=== PATIENT | female | born 1965 | race Native Hawaiian/Other Pacific Islander ===

== ENCOUNTER 2017-06-07 08:54 | Inpatient (IN) | payer OTHER, SELFPAY ==
[2017-06-07] VITALS (27 sets, daily range): BP systolic 133–202; BP diastolic 80–111; PULSE 60–98; RESP 14–20; TEMP 36.1–37.1; O2SAT 96–99; BMI 36.0; BMI 37.3
--- NOTE | 2017-06-07 | IR_ITS ---
CARDIAC CATHETERIZATION DATE OF CATHETERIZATION:06/07/2017 4:00 PM PROCEDURES: 1. Left heart catheterization 2. Left ventriculogram 3. Selective coronary angiogram INDICATION FOR TEST: 1. Suspected acute ST elevation myocardial infarction Informed consent was obtained prior to the procedure. COMPLICATIONS: None ESTIMATED BLOOD LOSS: Less than 10 ml. TECHNIQUE: One percent lidocaine used to anesthetize the right anterior aspect of the wrist. The right radial artery was accessed via the Seldinger technique. A 6 Yi sheath was placed in the right radial artery. 2.5 mg of verapamil, 800 mcg of nitroglycerin and 5000 U Heparin were given through the arterial sheath. The trap catheter was also used to perform left heart catheterization and left ventriculography. At the end of the procedure the patient was transferred to the post-op holding area in stable condition for arterial sheath removal. ANGIOGRAPHIC RESULTS: 1. The left main artery normal 2. The left anterior descending artery mild luminal irregularities 3. The circumflex artery dominant mild luminal irregularities 4. The right coronary artery small nondominant mild luminal irregularities 5. The VOGT ventriculogram reveals hyperdynamic 80% 6. The left ventricular end-diastolic pressure 25 mmHg IMPRESSION: 1. Mild nonflow limiting coronary artery disease 2. Hyperdynamic ventricle consistent with hypertensive heart disease 3. Elevated LVEDP consistent with hypertensive heart disease PLAN: 1. Medical management
--- NOTE | 2017-06-07 09:14 | HMH.EDURI ---
ED Disposition Clinical Impression: Acute coronary syndrome, Hypertensive emergency Disposition: Still a Patient Condition on Discharge: Serious - Critical Care Critical Care Time: No Attestation: On , the high probability of a clinically significant, sudden or life threatening deterioration of the following system(s) required my full and direct attention, intervention and personal management. The time I documented below is in addition to time spent performing reported procedures but includes the following listed in this critical care notation. The patient underwent multiple evaluations by me for chest painand elevated BP , statrted on medications, discussed with Dr Bellamy, who reviewed the EKG and adviseda cath procedure. The Cath staff was sent to bring the patient to the Audio Video Tech. Total Critical Care Time: 30 My critical care processes included: Assessment & monitoring of V/S, Initial and Re-exams, Data Review/Interpretation, Coordinating Care, Medication Orders and management, Documentation Medical Decision Making Vital Signs: 06/07/17 08:55 06/07/17 10:55 06/07/17 11:19 Temperature 98.7 F 97 F L Temperature Source Oral Oral Pulse Rate Pulse Rate [Left Brachial] 88 73 76 Respiratory Rate 14 20 18 Blood Pressure Blood Pressure [Right Arm] 180/98 202/111 181/94 Blood Pressure Mean [Right Arm] 125 141 123 Blood Pressure Source Blood Pressure Source [Right Arm] Automatic Cuff Automatic Cuff Automatic Cuff Blood Pressure Position Blood Pressure Position [Right Arm] Sitting Supine Supine 02 Sat by Pulse Oximetry 98 97 Oxygen Delivery Method Room Air Room Air 06/07/17 11:44 06/07/17 11:46 Temperature 98.1 F Temperature Source Oral Pulse Rate 75 Pulse Rate [Left Brachial] Respiratory Rate 14 Blood Pressure 181/94 Blood Pressure [Right Arm] Blood Pressure Mean [Right Arm] Blood Pressure Source Automatic Cuff Blood Pressure Source [Right Arm] Blood Pressure Position Sitting Blood Pressure Position [Right Arm] 02 Sat by Pulse Oximetry Oxygen Delivery Method Room Air Room Air I had an extensive discussion with Ms. Winters about her hypertension and the need for tighter control to avoid neurovascular complications, the nurse present on the bedside and the patient verbalized understanding. I did explain to Mrs. Leonardo the reason for every test ordered during the Ed visit. - Lab Data Lab Results 06/07/17 09:03: Influenza Type A Ag Negative, Influenza Type B Ag Negative 06/07/17 09:35: WBC 10.1, RBC 4.78, Hgb 14.1, Hct 42.0, MCV 87.8, MCH 29.4, MCHC 33.5, RDW 12.7, Plt Count 339, MPV 6.9 L, Neut % (Auto) 70.3, Lymph % (Auto) 20.6, [place] % (Auto) 6.7, Eos % (Auto) 2.1, Baso % (Auto) 0.3, Neut # (Auto) 7.1, Lymph # (Auto) 2.1, [place] # (Auto) 0.7, Eos # (Auto) 0.2, Baso # (Auto) 0.0 06/07/17 09:35: Sodium 141, Potassium 3.1 L, Chloride 106, Carbon Dioxide 28, Anion Gap 10.1, BUN 11, Creatinine 1.00, Estimated Creat Clear 98, Estimated GFR 58 L, Est GFR ( Amer) 70, Glucose 131 H, Calcium 9.1, Total Bilirubin 0.4, AST 16, ALT 22, Alkaline Phosphatase 145 H, Troponin I 0.42 H, Total Protein 7.9, Albumin 3.4, Globulin 4.5 H, Albumin/Globulin Ratio 0.8 L 06/07/17 09:35: Lactic Acid 1.2 06/07/17 09:35: D-Dimer 255 06/07/17 09:35: Group A Strep Rapid Negative Result diagrams: 06/07/17 09:35 06/07/17 09:35 Orders (Tests/Meds): ED MEDICATIONS Generic Name Dose Route Start Last Admin Trade Name Freq PRN Reason Stop Dose Admin Nitroglycerin/Dextrose 250 mls @ 1.5 mls/hr 06/07/17 11:00 06/07/17 11:04 Nitroglycerin 50mg/250ml D5w IV 07/07/17 10:59 5 mcg/min .Q24H ERICK 1.5 mls/hr Protocol Administration 5 MCG/MIN Discontinued Medications Generic Name Dose Route Start Last Admin Trade Name Freq PRN Reason Stop Dose Admin Aspirin 325 mg 06/07/17 10:46 06/07/17 11:07 Aspirin 325mg Tablet PO 06/07/17 10:47 325 mg ONCE ONE Administration Enox
--- NOTE | 2017-06-07 09:23 | ED_ITS ---
ED Disposition Clinical Impression: Acute coronary syndrome, Hypertensive emergency Disposition: Still a Patient Condition on Discharge: Serious - Critical Care Critical Care Time: No Attestation: On , the high probability of a clinically significant, sudden or life threatening deterioration of the following system(s) required my full and direct attention, intervention and personal management. The time I documented below is in addition to time spent performing reported procedures but includes the following listed in this critical care notation. The patient underwent multiple evaluations by me for chest painand elevated BP , statrted on medications, discussed with Dr Bellamy, who reviewed the EKG and adviseda cath procedure. The Cath staff was sent to bring the patient to the Driller'S Assistant. Total Critical Care Time: 30 My critical care processes included: Assessment & monitoring of V/S, Initial and Re-exams, Data Review/Interpretation, Coordinating Care, Medication Orders and management, Documentation Medical Decision Making Vital Signs: 06/07/17 08:55 06/07/17 10:55 06/07/17 11:19 Temperature 98.7 F 97 F L Temperature Source Oral Oral Pulse Rate Pulse Rate [Left Brachial] 88 73 76 Respiratory Rate 14 20 18 Blood Pressure Blood Pressure [Right Arm] 180/98 202/111 181/94 Blood Pressure Mean [Right Arm] 125 141 123 Blood Pressure Source Blood Pressure Source [Right Arm] Automatic Cuff Automatic Cuff Automatic Cuff Blood Pressure Position Blood Pressure Position [Right Arm] Sitting Supine Supine 02 Sat by Pulse Oximetry 98 97 Oxygen Delivery Method Room Air Room Air 06/07/17 11:44 06/07/17 11:46 Temperature 98.1 F Temperature Source Oral Pulse Rate 75 Pulse Rate [Left Brachial] Respiratory Rate 14 Blood Pressure 181/94 Blood Pressure [Right Arm] Blood Pressure Mean [Right Arm] Blood Pressure Source Automatic Cuff Blood Pressure Source [Right Arm] Blood Pressure Position Sitting Blood Pressure Position [Right Arm] 02 Sat by Pulse Oximetry Oxygen Delivery Method Room Air Room Air I had an extensive discussion with Ms. Winters about her hypertension and the need for tighter control to avoid neurovascular complications, the nurse present on the bedside and the patient verbalized understanding. I did explain to Mrs. Leonardo the reason for every test ordered during the Ed visit. - Lab Data Lab Results 06/07/17 09:03: Influenza Type A Ag Negative, Influenza Type B Ag Negative 06/07/17 09:35: WBC 10.1, RBC 4.78, Hgb 14.1, Hct 42.0, MCV 87.8, MCH 29.4, MCHC 33.5, RDW 12.7, Plt Count 339, MPV 6.9 L, Neut % (Auto) 70.3, Lymph % (Auto ) 20.6, [place] % (Auto) 6.7, Eos % (Auto) 2.1, Baso % (Auto) 0.3, Neut # (Auto) 7.1, Lymph # (Auto) 2.1, [place] # (Auto) 0.7, Eos # (Auto) 0.2, Baso # (Auto) 0.0 06/07/17 09:35: Sodium 141, Potassium 3.1 L, Chloride 106, Carbon Dioxide 28, Anion Gap 10.1, BUN 11, Creatinine 1.00, Estimated Creat Clear 98, Estimated GFR 58 L, Est GFR ( Amer) 70, Glucose 131 H, Calcium 9.1, Total Bilirubin 0.4, AST 16, ALT 22, Alkaline Phosphatase 145 H, Troponin I 0.42 H, Total Protein 7.9, Albumin 3.4, Globulin 4.5 H, Albumin/Globulin Ratio 0.8 L 06/07/17 09:35: Lactic Acid 1.2 06/07/17 09:35: D-Dimer 255 06/07/17 09:35: Group A Strep Rapid Negative Result diagrams: 06/07/17 09:3
--- NOTE | 2017-06-07 09:27 | XR_ITS ---
XR chest 2V HISTORY: ITS.REASON: right sided chest pain r/o pneumonia. ORDERING PHYSICIAN: Shaheed Westbrook MD PATIENT AGE: 52 years COMPARISON: 04/10/2017 FINDINGS: The cardiomediastinal silhouette and pulmonary vascularity are within normal limits. The lungs are clear without infiltrates, suspicious nodules, or pleural effusions. No acute bony abnormalities. IMPRESSION: No change with no acute finding
[2017-06-07 09:51] LABS: Basophils % 0.3 % (0.1-2.0); Eosinophils # 0.2 K/mm3 (0.0-0.4); Eosinophils % 2.1 % (0.1-12.0); Hemoglobin 14.1 g/dL (12.2-16.2); Lymphocytes # 2.1 K/mm3 (0.7-4.5); Lymphocytes % 20.6 K/mm3 (10-50); Mean Corpuscular HGB Conc 33.5 g/dL (31.8-35.4); Mean Corpuscular Hemoglobin 29.4 pg (27.0-31.2); Mean Corpuscular Volume 87.8 fl (81-99); Mean Platelet Volume 6.9 fl (7.4-10.4); Monocytes # 0.7 K/mm3 (0.1-1.0); Monocytes % 6.7 % (1.7-9.3); Neutrophils # 7.1 K/mm3 (1.8-7.8); Neutrophils % 70.3 % (37.0-80.0); Platelet Count 339 K/mm3 (142-424); Red Blood Count 4.78 M/mm3 (4.20-5.40); Red Cell Distribution Width 12.7 % (11.5-17.5); White Blood Count 10.1 K/mm3 (4.8-10.8)
--- NOTE | 2017-06-07 09:56 | PC.NURSE ---
MD AT BEDSIDE. EDUCATING PATIENT ON BLOOD PRESSURE
[2017-06-07 09:59] LABS: Strep Scrn Group A (Rapid) Negative (Negative)
[2017-06-07 10:02] LABS: Alanine Aminotransferase 22 U/L (12-78); Albumin Level 3.4 gm/dL (3.4-5.0); Albumin/Globulin Ratio 0.8 (1.1-1.8); Alkaline Phosphatase 145 U/L (46-116); Anion Gap 10.1 mEq/L (5-15); Aspartate Amino Transferase 16 U/L (15-37); Bilirubin,Total 0.4 mg/dL (0.2-1.0); Blood Urea Nitrogen 11 mg/dL (7-18); Calcium 9.1 mg/dL (8.5-10.1); Carbon Dioxide 28 mmol/L (21.0-32.0); Chloride 106 mmol/L (98-107); Creatinine Clearance Estimated 98 mL/min (0-300); Estimated Glomerular Filt Rate 58 ml/min (>60); GFR (African American) 70 ML/MIN (>60); Globulin 4.5 gm/dl (1.3-3.2); Glucose 131 mg/dL (74-106); Potassium 3.1 mmoL/L (3.5-5.1); Sodium 141 mmol/L (136-145); Total Protein,Serum 7.9 gm/dL (6.4-8.2); Troponin I 0.42 ng/ml (0.00-0.06)
[2017-06-07 10:08] LABS: Lactic Acid 1.2 mmol/L (0.4-2.0)
--- NOTE | 2017-06-07 11:07 | PC.NURSE ---
pt moved to room 4 to be placed on monitor after being placed on nitro drip
[2017-06-07 11:08] LABS: D-Dimer 255 (0-400)
--- NOTE | 2017-06-07 11:33 | PC.NURSE ---
WOOD PREPARATION SUPERVISOR AT BEDSIDE TO TAKE PT TO WOOD PREPARATION SUPERVISOR
--- NOTE | 2017-06-07 14:06 | HMH.CARDCON2 ---
History of Present Illness Consult date: 06/07/17 Requesting physician: Kashif Pelaez Consult reason: chest pain Chief complaint: chest pain History of present illness: 52-year-old black female admitted through the emergency department for chest pain. Patient was noted to have elevated ST segments on EKG and an elevated troponin with urgent cardiology consult. Patient was subsequently taken to cardiac catheterization laboratory technician where no culprit artery was identified. Patient was noted to have severe cardiomyopathy with an EF of about 25%. It was felt that her elevated troponins were related to hypertensive heart disease since her blood pressure in the emergency room was around 200/100 mmHg. Patient did require IV nitroglycerin for improvement in her blood pressure. She will be started on beta-jace, JEREMIAH inhibitor, Aldactone and Lasix. Review of Systems - Review of Systems Review of systems:: unable to obtain My exam of the patient occurred after her cardiac cath and she is sedated. Does awaken to answer questions but drifts off easily. [facility] History Medical History: Denies:: Cancer, Diabetes Mellitus Type 1, Diabetes Mellitus Type 2, MRSA Amputation: No - *Social History Smoking Status: Current every day smoker Tobacco Type: cigarettes Alcohol Intake: never - Psychiatric History Expresses thoughts of harming self/others: None Suicide Plan Description: No Plan Meds Home Medications Medication Instructions Recorded Confirmed Type No Known Home Medications [No 06/07/17 06/07/17 History Known Home Medications] Allergies Allergy/AdvReac Type Severity Reaction Status Date / Time No Known Allergies Allergy Verified 06/07/17 09:04 Exam Vital signs and Labs for Last 24 Hours: Temp Pulse Resp BP Pulse Ox 98.1 F 68 16 133/81 98 06/07/17 12:14 06/07/17 13:00 06/07/17 13:00 06/07/17 13:00 06/07/17 13:00 - Constitutional no acute distress, obese - *Routine Respiratory Exam Present: CTA bilaterally - *Routine Cardiovascular Exam Present: RRR - *Routine Abdominal Exam Present: soft, tenderness - *Routine Extremities Exam Comments: No pitting edema noted. Results 06/07/17 09:35 06/07/17 09:35 Assessment and Plan (1) Hypertensive emergency Current visit: Yes Status: Acute Category: Medical Code(s): I16.1 - Hypertensive emergency (2) Hypertensive cardiomyopathy Current visit: Yes Status: Acute Category: Medical Code(s): I11.9 - Hypertensive heart disease without heart failure; I43 - Cardiomyopathy in diseases classified elsewhere (3) Acute coronary syndrome Current visit: Yes Status: Acute Category: Medical Code(s): I24.9 - Acute ischemic heart disease, unspecified (4) Tobacco use Current visit: Yes Status: Acute Category: Social Hx Code(s): Z72.0 - Tobacco use - Assessment and plan all Dx Assessment and Plan for all problems:: 1. Will obtain an echocardiogram for reassessment of left ventricular ejection fraction, LV size and valve status. 2. We will start blood pressure medications including beta-jace, JEREMIAH inhibitor and diuretics. Continue aspirin therapy. 3. Smoking cessation.
--- NOTE | 2017-06-07 14:33 | HMH.HP ---
*Admission Date: 06/07/17 <Isis Guerra 06/07/17 14:38> *Chief complaint: chest pain <Isis Guerra 06/07/17 16:36> *History of present illness: Patient is now awake and able to give history. States she has had mild intermittent right sided chest pain for past year. Has been worse in past 2-3 weeks and yesterday had to leave work. Pain is pleuritic in nature and starts under right breast and radiates around right side of chest. She has had a cough that is occasionally productive. Did not seek medical attention until this AM due to lack of transportation. When her pain persisted this morning, she decided to walk to the hospital which is about 2 miles from her home. States she had to stop several times on the way. She was told her BP was high when she had her hysterectomy and was placed on medication but quit taking it. SHe has not had a family doctor since Dr. Cunningham . <LatanyaKashif gerber - 06/07/17 19:47> 52-year-old black female admitted through the emergency department for chest pain. Patient was noted to have elevated ST segments on EKG and an elevated troponin with urgent cardiology consult. Patient was subsequently taken to cardiac laboratory mechanical technician where no culprit artery was identified. Patient was noted to have severe cardiomyopathy with an EF of about 25%. It was felt that her elevated troponins were related to hypertensive heart disease since her blood pressure in the emergency room was around 200/100 mmHg. Patient did require IV nitroglycerin for improvement in her blood pressure. She will be started on a beta-jace, JEREMIAH inhibitor, Aldactone and Lasix. <Isis Guerra 06/07/17 16:36> [facility] History Medical History: Denies:: Cancer, Diabetes Mellitus Type 1, Diabetes Mellitus Type 2, MRSA <Veto Guerraa 06/07/17 14:38> Other Surgeries: Yes: Hysterectomy-Total <Kashif Pelaez - 06/07/17 19:47> Amputation: No <ArleymerlyIsis 06/07/17 14:38> - *Social History Smoking Status: Current every day smoker <Isis Guerra 06/07/17 14:38> Tobacco Type: cigarettes <Isis Guerra 06/07/17 14:38> # Packs/Day (cigarettes): 1 <Kashif Pelaez - 06/07/17 19:47> Alcohol Intake: former <Kashif Pelaez - 06/07/17 19:47> never <CharlieIsis 06/07/17 14:38> Substance Use Type: denies use <Kashif Pelaez - 06/07/17 19:47> 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 Mother was paralyzed in her legs with some type of back problem. No family hx of HBP or heart disease. <LatanyaKashif Fam - 06/07/17 19:47> Review of Systems - Review of Systems Review of systems:: unable to obtain (patient is lethargic - unable to wake up) <Isis Guerra 06/07/17 16:36> Meds Home Medications Medication Instructions Recorded Confirmed Type No Known Home Medications [No 06/07/17 06/07/17 History Known Home Medications] <LatanyaKashif mena - 06/07/17 19:47> Allergies Allergy/AdvReac Type Severity Reaction Status Date / Time No Known Allergies Allergy Verified 06/07/17 09:04 <LatanyaKashif Otto - 06/07/17 19:47> Exam Vital signs and Labs for Last 24 Hours: Temp Pulse Resp BP Pulse Ox 98.6 F 74 20 143/83 96 06/07/17 18:30 06/07/17 18:30 06/07/17 18:30 06/07/17 18:30 06/07/17 18:30 <Kashif Pelaez - 06/07/17 19:47> Temp Pulse Resp BP Pulse Ox 98.1 F 69 16 142/85 96 06/07/17 12:14 06/07/17 14:29 06/07/17 14:29 06/07/17 14:29 06/07/17 14:29 Lab Results 06/07/17 09:03: Influenza Type A Ag Neg
--- NOTE | 2017-06-07 14:36 | P.HP_ITS ---
*Admission Date: 06/07/17 <Isis Guerra 06/07/17 14:38> *Chief complaint: chest pain <Isis Guerra 06/07/17 16:36> *History of present illness: Patient is now awake and able to give history. States she has had mild intermittent right sided chest pain for past year. Has been worse in past 2-3 weeks and yesterday had to leave work. Pain is pleuritic in nature and starts under right breast and radiates around right side of chest. She has had a cough that is occasionally productive. Did not seek medical attention until this AM due to lack of transportation. When her pain persisted this morning, she decided to walk to the hospital which is about 2 miles from her home. States she had to stop several times on the way. She was told her BP was high when she had her hysterectomy and was placed on medication but quit taking it. SHe has not had a family doctor since Dr. Cunningham . <LatanyaKashif gerber - 06/07/17 19:47> 52-year-old black female admitted through the emergency department for chest pain. Patient was noted to have elevated ST segments on EKG and an elevated troponin with urgent cardiology consult. Patient was subsequently taken to cardiac brick and blocker aid labor where no culprit artery was identified. Patient was noted to have severe cardiomyopathy with an EF of about 25%. It was felt that her elevated troponins were related to hypertensive heart disease since her blood pressure in the emergency room was around 200/100 mmHg. Patient did require IV nitroglycerin for improvement in her blood pressure. She will be started on a beta-jace, JEREMIAH inhibitor, Aldactone and Lasix. <Isis Guerra 06/07/17 16:36> [facility] History Medical History: Denies:: Cancer, Diabetes Mellitus Type 1, Diabetes Mellitus Type 2, MRSA < Veto Guerraa 06/07/17 14:38> Other Surgeries: Yes: Hysterectomy-Total <Kashif Pelaez - 06/07/17 19 :47> Amputation: No <ArleymerlyIsis 06/07/17 14:38> - *Social History Smoking Status: Current every day smoker <Isis Guerra 06/07/17 14:38> Tobacco Type: cigarettes <Isis Guerra 06/07/17 14:38> # Packs/Day (cigarettes): 1 <Latanya,Kashif Fam - 06/07/17 19:47> Alcohol Intake: former <Kashif Pelaez - 06/07/17 19:47> never <Isis Guerra 06/07/17 14:38> Substance Use Type: denies use <Kashif Pelaez - 06/07/17 19:47> 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 Mother was paralyzed in her legs with some type of back problem. No family hx of HBP or heart disease. < Kashif Pelaez - 06/07/17 19:47> Review of Systems - Review of Systems Review of systems:: unable to obtain (patient is lethargic - unable to wake up) <Isis Guerra 06/07/17 16:36> Meds Home Medications Medication Instructions Recorded Confirmed Type No Known Home Medications [No 06/07/17 06/07/17 History Known Home Medications] <Kashif Pelaez 06/07/17 19:47> Allergies Allergy/AdvReac Type Severity Reaction Status Date / Time No Known Allergies Allergy Verified 06/07/17 09:04 <Kashif Pelaez 06/07/17 19:47> Exam Vital signs and Labs for Last 24 Hours:
--- NOTE | 2017-06-07 17:18 | PC.NURSE ---
pt is drowsy and unable to answer all her admission questions at this time due to her sedation in helper animal laboratory. pt will respond if you talk to her but she falls back asleep. will continue to monitor
--- NOTE | 2017-06-07 17:38 | PC.NURSE ---
Tracelet has been removed, no bleeding or swelling noted at site, 2x2 placed with tegaderm over incision. will continue to monitor
--- NOTE | 2017-06-07 17:47 | PC.NURSE ---
Pt was wanting to take her home humalog insulin pen, discussed with pt that I would contact Marcelo and see if he would order that instead of the ordered sliding scale on emar, while waiting for a response from MD, pt took her own insulin of 18 units. discussed with pt that MD might want to hold some medicine due to her scheduled heart cath in the am. home meds were put in drawer until MD orders them. will continue to monitor
--- NOTE | 2017-06-07 19:46 | PC.NURSE ---
Nurse is aware of vitals
[2017-06-08] VITALS (14 sets, daily range): BP systolic 123–178; BP diastolic 55–98; PULSE 66–95; RESP 16–22; TEMP 36.6–37.1; O2SAT 93–98
--- NOTE | 2017-06-08 04:01 | PC.NURSE ---
PT IS A&OX3. SHE DENIES CHEST PAIN EXCEPT SHE STATES THAT SHE HAS PAIN ON HER RIGHT SIDE WHEN SHE DEEP BREATHS. SHE IS S/P HEART CATH WITH NO STENT PLACEMENT. RIGHT RADIAL DSG IS C/D/I. SHE HAS AMBULATED TO THE BATHROOM INDEPENDENTLY.
[2017-06-08 06:46] LABS: Chol/HDL Ratio 4.9 (1-3.5); Cholesterol 141 mg/dL (140-200); HDL Cholesterol 29 mg/dL (29-89); LDL Cholesterol 83 mg/dL (0-130); Triglycerides 145 mg/dL (30-200); VLDL Cholesterol 29 mg/dL (0-40)
[2017-06-08 06:57] LABS: Anion Gap 11.2 mEq/L (5-15); Blood Urea Nitrogen 8 mg/dL (7-18); Carbon Dioxide 26 mmol/L (21.0-32.0); Chloride 108 mmol/L (98-107); Creatinine Clearance Estimated 115 mL/min (0-300); Creatinine,Serum 0.85 mg/dL (0.55-1.02); Estimated Glomerular Filt Rate 70 ml/min (>60); GFR (African American) 85 ML/MIN (>60); Glucose 119 mg/dL (74-106); Potassium 3.2 mmoL/L (3.5-5.1); Sodium 142 mmol/L (136-145); Thyroid Stimulating Hormone 0.81 uIU/ml (0.358-3.740)
--- NOTE | 2017-06-08 07:53 | P.CONPHA_ITS ---
[facility] Pharmacy VTE Monitoring - Patient Demographics Admission date: 06/07/17 Report Date: 06/08/17 Time: 07:53 Allergies/Adverse Reactions: No Known Allergies Allergy (Verified 06/07/17 09:04) Height: 1.6 m Weight: 95.396 kg Patient Problems: Current Active Problems Acute coronary syndrome (Acute) Hypertensive emergency (Acute) Hypertensive cardiomyopathy (Acute) Tobacco use (Acute) COPD (chronic obstructive pulmonary disease) (Acute) - VTE Risk Labs: VTE Related Lab Results Hgb 14.1 g/dL (12.2-16.2) 06/07/17 09:35 Hct 42.0 % (37.0-47.0) 06/07/17 09:35 Plt Count 339 K/mm3 (142-424) 06/07/17 09:35 BUN 8 mg/dL (7-18) D 06/08/17 05:30 Creatinine 0.85 mg/dL (0.55-1.02) 06/08/17 05:30 Estimated Creat Clear 115 mL/min (0-300) 06/08/17 05:30 Was VTE Risk Assessment Performed: No VTE Risk Level: Very Low Risk - Prophylaxis VTE Prophylaxis Ordered?: Yes Types of VTE Prophylaxis: TEDS Knee High Location of Applied Device: Bilateral Lower Extremeties - VTE Diagnosis Confirmed Treatment or plan recommended: Continue Current Treatment
--- NOTE | 2017-06-08 08:28 | HMH.ACPN ---
Internal Medicine - PN: Subj *Date: 06/08/17 *Time: 16:31 Interval history: Patient states her chest pain has resolved. Wants to go home. She is still currently on a nitro drip for her blood pressure. She slept well and has been eating this morning. Patient seen and examined this AM. Per discussion with Bert Riggs, her coronaries were normal but EF was 25%. (Cath report not available on chart) Plan is to continue treating her BP and wean Nitro drip and will likely need LifeVest. Exam Vital signs and Labs for Last 24 Hours: Temp Pulse Resp BP Pulse Ox 98.7 F 72 18 148/84 97 06/08/17 06:02 06/08/17 06:02 06/08/17 06:02 06/08/17 06:02 06/08/17 06:02 Laboratory Results - last 24 hr 06/08/17 05:30: Sodium 142, Potassium 3.2 L, Chloride 108 H, Carbon Dioxide 26, Anion Gap 11.2, BUN 8 D, Creatinine 0.85, Estimated Creat Clear 115, Estimated GFR 70, Est GFR ( Amer) 85 D, Glucose 119 H, TSH 0.81 06/08/17 05:30: Magnesium 2.0, Triglycerides 145, Cholesterol 141, LDL Cholesterol 83, VLDL Cholesterol 29, HDL Cholesterol 29, Cholesterol/HDL Ratio 4.9 H I & O for Last 24 hours: Intake & Output 06/05/17 06/06/17 06/07/17 06/08/17 11:59 11:59 11:59 11:59 Intake Total 58 / 58 Balance 58 / 58 Weight 210 lb 5 oz - Constitutional no acute distress - *Routine Respiratory Exam Present: wheezes. Absent: crackles - *Routine Cardiovascular Exam Present: RRR - *Routine Abdominal Exam Present: soft, normoactive bowel sounds. Absent: tenderness - *Routine Extremities Exam Absent: edema Assessment and Plan (1) Hypertensive cardiomyopathy Current visit: Yes Status: Acute Category: Medical Code(s): I11.9 - Hypertensive heart disease without heart failure; I43 - Cardiomyopathy in diseases classified elsewhere (2) Hypertensive emergency Current visit: Yes Status: Acute Category: Medical Code(s): I16.1 - Hypertensive emergency (3) Tobacco use Current visit: Yes Status: Acute Category: Social Hx Code(s): Z72.0 - Tobacco use - Assessment and plan all Dx Assessment and Plan for all problems:: CXR showed nothing acute. The patient is much better today. Defer to cardiology to wean off the nitro drip and start on medication.
--- NOTE | 2017-06-08 09:04 | HMH.CARDPN2 ---
Subjective PN (PG) Date: 06/08/17 Time: 09:04 Principal diagnosis: STEMI, HTN Cardiomyopathy Interval history: No complaints. Feeling better. 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 PN Exam ([facility]) Vital signs: Temp Pulse Resp BP Pulse Ox 98.7 F 72 18 148/84 97 06/08/17 06:02 06/08/17 06:02 06/08/17 06:02 06/08/17 06:02 06/08/17 06:02 - Routine Respiratory Exam Present: wheezes - Routine Cardiovascular Exam Present: RRR, murmur A/P Progress Note ([facility]) (1) Hypertensive emergency Status: Acute Current Visit: Yes (2) Hypertensive cardiomyopathy Status: Acute Assessment and plan: Will switch metoprolol to coreg 25 mg BID and increase lisinopril to 20 mg BID. Continue diuretics. Will await echo results but likely will need LifeVest. Current Visit: Yes (3) Acute coronary syndrome Status: Acute Current Visit: Yes (4) Tobacco use Status: Acute Current Visit: Yes
--- NOTE | 2017-06-08 09:07 | P.PN_ITS ---
Subjective PN (PG) Date: 06/08/17 Time: 09:04 Principal diagnosis: STEMI, HTN Cardiomyopathy Interval history: No complaints. Feeling better. 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 PN Exam ([facility] Owned) Vital signs: Temp Pulse Resp BP Pulse Ox 98.7 F 72 18 148/84 97 06/08/17 06:02 06/08/17 06:02 06/08/17 06:02 06/08/17 06:02 06/08/17 06:02 - Routine Respiratory Exam Present: wheezes - Routine Cardiovascular Exam Present: RRR, murmur A/P Progress Note ([facility]) (1) Hypertensive emergency Status: Acute Current Visit: Yes (2) Hypertensive cardiomyopathy Status: Acute Assessment and plan: Will switch metoprolol to coreg 25 mg BID and increase lisinopril to 20 mg BID. Continue diuretics. Will await echo results but likely will need LifeVest. Current Visit: Yes (3) Acute coronary syndrome Status: Acute Current Visit: Yes (4) Tobacco use Status: Acute Current Visit: Yes
--- NOTE | 2017-06-08 16:10 | HMH.DCSUM ---
General - General Admission date: 06/07/17 <LatanyaKashif gerber - 06/08/17 16:14> Discharge date: 06/08/17 <Isis Guerra - 06/11/17 21:32> HPI HPI: 52-year-old black female admitted through the emergency department for chest pain. Patient was noted to have elevated ST segments on EKG and an elevated troponin with urgent cardiology consult. Patient was subsequently taken to cardiac [facility] where no culprit artery was identified. Patient was noted to have severe cardiomyopathy with an EF of about 25%. It was felt that her elevated troponins were related to hypertensive heart disease since her blood pressure in the emergency room was around 200/100 mmHg. Patient did require IV nitroglycerin for improvement in her blood pressure. She will be started on a beta-jace, JEREMIAH inhibitor, Aldactone and Lasix. <Isis Guerra - 06/11/17 21:32> Patient is now awake and able to give history. States she has had mild intermittent right sided chest pain for past year. Has been worse in past 2-3 weeks and yesterday had to leave work. Pain is pleuritic in nature and starts under right breast and radiates around right side of chest. She has had a cough that is occasionally productive. Did not seek medical attention until this AM due to lack of transportation. When her pain persisted this morning, she decided to walk to the hospital which is about 2 miles from her home. States she had to stop several times on the way. She was told her BP was high when she had her hysterectomy and was placed on medication but quit taking it. SHe has not had a family doctor since Dr. Cunningham . <Kashif Pelaez - 06/08/17 16:14> Objective Vital signs: Temp Pulse Resp BP Pulse Ox 97.9 F 67 20 141/88 95 06/08/17 12:00 06/08/17 15:00 06/08/17 15:00 06/08/17 15:00 06/08/17 15:00 <Isis Guerra - 06/11/17 21:32> Temp Pulse Resp BP Pulse Ox 97.9 F 71 22 178/98 95 06/08/17 12:00 06/08/17 12:00 06/08/17 12:00 06/08/17 12:00 06/08/17 12:00 <LatanyaKashif Fam - 06/08/17 16:14> Narrative: - Constitutional Comments: Lethargic, unable to wake patient - *Routine HEENT Exam Head: Present: normocephalic, atraumatic Eye: Present: PERRL ENT: Present: mucous membranes dry - *Routine Neck Exam Present: supple. Absent: carotid bruit - *Routine Respiratory Exam Present: rhonchi, wheezes (bilateral) Present: rhonchi (bilaterally). Absent: crackles - *Routine Cardiovascular Exam Present: RRR - *Routine Abdominal Exam Present: soft, normoactive bowel sounds - *Routine Extremities Exam Absent: edema - *Routine Neurological Exam Pt asleep, unable to wake <Isis Guerra - 06/11/17 21:32> Hospital Course Hospital Course: Pt had heart cath but needed no stenting. The patient improved and her CP resolved. Her LVEDP was 25 but her EF was actually 80%. She was weaned off her Nitro drip and BP improved. Dr. Cespedes approved her to be discharged, so she was discharged on Verapamil ER 180 bid and Lasix 40mg qd and will f/u with Dr. Cespedes in 1 week. She was urged to quit smoking. <Isis Guerra - 06/11/17 21:32> Results Labs on day of discharge: Labs from last 24 hours 06/08/17 06/08/17 05:30 05:30 Sodium 142 Potassium 3.2 L Chloride 108 H Carbon Dioxide 26 Anion Gap 11.2 BUN 8 D Creatinine 0.85 Estimated Creat Clear 115 Estimated GFR 70 Est GFR ( Amer) 85 D Glucose 119 H Magnesium 2.0 Triglycerides 145 Cholesterol 141 LDL Cholesterol 83 VLDL Cholesterol 29 HDL Cholesterol 29 Cholesterol/HDL Ratio 4.9 H TSH 0.81 <Latanya,Kashif Fam - 06/08/17 16:14> DS: Diagnosis - Discharge Diagnosis (1) Hypertensive cardiomyopathy Status: Acute (2) Hypertensive emergency Status: Acute (3) Tobacco use Status: Acut
--- NOTE | 2017-06-08 16:13 | P.DS_ITS ---
General - General Admission date: 06/07/17 <LatanyaKashif gerber - 06/08/17 16:14> Discharge date: 06/08/17 <Isis Guerra - 06/11/17 21:32> HPI HPI: 52-year-old black female admitted through the emergency department for chest pain. Patient was noted to have elevated ST segments on EKG and an elevated troponin with urgent cardiology consult. Patient was subsequently taken to cardiac label [facility] where no culprit artery was identified. Patient was noted to have severe cardiomyopathy with an EF of about 25%. It was felt that her elevated troponins were related to hypertensive heart disease since her blood pressure in the emergency room was around 200/100 mmHg. Patient did require IV nitroglycerin for improvement in her blood pressure. She will be started on a beta-jace, JEREMIAH inhibitor, Aldactone and Lasix. <Isis Guerra - 06/11/17 21:32> Patient is now awake and able to give history. States she has had mild intermittent right sided chest pain for past year. Has been worse in past 2-3 weeks and yesterday had to leave work. Pain is pleuritic in nature and starts under right breast and radiates around right side of chest. She has had a cough that is occasionally productive. Did not seek medical attention until this AM due to lack of transportation. When her pain persisted this morning, she decided to walk to the hospital which is about 2 miles from her home. States she had to stop several times on the way. She was told her BP was high when she had her hysterectomy and was placed on medication but quit taking it. SHe has not had a family doctor since Dr. Cunningham . <Kashif Pelaez - 06/08/17 16:14> Objective Vital signs: Temp Pulse Resp BP Pulse Ox 97.9 F 67 20 141/88 95 06/08/17 12:00 06/08/17 15:00 06/08/17 15:00 06/08/17 15:00 06/08/17 15:00 <Isis Guerra - 06/11/17 21:32> Temp Pulse Resp BP Pulse Ox 97.9 F 71 22 178/98 95 06/08/17 12:00 06/08/17 12:00 06/08/17 12:00 06/08/17 12:00 06/08/17 12:00 <Kashif Pelaez - 06/08/17 16:14> Narrative: - Constitutional Comments: Lethargic, unable to wake patient - *Routine HEENT Exam Head: Present: normocephalic, atraumatic Eye: Present: PERRL ENT: Present: mucous membranes dry - *Routine Neck Exam Present: supple. Absent: carotid bruit - *Routine Respiratory Exam Present: rhonchi, wheezes (bilateral) Present: rhonchi (bilaterally). Absent: crackles - *Routine Cardiovascular Exam Present: RRR - *Routine Abdominal Exam Present: soft, normoactive bowel sounds - *Routine Extremities Exam Absent: edema - *Routine Neurological Exam Pt asleep, unable to wake <Isis Guerra - 06/11/17 21:32> Hospital Course Hospital Course: Pt had heart cath but needed no stenting. The patient improved and her CP resolved. Her LVEDP was 25 but her EF was actually 80%. She was weaned off her Nitro drip and BP improved. Dr. Cespedes approved her to be discharged, so she was discharged on Verapamil ER 180 bid and Lasix 40mg qd and will f/u with Dr. Cespedes in 1 week. She was urged to quit smoking. <Isis Guerra - 06/11/17 21:32> Results Labs on day of discharge: Labs from last 24 hours 06/08/17 06/08/17 05:30 05:30 Sodium 142 Potassium 3.2 L Chloride 108 H Carbon Dioxide 26
--- NOTE | 2017-06-14 10:54 | PC.NURSE ---
post procedure call made, pt did not answer, message left for pt to call hospital with any questions/concerns
== END 2017-06-08 16:45 | disposition home or self-care (01) | DRG 287 ==
LOC: ER 09:24 → CATHLAB 11:44 → 2ND 12:12 → ICU 18:25
PROVIDERS: Physician Assistant; Admitting Provider Internal Medicine; Emergency Provider Emergency Medicine; PCP Family Medicine; Visit Provider Family Medicine
PROC: 4A023N7 Measurement of Cardiac Sampling and Pressure, Left Heart, Percutaneous Approach (ICD-10-PCS; principal; 2017-06-07 12:00)
DX: I25.10 Atherosclerotic heart disease of native coronary artery without angina pectoris (principal); I24.9 Acute ischemic heart disease, unspecified; I11.9 Hypertensive heart disease without heart failure; I16.1 Hypertensive emergency; J44.9 Chronic obstructive pulmonary disease, unspecified; Z72.0 Tobacco use
CPT/HCPCS: 71046; 80048; 80053; 80061; 83605; 83735; 84443; 84484; 85025; 85378; 87040; 87275; 87276; 87430; 93005; 93458; 96365; 96366; 96375; 99152; 99284; C1725; C1760; C1769; J1644; Q9967

== ENCOUNTER 2020-05-25 13:34 | Inpatient (IN) | payer MEDICAID, SELFPAY ==
[2020-05-25] VITALS (44 sets, daily range): BP systolic 153–254; BP diastolic 10–128; PULSE 50–94; RESP 16–20; TEMP 36.6–36.7; O2SAT 92–100; BMI 36.7; BMI 80.9; BMI 33.5
--- NOTE | 2020-05-25 13:45 | CT_ITS ---
PROCEDURE: CT HEAD/BRAIN WO CON Referring Doctor: BetofabyNomi mackay Patient Age:55Y CLINICAL INDICATION: left side numbness left-sided weakness started yesterday COMPARISON: No exams were available for comparison TECHNIQUE: No IV contrast. Standard axial images were obtained. All CT scans at the facility use one or more dose reduction, viz: automated exposure control, ma/kV adjustment per patient size (including targeted exams where dose is matched to indication, i.e. head), or iterative reconstruction technique. FINDINGS: No acute intracranial findings. No intracranial hemorrhage. No subdural or extra-axial fluid collection is evident. Posterior fossa un. No significant findings but or or rkable. Skull intact- calvarium unremarkable appearance. Nomastoid effusions. Mastoid air cells are well developed and clear. Middle ear clear. IAC's symmetric. Nosinus air-fluid level. Visualized portions of the paranasal sinuses appear clear with only borderline mucosal thickening at the ethmoid air cells. IMPRESSION: No acute intracranial findings . No hemorrhage. No subdural. No territorial infarct evident Unremarkable CT of head without contrast. Dictated by: Nehemiah Decker MD 05/25/2020 14:04 Nehemiah Decker MD in [place] 05/25/2020 14:04
--- NOTE | 2020-05-25 13:45 | PC.NURSE ---
patient to ct at this time
--- NOTE | 2020-05-25 13:51 | XR_ITS ---
PROCEDURE: XR CHEST PORTABLE Referring Doctor: Jacob Nomi Patient Age:55Y CLINICAL HISTORY: WEAKNESS left-sided weakness possible CVA. Nonsmoker COMPARISON: CR CXR CHEST(2 VIEWS-NOT PORTABLE) from 04/10/2017 CR CXR2V XR chest 2V from 06/07/2017 FINDINGS: AP portable CXR Lungs well expanded and clear with nothing definitely acute, no significant change since May 2017 . Heart upper normal in size borderline cardiomegaly. And mediastinal structures stable unremarkable. And pulmonary vascularity are within normal limits. The lungs are clear without infiltrates, suspicious nodules, or pleural effusions. No acute bony abnormalities. IMPRESSION: Stable chest with nothing definitely acute Borderline cardiomegaly. Dictated by: Nehemiah Decker MD 05/25/2020 18:39 Nehemiah Decker MD in [facility] 05/25/2020 18:39
--- NOTE | 2020-05-25 13:57 | PC.NURSE ---
patient back from ct
--- NOTE | 2020-05-25 14:07 | PC.NURSE ---
Pt moved to room 2 for closer monitoring
--- NOTE | 2020-05-25 14:14 | ECG_ITS ---
APPROVED REPORT Exam: Resting ECG HR:66 bpm ECG Measurements Heart Rate 66 AXES OK 178 P 49 QRSd 106 QRS -14 QT 446 T 102 QTc 467 Conclusion Normal sinus rhythm Possible Left atrial enlargement Incomplete left bundle branch block Left ventricular hypertrophy with repolarization abnormality Abnormal ECG Electronically signed by : Pablito Robertson, 05/25/2020 19:51:52
[2020-05-25 14:16] LABS: Basophils % 0.4 % (0.1-2.0); Eosinophils # 0.1 K/mm3 (0.0-0.4); Eosinophils % 1.6 % (0.1-12.0); Hematocrit 53.7 % (37.0-47.0); Hemoglobin 17.9 g/dL (12.2-16.2); Lymphocytes # 1.5 K/mm3 (0.7-4.5); Lymphocytes % 16.8 % (10-50); Mean Corpuscular HGB Conc 33.3 g/dL (31.8-35.4); Mean Corpuscular Hemoglobin 30.1 pg (27.0-31.2); Mean Corpuscular Volume 90.4 fl (81-99); Mean Platelet Volume 6.7 fl (7.4-10.4); Monocytes # 0.3 K/mm3 (0.1-1.0); Monocytes % 3.5 % (1.7-9.3); Neutrophils # 7.1 K/mm3 (1.8-7.8); Neutrophils % 77.8 % (37.0-80.0); Platelet Count 268 K/mm3 (142-424); Red Blood Count 5.94 M/mm3 (4.20-5.40); Red Cell Distribution Width 14.4 % (11.5-17.5); White Blood Count 9.1 K/mm3 (4.8-10.8)
--- NOTE | 2020-05-25 14:18 | HMH.EDGENADL ---
ED Disposition Clinical Impression: Uncontrolled hypertension CVA (cerebral vascular accident) Qualifiers: CVA mechanism: unspecified Qualified Code(s): I63.9 - Cerebral infarction, unspecified Disposition: Admitted As Inpatient Condition on Discharge: Serious Referrals: PCP,No [Primary Care Provider] - - Critical Care Critical Care Time: Yes Attestation: On 05/25/20, the high probability of a clinically significant, sudden or life threatening deterioration of the following system(s) required my full and direct attention, intervention and personal management. The time I documented below is in addition to time spent performing reported procedures but includes the following listed in this critical care notation. Vital system(s) involved:: Circulatory Failure My critical care processes included: Assessment & monitoring of V/S, Initial and Re-exams, Data Review/Interpretation, Coordinating Care, Medication Orders and management, Documentation Medical Decision Making - Medical Records Medical records reviewed: Yes: I reviewed the patient's medical records. MR Comment: Prior left heart cath report reviewed, below - Mike Inquiry Pt receiving controlled substance: No Vital Signs: 05/25/20 13:35 05/25/20 13:53 05/25/20 14:05 Temperature 98 F Temperature Source Oral Pulse Rate [Radial] 77 68 72 Respiratory Rate 20 Blood Pressure [Right Arm] 253/128 H 239/103 H 254/101 H Blood Pressure Mean [Right Arm] 169 148 152 Blood Pressure Source [Right Arm] Blood Pressure Position [Right Arm] Sitting Sitting 02 Sat by Pulse Oximetry 98 97 Oxygen Delivery Method Room Air Room Air 05/25/20 14:30 05/25/20 15:30 05/25/20 15:41 Temperature Temperature Source Pulse Rate [Radial] 64 63 63 Respiratory Rate Blood Pressure [Right Arm] 233/118 H 243/111 H 228/105 H Blood Pressure Mean [Right Arm] 156 155 146 Blood Pressure Source [Right Arm] Blood Pressure Position [Right Arm] Sitting Sitting 02 Sat by Pulse Oximetry 99 Oxygen Delivery Method 05/25/20 15:51 05/25/20 15:56 05/25/20 16:00 Temperature Temperature Source Pulse Rate [Radial] 69 74 61 Respiratory Rate 20 Blood Pressure [Right Arm] 224/99 H 162/111 H 197/92 H Blood Pressure Mean [Right Arm] 140 128 127 Blood Pressure Source [Right Arm] Automatic Cuff Blood Pressure Position [Right Arm] Sitting Sitting Sitting 02 Sat by Pulse Oximetry 96 Oxygen Delivery Method Room Air 05/25/20 16:04 05/25/20 16:06 05/25/20 16:11 Temperature Temperature Source Pulse Rate [Radial] 64 65 67 Respiratory Rate Blood Pressure [Right Arm] 183/82 H 182/73 H 188/90 H Blood Pressure Mean [Right Arm] 115 109 122 Blood Pressure Source [Right Arm] Blood Pressure Position [Right Arm] Sitting Sitting Sitting 02 Sat by Pulse Oximetry Oxygen Delivery Method 05/25/20 16:16 05/25/20 16:24 05/25/20 17:07 Temperature Temperature Source Pulse Rate [Radial] 65 56 L 70 Respiratory Rate 16 20 Blood Pressure [Right Arm] 196/84 H 206/81 H 234/111 H Blood Pressure Mean [Right Arm] 121 122 152 Blood Pressure Source [Right Arm] Blood Pressure Position [Right Arm] Sitting Supine 02 Sat by Pulse Oximetry 96 96 Oxygen Delivery Method - Lab Data Lab Results 05/25/20 14:00: WBC 9.1, RBC 5.94 H, Hgb 17.9 H, Hct 53.7 H, MCV 90.4, MCH 30.1, MCHC 33.3, RDW 14.4, Plt Count 268, MPV 6.7 L, Neut % (Auto) 77.8, Lymph % (Auto) 16.8, [place] % (Auto) 3.5, Eos % (Auto) 1.6, Baso % (Auto) 0.4, Neut # (Auto) 7.1, Lymph # (Auto) 1.5, [place] # (Auto) 0.3, Eos # (Auto) 0.1, Baso # (Auto) 0.0 05/25/20 14:00: PT 11.3, INR 1.02 05/25/20 14:00: Sodium 137, Potassium 3.6, Chloride 102, Carbon Dioxide 27, Anion Gap 11.6, BUN 18 H, Creatinine 1.00, Estimated Creat Clear 54, Estimated GFR 57 L, Est GFR ( Amer) 69, Glucose 167 H, Calcium 10.4 H, Total Bilirubin 0.9, AST 32, ALT 25, Alkaline Phosphatase 128 H, Total Protein 9.2 H, Albumin 4.
[2020-05-25 14:27] LABS: INR 1.02 (0.9-1.1); Prothrombin Time 11.3 seconds (9.4-11.8)
[2020-05-25 14:28] LABS: Alanine Aminotransferase 25 U/L (12-78); Albumin Level 4.8 g/dl (3.5-5.0); Albumin/Globulin Ratio 1.1 (1.1-1.8); Alkaline Phosphatase 128 U/L (38-126); Anion Gap 11.6 mEq/L (5-15); Aspartate Amino Transferase 32 U/L (14-36); Bilirubin,Total 0.9 mg/dl (0.2-1.3); Blood Urea Nitrogen 18 mg/dl (7-17); Calcium 10.4 mg/dl (8.4-10.2); Carbon Dioxide 27 mmol/L (22.0-30.0); Chloride 102 mmol/L (98-107); Creatinine Clearance Estimated 54 mL/min (50-200); Estimated Glomerular Filt Rate 57 ml/min (>60); GFR (African American) 69 ML/MIN (>60); Globulin 4.4 g/dL (1.3-3.2); Glucose 167 mg/dl (74-100); Potassium 3.6 mmoL/L (3.5-5.1); Sodium 137 mmol/L (136-145); Total Protein,Serum 9.2 g/dl (6.3-8.2)
--- NOTE | 2020-05-25 14:34 | CT_ITS ---
Procedure: CT ANGIO NECK Referring Doctor: Nomi James Patient Age:55Y CLINICAL HISTORY: stroke. Left-sided weakness CVA suspect but COMPARISON: CT CT ANGIO HEAD from 05/25/2020 TECHNIQUE: IV Contrast: 100ml Isovue 370 Axial images obtained with sagittal and coronal reformats. All CT scans at the facility use one or more dose reduction, viz: automated exposure control, ma/kV adjustment per patient size (including targeted exams where dose is matched to indication, i.e. head), or iterative reconstruction technique. FINDINGS: CT angiogram neck: Satisfactory appearance of great vessels arising from the aortic arch.. No stenosis or plaque at this level Both carotid arteries are widely patent to the base of the skull... Right carotid-very small calcified plaque at the posterior aspect of the right carotid bifurcation sagittal image 45 with very minimal posterior plaque extending into the origin of the right ICA.. There is a slight overhanging area extending posteriorly beyond the plaque, sagittal image 43 I favor this is minimal overhanging beyond the minimal plaque rather than a posterior ulceration c . The left carotid shows similar pattern with minimal posterior plaque extending into the proximal left ICA and slight overhanging just beyond this. Again difficult to exclude mild ulceration but I favor this merely reflects a area just beyond the posterior plaque. Of these areas may benefit from follow-up CTAin future.. In either case this minimal plaque yields less than 15-20 percent narrowing at the origin of both right and left ICA Similar appearance is seen on the left but the. The Both vertebral arteries are are seen to the skull. Left vertebral as best visualized, widely patent and dominant larger than the smaller right vertebral artery.. Due to some motion artifact cannot visualize the origin of the right vertebral artery. A cannot exclude mild stenosis at its origin but is widely patent beyond this point up through hand above the base of the skull... Cervical spine. Degenerative changes of with generous anterior marginal fights C3/4-C4/5 C5/6 but a developing spondylosis and posterior disc/osteophyte features most notable at c C5/6 or there is [id number] central canal stenosis. Less pronounced degenerative features with only borderline-mild central canal stenosis C3/4, and C4/5. Soft tissues in neck. No mass lesions or significant findings otherwise at the neck. Apices lungs are clear ---------CT ANGIOGRAM HEAD: No aneurysm. No vascular malformation no abnormal areas of enhancement and overall satisfactory arterial enhancement pattern on this CT angiogram head Carotid siphons appears satisfactory [id number] appears satisfactory.. Is very small patent posterior communicating arteries on right and possibly left Posterior circulation. Modest size basilar artery is formed primarily from the left vertebral artery. The right vertebral quite a small attenuated but does continue to basilar artery as well the IMPRESSION: 1....CT angiogram Head.-no significant intracranial vascular findings but no abnormal areas of in has been intracranial 2..CT Angiogram Neck: No discrete flow-limiting stenosis A. Non stenotic plaque at origin of both right ICA and left ICA Minimal soft plaque at the posterior aspect of proximal ICA yields less than 15-20 percent stenosis at the origin of both right and left ICA... (Mild focal prominence of right and left ICA just beyond plaque I believe merely reflects the edge of the plaque and doubt ulceration but follow-up CTA in future may be of benefit) B..dominant left vertebral artery . Cannot visualize origin smaller the r
--- NOTE | 2020-05-25 14:34 | CT_ITS ---
Procedure: CT ANGIO HEAD Referring Doctor: Nomi James Patient Age:55Y CLINICAL HISTORY: stroke possible CVA left-sided weakness COMPARISON: CT CT HEAD/BRAIN WO CON from 05/25/[address] ANGIO NECK from 05/25/2020 TECHNIQUE: IV Contrast: 100ml Isovue 370 Axial images obtained with sagittal and coronal reformats. All CT scans at the facility use one or more dose reduction, viz: automated exposure control, ma/kV adjustment per patient size (including targeted exams where dose is matched to indication, i.e. head), or iterative reconstruction technique. FINDINGS: COMPARISON: CT CT ANGIO HEAD from 05/25/2020 TECHNIQUE: IV Contrast: 100ml Isovue 370 Axial images obtained with sagittal and coronal reformats. All CT scans at the facility use one or more dose reduction, viz: automated exposure control, ma/kV adjustment per patient size (including targeted exams where dose is matched to indication, i.e. head), or iterative reconstruction technique. FINDINGS: CT angiogram neck: Satisfactory appearance of great vessels arising from the aortic arch.. No stenosis or plaque at this level Both carotid arteries are widely patent to the base of the skull... Right carotid-very small calcified plaque at the posterior aspect of the right carotid bifurcation sagittal image 45; with minimal posterior soft plaque extending into the origin of the right ICA.. There is a slight overhanging area extending posteriorly just beyond the plaque, sagittal image 43-I favor this is minimal overhanging beyond this modest plaque (rather than a posterior ulceration) . In fact the left carotid shows similar pattern with minimal posterior plaque extending into the proximal left ICA and then slight overhanging just beyond this. (Again difficult to exclude mild ulceration but I favor this also merely reflects a area just beyond the posterior soft plaque). Both these areas may benefit from follow-up CTA in future.. In either case this minimal plaque yields less than 15-20 percent narrowing at the origin of both right and left ICA . Both vertebral arteries are are seen continuing through the neck to the base of skull. Left vertebral as best visualized, widely patent and dominant; left vertebral larger than the smaller right vertebral artery.. Due to some motion artifact cannot visualize the origin of the right vertebral artery. Thus cannot totally exclude mild stenosis at its origin but is widely patent beyond this point up through hand above the base of the skull... Cervical spine. Degenerative changes of with generous anterior marginalosteophytes C3/4-C4/5 C5/6. Developing spondylosis and posterior disc/osteophyte features most notable at c C5/6 where there is [id number] central canal stenosis. Less pronounced degenerative features with only borderline-mild central canal stenosis C3/4, and C4/5. Soft tissues in neck. No mass lesions or significant findings otherwise at the neck. Apices lungs are clear ---------CT ANGIOGRAM HEAD: No aneurysm. No vascular malformation no abnormal areas of enhancement and overall satisfactory arterial enhancement pattern on this CT angiogram head Carotid siphons appears satisfactory [id number] appears satisfactory.. Is very small patent posterior communicating arteries on right and possibly left Posterior circulation. Modest size basilar artery is formed primarily from the left vertebral artery. The right vertebral quite a small attenuated but does continue to basilar artery as well t. Dural venous sinuses unremarkable IMPRESSION: 1....CT ANGIOGRAM HEAD.-No Significant Intracranial Vascular Findings 2..CT ANGIOGRAM NECK: No Signifi
--- NOTE | 2020-05-25 14:53 | PC.NURSE ---
PT GOING UP FOR HER CT ANGIO'S
[2020-05-25 14:56] LABS: Coronavirus 19 IgG Antibody Negative (Negative); Coronavirus 19 IgM Antibody Negative (Negative)
--- NOTE | 2020-05-25 16:52 | PC.NURSE ---
Dr James spoke with [facility]roke team
--- NOTE | 2020-05-25 16:54 | PC.NURSE ---
automation sales manager MD for service was paged
--- NOTE | 2020-05-25 16:58 | PC.NURSE ---
Dr James speaking to Dr Pelaez.
--- NOTE | 2020-05-25 17:00 | PC.NURSE ---
PT UP TO BEDSIDE COMMODE WITH ASSIST PT UNSTEADY
[2020-05-25 17:34] LABS: Microscopic, Urine URINE MICROSCOPIC (MICROSCOPIC)
[2020-05-25 18:06] LABS: Appearance,Urine CLOUDY (Clear); Bilirubin,Urine Negative (Negative); Blood, Urine TRACE-I (Negative); Color,Urine YELLOW (Yellow); Glucose,Urine (UA) Negative (Negative); Ketones,Urine Negative (Negative); Leukocyte Esterase,Urine Negative (Negative); Nitrate,Urine POSITIVE (Negative); Protein,Urine 2+ (Negative); Urobilinogen,Urine 0.2 EU/dl (0.2)
--- NOTE | 2020-05-25 18:09 | PC.NURSE ---
REPORT CALLED TO JORGE L CERON
[2020-05-25 18:39] LABS: Bacteria,Urine 3+ /lpf
--- NOTE | 2020-05-25 19:25 | PC.NURSE ---
patient arrived to floor in stable condition. patient bp 175/85 titrate to keep systolic 180 o drip remains turned off will give report to oncoming shift. vegetable soup given to patient
--- NOTE | 2020-05-25 19:53 | P.CONPHA_ITS ---
[facility] Pharmacy VTE Monitoring - Patient Demographics Admission date: 05/25/20 Report Date: 05/25/20 Time: 19:53 Allergies/Adverse Reactions: Patient Allergies No Known Allergies Allergy (Verified 06/07/17 09:04) Height: 1.63 m Weight: 88.706 kg Patient Problems: Current Active Problems CVA (cerebral vascular accident) (Acute) Uncontrolled hypertension (Acute) - VTE Risk Labs: VTE Related Lab Results Hgb 17.9 g/dL (12.2-16.2) H 05/25/20 14:00 Hct 53.7 % (37.0-47.0) H 05/25/20 14:00 Plt Count 268 K/mm3 (142-424) 05/25/20 14:00 PT 11.3 seconds (9.4-11.8) 05/25/20 14:00 INR 1.02 (0.9-1.1) 05/25/20 14:00 BUN 18 mg/dl (7-17) H 05/25/20 14:00 Creatinine 1.00 mg/dl (0.52-1.04) 05/25/20 14:00 Estimated Creat Clear 54 mL/min (50-200) 05/25/20 14:00 Clinical Trial Participant: No - Prophylaxis VTE Prophylaxis Ordered?: Yes Types of VTE Prophylaxis: TEDS Knee High
[2020-05-26] VITALS (48 sets, daily range): BP systolic 123–217; BP diastolic 62–131; PULSE 54–87; RESP 16–24; TEMP 36.7–36.9; O2SAT 92–100; BMI 33.3
[2020-05-26 05:16] LABS: POC Glucose,Bedside 146 (70-110)
--- NOTE | 2020-05-26 06:58 | PC.NURSE ---
Titrated Nicardipine gtt per protocol to keep SBP < 180 Restarted @ 2.5mg/hr at 2043 on 05/25/2020 titrated up to 5mg/hr at 2145 on 05/25/2020 titrated down to 2.5mg/hr at 2230 on 05/25/2020 stopped at 2300 on 05/25/2020 Restarted again @ 2.5mg/hr at 0615 on 05/26/2020 to pt awake and SBP > 180.
--- NOTE | 2020-05-26 07:42 | CA_ITS ---
APPROVED REPORT EXAM: Comprehensive 2D, Doppler, and color-flow Echocardiogram Manager Of Administration: Giselle Mazariegos RT(R) Ht: 5 ft 4 in Wt: 214lbs BSA: 2.01 BP: 228/105 mmHg Indications: HTN, COPD, smoker, CVA 2D Dimensions LVOT 2.03 cm (M/F) 1.5-2.5 M-Mode Dimensions RVDd 2.36 cm (0.9-2.6) LA Diam 3.85 cm (1.9-4.0) LVDd 3.39 cm (3.5-5.7) Ao Diam 3.43 cm (2.0-3.7) LVDs 2.17 cm (3.5-5.7) IVSd 1.56 cm (0.6-1.1) PWd 0.99 cm (0.6-1.1) EF (Teich) 66.70% FS 36.00% EDV (Teich) 47.10 mL ESV (Teich) 15.70 mL LV Diastology E Decel Time 163.00 (160-240 msec) E/A Ratio 0.6 MED E' 3.30 (< 7 cm/sec) E'/MED E' Ratio 17.12 (>14) LAT E' 4.10 (<10 cm/sec) E/LAT E' Ratio 13.78 (>14) Aortic Valve AI PHT 642.00 ms Mitral Valve MV E Max Skyler. 57.00 (40-130 cm/s) MV A Velocity 93.00 (40-130 cm/s) E/A Ratio 0.61 MV Decel. Time 163.00 (160-240 ms) MV PHT 48.00 ms Left Ventricle Left atrium is mildly enlarged, left ventricle is normal size, mild concentric left ventricular hypertrophy, visually estimated ejection fraction 55% with no regional wall motion abnormality, grade 1 diastolic dysfunction seen with tissue Doppler evidence of raise left atrial pressure. Right Ventricle Right atrium and right ventricle are normal size and contractility. Aortic Valve Aortic valve is thickened and calcified without aortic stenosis, there is mild aortic insufficiency. Mitral Valve Mitral valve leaflets are minimally thickened, there is mild mitral regurgitation. Tricuspid Valve Tricuspid valve grossly normal, there is mild tricuspid regurgitation, tricuspid regurgitation jet velocity is inadequate for calculation of the right ventricular systolic pressure. Pulmonic Valve Pulmonic valve is poorly visualized. Great Vessels Aortic root is normal size. Pericardium No significant pericardial effusion noted. Conclusion 1. Mildly enlarged left atrium, normal left ventricular size, mild concentric left ventricular hypertrophy, visually estimated ejection fraction 55% with no regional wall motion abnormality, grade 1 diastolic dysfunction seen with tissue Doppler evidence of raise left atrial pressure. 2. Mild aortic, mild mitral and tricuspid regurgitation. 3. No significant pericardial effusion noted. Electronically signed by : Ambrosio Oconnor, 05/26/2020 18:03:23
--- NOTE | 2020-05-26 08:02 | PC.NURSE ---
Pt is A&Ox4 and has ambulated to the BR with staff and walker assist and tolerated fair d/t LLE weakness and pt feeling drunk . Cardene gtt titrated per protocol. 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 Pt reports weakness with fine motor skill with left hand. No drift and pt able to hold against pressure. No edema noted. Lungs CTA, SaO2 > 94% t/o shift. NSR, Sinus Chriss with PVCs on tele. Call light within reach.
--- NOTE | 2020-05-26 08:34 | HMH.HP ---
*Admission Date: 05/25/20 <Isis Guerra - 05/26/20 08:41> *Chief complaint: left sided weakness <Isis Guerra - 05/26/20 08:41> *History of present illness: Further to history obtained below by ANAYELI Basurto, patient tells me her symptoms actually started on the morning of 05/24/2020 with left-sided numbness. By yesterday morning the numbness persisted and she developed weakness in her arm and leg and therefore presented to the emergency room. <Kashif Pelaez - 05/26/20 10:31> Ms. Leonardo is a 55yo female who complains of left-sided numbness since yesterday morning at about 5 AM. Constant, has not gone away. She says it has been her left arm, leg, and trunk. She says however that she feels it starting to go up the left side of her neck and she is afraid it will affect her face as well, although at this point she does not have any facial numbness. No visual disturbance or speech disturbance. She feels weak on the left side. She says she has not been able to ambulate independently since onset. No previous similar symptoms. She is a smoker. She has hypertension and has been out of her medication for 6 months. She does not have a primary care provider. She has seen Dr. Cespedes here for cardiology. (above as per ER physician) She had a head CT which was unremarkable. She had a chest x-ray showing borderline cardiomegaly but nothing acute. She had a head CTA showing no significant intracranial vascular findings. She had a CT angiogram of the neck showing no significant flow-limiting stenosis. She was admitted for further evaluation and treatment for CVA. Patient states today she still has numbness and weakness of the left arm and left leg. She denies any other weakness. She denies any pain. She is trying to eat some breakfast this morning. <Isis Guerra - 05/26/20 08:41> [facility] History I have reviewed the patient's past medical history: Yes <Isis Guerra - 05/26/20 08:41> Medical History: Reports:: Chronic Obstructive Pulmonary Disease (COPD), Hypertension Denies:: Cancer, Diabetes Mellitus Type 1, Diabetes Mellitus Type 2, MRSA <Isis Guerra 05/26/20 08:41> *Have you ever received a pneumonia vaccine?: No <Isis Guerra 05/26/20 08:41> *Have you received a flu vaccine this season?: No <Isis Guerra 05/26/20 08:41> Other Surgeries: Yes: , Hysterectomy-Total <Isis Guerra 05/26/20 08:41> Amputation: No <Isis Guerra 05/26/20 08:41> - *Social History Smoking Status: Current every day smoker <Isis Guerra 05/26/20 08:41> Tobacco Type: cigarettes <Isis Guerra 05/26/20 08:41> # Packs/Day (cigarettes): 1 <Isis Guerra 05/26/20 08:41> Alcohol Intake: never <Isis Guerra 05/26/20 08:41> Alcohol Intake Frequency:: other <Isis Guerra 05/26/20 08:41> Substance Use Type: denies use <Isis Guerra 05/26/20 08:41> *Occupational Status:: employed <Isis Guerra 05/26/20 08:41> Housing: house <Isis Guerra 05/26/20 08:41> Household Members: significant other <Isis Guerra 05/26/20 08:41> *Travel in the last 8 weeks: None <Isis Guerra 05/26/20 08:41> Family Hx:: Coronary Artery Disease, Stroke <Isis Guerra 05/26/20 10:21> Review of Systems - Constitutional Reports weakness, Denies fever(s) <Isis Guerra 05/26/20 08:41> - Eyes Denies blurry vision, Denies double vision <Isis Guerra 05/26/20 08:41> - ENT Denies nasal congestion, Denies sore throat <Isis Guerra 05/26/20 08:41> - *Cardiovascular Denies chest pain, Denies shortness of breath <Isis Guerra 05/26/20 08:41> - *Respiratory Denies cough, Denies shortness of breath <Isis Guerra 05/26/20 08:41> - *Gastrointestinal Denies abdominal pain, Denies loose stools, Denies nausea, Denies vomiting <Isis Guerra 05/26/20 08:41> - *Genitourinary Denies difficulty urinating, Denies painful urination <Isis Guerra 05/26/20 08:41> - *Musculoskeletal Denies priscilla
--- NOTE | 2020-05-26 08:51 | CA_ITS ---
APPROVED REPORT Costume Design Teacher: Yessi Ferrari RVT Laterality: Bilateral Study Quality: Good Indications: cva,numbness lt side Risk Factors Hypertension: Doppler Spectral Velocity Analysis ECA (R) 110.10/16.00 cm/s ECA (L) 142.90/19.50 cm/s dICA (R) 68.40/11.80 cm/s dICA (L) 73.70/21.40 cm/s Nadine (R) 65.20/15.00 cm/s Nadine (L) 66.80/17.10 cm/s pICA (R) 61.00/11.80 cm/s pICA (L) 49.70/13.70 cm/s dCCA (R) 97.30/11.80 cm/s dCCA (L) 107.10/18.00 cm/s pCCA (R) 98.40/15.00 cm/s pCCA (L) 118.20/18.00 cm/s Vert (R) 20.20/6.70 cm/s Vert (L) 47.10/19.50 cm/s ICA/CCA 0.70 ICA/CCA 0.69 Findings Study suggests 20-49% stenosis of the right internal cartoid artery. Study suggests less than 20% stenosis of the left internal cartoid artery. Antegrade flow seen bilateral vertebral arteries. Conclusion Study suggests 20-49% stenosis of the right internal cartoid artery. Study suggests less than 20% stenosis of the left internal cartoid artery. Antegrade flow seen bilateral vertebral arteries. Electronically signed by : Nehemiah Decker MD 05/27/2020 09:00:23
--- NOTE | 2020-05-26 08:58 | PC.NURSE ---
Addendum entered by Esme Cervantes RN 05/26/20 09:56: Cardene titrated to 2.5 mg/hr @ this time Original Note: Cardene gtt increased to 5 mg/hr @ this time
--- NOTE | 2020-05-26 09:12 | HMH.CNCARD ---
History of Present Illness Consult date: 05/26/20 Requesting physician: Kashif Pelaez Consult reason: hypertension Chief complaint: CVA and Uncontrolled HTN Additional Medical History:: 1. CVA (05/26/2020) a. Numbness of left upper and lower extremities. 2. Uncontrolled hypertension (05/26/2020) a. Pt stopped taking her BP medications over 6 months ago. b. Non-compliant 3. Tobacco use 4. Chronic obstructive pulmonary disease. History of present illness: 55-year-old -[place] lady presented to [facility] ED with complaints of left upper and lower extremity numbness and tingling. Patient stated for a few days she had been having increasing numbness of the lower and upper extremities of the left side. Patient stated that she was trying to hold a cup in her left hand and the cup fell. Upon arrival to the ED patient noted to have extremely elevated BP (252/128). Patient was then started on a Nicardipine drip at 25mg/hr IV. Patient is responding to the drip. BP is improving. Patient stated she does have history of hypertension. Patient has been out of her medications for over 6 months. Patient is unable to tell exactly what medications that she was on. Patient denies chest pain, tightness or pressure. Patient denies shortness of breath. Patient is having some difficulty with fine motor movement. Patient is unsteady gait. Patient has no drooping of the mouth. No drooling noted. No swelling of the lower extremities noted. Patient states that she does have history of COPD. Patient has history of tobacco use. Patient stated she did undergo a left heart catheterization in 2018. ANGIOGRAPHIC RESULTS: 1. The left main artery normal 2. The left anterior descending artery mild luminal irregularities 3. The circumflex artery dominant mild luminal irregularities 4. The right coronary artery small nondominant mild luminal irregularities 5. The VOGT ventriculogram reveals hyperdynamic 80% 6. The left ventricular end-diastolic pressure 25 mmHg IMPRESSION: 1. Mild nonflow limiting coronary artery disease 2. Hyperdynamic ventricle consistent with hypertensive heart disease 3. Elevated LVEDP consistent with hypertensive heart disease PLAN: 1. Medical management Patient denies any follow-up with cardiology. Patient is noncompliant with medications. Initial EKG normal sinus rhythm with an incomplete left bundle branch block with a heart rate of 66 bpm. Creatinine 1.00 with BUN 18. Discussed plan of care with Dr. Cespedes. Will start to wean patient off the Nicardipine drip. We will start Norvasc 10 mg p.o. daily. Start Maxide 75/50 mg daily for better BP control. Will obtain echocardiogram to assess LV function and valve status. Also will obtain CNI due to left upper/lower extremity numbness. FINDINGS: CT angiogram neck: Satisfactory appearance of great vessels arising from the aortic arch.. No stenosis or plaque at this level Both carotid arteries are widely patent to the base of the skull... Right carotid-very small calcified plaque at the posterior aspect of the right carotid bifurcation sagittal image 45 with very minimal posterior plaque extending into the origin of the right ICA.. There is a slight overhanging area extending posteriorly beyond the plaque, sagittal image 43 I favor this is minimal overhanging beyond the minimal plaque rather than a posterior ulceration c . The left carotid shows similar pattern with minimal posterior plaque extending into the proximal left ICA and slight overhanging just beyond this. Again difficult to exclude mild ulceration but I favor this merely reflects a area just beyond the posterior plaque. Of these areas may benefit from follow-up CTAin future.. In either case this minimal plaque yields less than 15-20 percent narrowing at the origin of both right and left ICA Similar appearance is seen on the left but t
--- NOTE | 2020-05-26 09:20 | MR_ITS ---
PROCEDURE: MR HEAD/BRAIN WO/W CON Referring Doctor: Kashif Pelaez Patient Age:55Y CLINICAL INDICATION: Patient history left-sided weakness and numbness 2-3 days CVA numbness paresthesias weakness extremity; onset of symptoms a 2 ago. COMPARISON: CT CT ANGIO HEAD from 05/25/2020 TECHNIQUE: Multiplanar multi sequence imaging brain performed on 1.5 larissa MR. Precontrast images include: Axial T1, T2, FLAIR, of heme sensitive image sequence, ADC/diffusion, along with sagittal T2 and coronal FLAIR postcontrast images performed following 19 mL ProHance. Coronal and axial T1 imaging performed FINDINGS: Small 4 x 5 mm abnormal signal focus at the anterior right medulla, seen on axial images 7, sagittal 13,-signal pattern suggest a tiny subacute infarct (increased diffusion signal with decreased ADC signal) At the right cerebral hemisphere I see no of acute signal abnormalities to account for the current left-sided symptoms. Only question subtle vague tiny chronic small-vessel high-signal focus involving at external capsule FLAIR images axial 14 and coronal 11. Not convincing on final review At posterior left cerebral hemispheres there is increased signal in the deep white matter just superior to the atria of the left lateral ventricle reflecting some minor chronic small vessel deep white-matter ischemic gliotic changes. These are consistent with minimal chronic/old features based on signal pattern. The craniocervical junction appears satisfactory. I would incidentally note spinal stenosis at the cervical spine at C3/4 due to disc osteophyte complex most evident to the left. Only questionable mild spinal stenosis at C5/6 level. Post-contrast images show no abnormal areas of enhancement There is deviation nasal septum engorgement nasal turbinates bilaterally. IMPRESSION: 1. Small subacute infarct of medulla, at anterior right aspect medulla.. 2. No acute findings at the right cerebral hemisphere account for the patient's left-sided symptoms 3. Chronic small vessel deep white-matter ischemic changes most evident superior to the atria of left lateral ventricle with only questionable tiny vague high-signal white matter focus at external capsule right. Again these appear to be compatible with chronic small vessel ischemic changes 4. No mass lesion, no abnormal areas of enhancement, normal anatomy. 5. Incidental spinal stenosis C3/4-most pronounced to the left, due fall to disc osteophyte complex Dictated by: Nehemiah Decker MD 05/26/2020 17:03 Nehemiah Decker MD in [place] 05/26/2020 17:03
--- NOTE | 2020-05-26 10:08 | HMH.PTEV ---
Physical Therapy Evaluation Rehab PT IP Evaluation Start: 05/26/20 08:41 Freq: ONCE Status: Active Protocol: Document 05/26/20 10:04 MARIFER (Rec: 05/26/20 10:08 MARIFER [id number]) Subjective/History History History Ms. Leonardo is a 55yo female who complains of left-sided numbness since yesterday morning at about 5 AM. Constant, has not gone away. She says it has been her left arm, leg, and trunk. She says however that she feels it starting to go up the left side of her neck and she is afraid it will affect her face as well, although at this point she does not have any facial numbness. No visual disturbance or speech disturbance. She feels weak on the left side. She says she has not been able to ambulate independently since onset. No previous similar symptoms. She is a smoker. She has hypertension and has been out of her medication for 6 months. She does not have a primary care provider. She has seen Dr. Cespedes here for cardiology. Subjective Subjective Pt reports c/o feeling weak as a baby especially on her L side Rehab PT IP Eval Objective Appearance Patient Behavior Appropriate,Cooperative Patient Orientation Person,Place,Time Difficulty following instructions none Speech Pattern Clear,Appropriate Ambulation Patient Able to Ambulate Yes Ambulation Observation IP General Gait Pattern Observation Ataxic Gait,Shuffling Step Ambulation Distance (feet) 5 Ambulation Assistive Device None Ambulation Ability Contact Guard/Hand Hold Balance Ability to Arise Able, uses arms to help Sitting Balance Steady, safe Standing Balance Unsteady Dynamic Sitting Balance Ability Good Dynamic Standing Balance Ability Poor Transfers Bed Transfer Ability Independent,Supervision/Stand by Chair Transfer Ability Independent,Supervision/Stand by
--- NOTE | 2020-05-26 10:41 | PC.NURSE ---
Cardene off 1 hour after admin of PO meds per Pearl @ this time.
--- NOTE | 2020-05-26 10:59 | HMH.OTEV ---
OT Inpatient Evaluation Rehab OT IP Evaluation Start: 05/26/20 08:41 Freq: ONCE Status: Complete Protocol: Document 05/26/20 10:54 EDITH (Rec: 05/26/20 10:59 EDITH [id number]) Rehab OT IP Assessment Subjective History Ms. Leonardo is a 55yo female who complains of left-sided numbness since yesterday morning at about 5 AM. Constant, has not gone away. She says it has been her left arm, leg, and trunk. She says however that she feels it starting to go up the left side of her neck and she is afraid it will affect her face as well, although at this point she does not have any facial numbness. No visual disturbance or speech disturbance. She feels weak on the left side. She says she has not been able to ambulate independently since onset. No previous similar symptoms. She is a smoker. She has hypertension and has been out of her medication for 6 months . She does not have a primary care provider. She has seen Dr. Cespedes here for cardiology. Subjective I'm glad your here. I want to get up. Instructed Patient on proper hand/foot placement and proper placement of RW to ambulate within environment ~ 50ft. Patient exhibit moderate safety awareness deficits with RW, weakness and fatigue which increase fall risk at this time. Patient completed all transfers, ambulation and d/d footwear with Min A. Objective Patient Orientation Person,Place,Name,Age,Birthday ,Month,Year,Situation Upper Extremity Gross ROM WFL Transfer Training Sit/Stand Transfer,Sit/Stand/ Step Transfer,Sit/Stand/Pivot Transfer Chair Transfer Ability Minimal x 1 (25% as
--- NOTE | 2020-05-26 15:21 | PC.NURSE ---
Patient has been pleasant and cooperative this shift, MRI brain completed this shift, pt had shower and linen change, alert and oriented x4, PT has worked with patient today, left sided weakness noted, on RA, lungs cta, peripheral pulses intact, no edema noted, skin wdi, no s/s of distress noted, weaned from cardene drip, will continue to monitor for changes.
[2020-05-27] VITALS (11 sets, daily range): BP systolic 146–192; BP diastolic 80–100; PULSE 62–82; RESP 18–20; TEMP 36.1–36.9; O2SAT 95–98; BMI 33.5
[2020-05-27 06:36] LABS: Cholesterol 255 mg/dl (140-200); Triglycerides 154 mg/dl (30-150); VLDL Cholesterol 31 mg/dL (0-40)
[2020-05-27 06:37] LABS: Chol/HDL Ratio 6.7 (1-3.5); HDL Cholesterol 38 mg/dl (40-60)
[2020-05-27 06:47] LABS: Direct LDL Cholesterol 166.14 mg/dL (100-129)
--- NOTE | 2020-05-27 07:53 | PC.NURSE ---
pT IS a&oX4 AND HAS AMBULATED TO THE 2X THIS SHIFT AWITH WALKER AND STAFF SBA AND TOLERATED WELL. PT HAS DENIED ANY PAIN BUT HAS C/O NUMBNESS AND CONTINUED WEAKNESS TO LEFT LEG AND LEFT ARM. PT HAS FULL RANGE OF MOTION. 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 LUNGS CTA, ROOM AIR >94%. HTN CONTINUES, PT REFUSED NITRO PASTE. PT DENIES ANY DIZZINESS, HEADACHE, VISION CHANGES OR CHEST PAIN. REFUSED TEDS. NSR ON TELE. PORSCHE LIGHT WITHIN REACH AND PT CALLS OUT FOR ASSISTANCE.
--- NOTE | 2020-05-27 08:25 | HMH.ACPN2 ---
<Isis Guerra - Last Filed: 05/27/20 08:25> Internal Medicine - PN: Subj *Date: 05/27/20 *Time: 08:25 Interval history: Patient has increased weakness of the left arm and left leg today. She states she is very depressed with herself. She did sleep well and ate a good breakfast this morning. She was able to work with physical therapy yesterday. Exam Vital signs and Labs for Last 24 Hours: Temp Pulse Resp BP Pulse Ox 97.0 F L 62 20 171/92 H 97 05/27/20 07:51 05/27/20 06:00 05/27/20 06:00 05/27/20 06:00 05/27/20 06:00 Laboratory Results - last 24 hr 05/27/20 05:45: Triglycerides 154 H, Cholesterol 255 H, LDL Cholesterol Direct 166.14 H, VLDL Cholesterol 31, HDL Cholesterol 38 L, Cholesterol/HDL Ratio 6.7 H I & O for Last 24 hours: Intake & Output 05/24/20 05/25/20 05/26/20 05/27/20 11:59 11:59 11:59 11:59 Intake Total 220 / 220 960 / 960 Balance 220 / 220 960 / 960 Weight 195 lb 9.012 oz 196 lb 4 oz Microbiology Reports for the Last 24 Hours: Microbiology 05/25/20 17:25 Urine,Clean Catch Urine Culture - Preliminary NO GROWTH AFTER 24 HOURS Radiology Reports for the Last 24 Hours: Brain MRI 1. Small subacute infarct of medulla, at anterior right aspect medulla.. 2. No acute findings at the right cerebral hemisphere account for the patient's left-sided symptoms 3. Chronic small vessel deep white-matter ischemic changes most evident superior to the atria of left lateral ventricle with only questionable tiny vague high-signal white matter focus at external capsule right. Again these appear to be compatible with chronic small vessel ischemic changes 4. No mass lesion, no abnormal areas of enhancement, normal anatomy. 5. Incidental spinal stenosis C3/4-most pronounced to the left, due fall to disc osteophyte complex - Constitutional no acute distress - *Routine Respiratory Exam Present: CTA bilaterally - *Routine Cardiovascular Exam Present: RRR - *Routine Abdominal Exam Present: soft, normoactive bowel sounds. Absent: tenderness - *Routine Extremities Exam Absent: cyanosis, clubbing, edema - *Routine Skin Exam Present: warm. Absent: rash - *Routine Neurological Exam Present: alert, oriented X3, motor deficit (left arm and leg) Assessment and Plan (1) CVA (cerebral vascular accident) Status: Acute Qualifiers: CVA mechanism: unspecified Qualified Code(s): I63.9 - Cerebral infarction, unspecified Category: Medical Code(s): I63.9 - Cerebral infarction, unspecified (2) Uncontrolled hypertension Status: Acute Category: Medical Code(s): I10 - Essential (primary) hypertension (3) COPD (chronic obstructive pulmonary disease) Status: Chronic Qualifiers: COPD type: unspecified COPD Qualified Code(s): J44.9 - Chronic obstructive pulmonary disease, unspecified Category: Medical Code(s): J44.9 - Chronic obstructive pulmonary disease, unspecified (4) Hypertensive cardiomyopathy Status: Chronic Qualifiers: Heart failure presence: without heart failure Qualified Code(s): I11.9 - Hypertensive heart disease without heart failure; I43 - Cardiomyopathy in diseases classified elsewhere Category: Medical Code(s): I11.9 - Hypertensive heart disease without heart failure; I43 - Cardiomyopathy in diseases classified elsewhere (5) Tobacco use Status: Chronic Category: Social Hx Code(s): Z72.0 - Tobacco use - Assessment and plan all Dx Assessment and Plan for all problems:: We will continue physical therapy and Occupational Therapy. <Kashif Pelaez - Last Filed: 05/27/20 10:44> Internal Medicine - PN: Subj *Date: 05/27/20 *Time: 10:43 Exam Vital signs and Labs for Last 24 Hours: Temp Pulse Resp BP Pulse Ox 97.0 F L 78 18 188/93 H 98 05/27/20 07:51 05/27/20 08:00 05/27/20 08:00 05/27/20 08:00 05/27/20 08:00 Laboratory Results -
--- NOTE | 2020-05-27 12:04 | PC.NURSE ---
Dr. Cespedes at bedside @ 8300. Orders received 12.5 mg Coreg PO BID and for a renal US to be obtained. US notified of this by Nirav Mcwilliams
--- NOTE | 2020-05-27 12:40 | US_ITS ---
PROCEDURE: US KIDNEY Referring Doctor: Stephon Cespedes Patient Age:55Y CLINICAL INDICATION: Hypertension COMPARISON: The the no exams were available for comparison FINDINGS: The kidneys normal size well maintained bilaterally with no hydronephrosis. Upper normal echogenicity cortex may reflect some early medical renal disease but unimpressive/equivocal Cortex fairly well maintained bilateral on my review of images.. Color doppler survey imaging shows good overall/gross perfusion to both kidneys Right kidney slight longer but thinner: Cortex seems fairly well maintained on right 11.2 cm length x3 point 3 times 7.3 cm wide Left kidney: Cortex adequate maintained. 10 cm length x5 0.4 x 4 point 7 cm Cyst left kidney 1.4 cm cyst upper pole left kidney and 2.6 cm bilobed cyst lower pole left kidney IMPRESSION: No hydronephrosis nor mass Left kidney with 1.4 cm cyst upper pole and 2.6 cm bilobed cyst lower pole Appear to be benign cyst Good color Doppler survey of flow both kidneys with cortex fairly well maintained bilateral hand . Dictated by: Nehemiah Decker MD 05/27/2020 14:21 Nehemiah Decker MD in [place] 05/27/2020 14:21
--- NOTE | 2020-05-27 12:40 | PC.NURSE ---
Pt will need rolling walker, rather than a cane d/t weakness gait/mobility.
--- NOTE | 2020-05-27 12:57 | SW/DCPLANNER ---
Addendum entered by [facility] 06/03/20 10:38: This patient has returned my phone call stating that she would like to be set up with outpatient PT. I have transferred this patient to rehab/scheduling to set up outpatient PT appointment. Addendum entered by [facility] [place] 06/01/20 10:12: I have attempted to contact patient at this time. No answer but VM has been left regarding return to [facility] for outpatient PT. Addendum entered by [facility] 05/31/20 15:00: Regina with [facility] stated that they can not accept this patient due to already being discharged home. Katt with [facility] has also called back stating that at first of the year patient changed to a new health insurance: [facility] Medicaid . Katt did provide private pay cost at: snf $100/visit, PT: $110/visit and OT:$110/visit. I have informed this patient of situation and that her only option for PT would be returning as an outpatient. Patient is aware of situation and stated that she will need to speak with her family. I have also provided this patient with information regarding [facility]. Addendum entered by [facility] 05/31/20 13:32: Katt Phillips of stated that patient information/order has been reviewed and services will begin tomorrow for this patient. Addendum entered by [facility] 05/31/20 11:33: Beti from [facility] stated they can NOT meet this patients needs due to lack of staff. Patient information and order will be faxed to [facility]. Patient has also called expressing an interest in [facility]. I have explained to patient this can be a lengthy process but information will be faxed. I have faxed information to Regina at [facility]. Regina will follow up with me once information is reviewed. Addendum entered by [facility] 05/31/20 10:03: Patient information has been faxed to [facility] for home health service. I will follow up with [facility] once patient information is reviewed. Patient discharged home on 05/28/20. Original Note: I have spoke with this patient regarding discharge plans. I explained discharge options: placement vs home health vs outpatient rehab. Patient resides at home with her boyfriend and daughter. After a lengthy discussion regarding discharge plans patient stated that she prefer to discharge home with home health services. Patient did not have a preference as to which agency she wanted to use. Patient also stated that she will need a rolling walker for home. Patient information and order has been faxed to [facility] for a rolling walker: Nupur confirmed patient information has been reviewed and rolling walker will be delivered to patients room. Patient could discharge over the weekend.
--- NOTE | 2020-05-27 13:54 | PC.NURSE ---
1334 - Report given to Kathy MatamorosRN
[2020-05-28] VITALS: BP 143/76; PULSE 65; PULSE 70; RESP 16; TEMP 36.4; O2SAT 95
[2020-05-28 04:00] VITALS: BP 132/80; PULSE 60; RESP 16; TEMP 36.6; O2SAT 95
--- NOTE | 2020-05-28 04:03 | PC.NURSE ---
PT ALERT AND ORIENTED X4,PT STILL C/O OF NUMBNESS ON LEFT SIDE NO LOIN PULLER WITH LEFT HAND ,LUNGS CLEAR,RESP.EVEN AND UNLABORED,POSITIVE BOWEL SOUNDS X 4 QUADS,PT HAS DENIED ANY PAIN ALL NIGHT,PT HAS BEEN UP TO BATHROOM WITH ASSSIT X1,PT USES A WALKER.NSR ON CARDIAC TR
--- NOTE | 2020-05-28 04:54 | PC.NURSE ---
TRANSFERED PT TO ROOM 212 PER BED R/T THE NEED FOR THE STEP DOWN BED IN 216.PT BELONGINGS TAKEN TOO..PORTABLE BOX MEDICAL STAFF CREDENTIALING COORDINATOR PLACED ON PT.PT TOLERATED WELL,NO NEEDS OR CONCERNS VOICED
[2020-05-28 05:00] VITALS: BMI 33.7
[2020-05-28 08:00] VITALS: BP 145/95; PULSE 65; PULSE 80; RESP 16; TEMP 36.7; O2SAT 96
--- NOTE | 2020-05-28 10:37 | HMH.ACPN2 ---
Internal Medicine - PN: Subj *Date: 05/28/20 *Time: 10:37 Interval history: She rested well last night. She feels that her arm strength is slightly better this morning. Leg strength has improved and she has been able to ambulate with a rolling walker. Exam Vital signs and Labs for Last 24 Hours: Temp Pulse Resp BP Pulse Ox 98.0 F 65 16 145/95 H 96 05/28/20 08:00 05/28/20 08:00 05/28/20 08:00 05/28/20 08:00 05/28/20 08:00 I & O for Last 24 hours: Intake & Output 05/25/20 05/26/20 05/27/20 05/28/20 11:59 11:59 11:59 11:59 Intake Total 220 / 220 960 / 960 960 / 960 Balance 220 / 220 960 / 960 960 / 960 Weight 195 lb 9.012 oz 196 lb 4 oz 197 lb 11.2 oz Microbiology Reports for the Last 24 Hours: Microbiology 05/25/20 17:25 Urine,Clean Catch Urine Culture - Final Multiple organisms, suggests contamination. Assessment and Plan (1) CVA (cerebral vascular accident) Status: Acute Qualifiers: CVA mechanism: unspecified Qualified Code(s): I63.9 - Cerebral infarction, unspecified Category: Medical Code(s): I63.9 - Cerebral infarction, unspecified (2) Uncontrolled hypertension Status: Acute Category: Medical Code(s): I10 - Essential (primary) hypertension (3) COPD (chronic obstructive pulmonary disease) Status: Chronic Qualifiers: COPD type: unspecified COPD Qualified Code(s): J44.9 - Chronic obstructive pulmonary disease, unspecified Category: Medical Code(s): J44.9 - Chronic obstructive pulmonary disease, unspecified (4) Hypertensive cardiomyopathy Status: Chronic Qualifiers: Heart failure presence: without heart failure Qualified Code(s): I11.9 - Hypertensive heart disease without heart failure; I43 - Cardiomyopathy in diseases classified elsewhere Category: Medical Code(s): I11.9 - Hypertensive heart disease without heart failure; I43 - Cardiomyopathy in diseases classified elsewhere (5) Tobacco use Status: Chronic Category: Social Hx Code(s): Z72.0 - Tobacco use - Assessment and plan all Dx Assessment and Plan for all problems:: Blood pressure has improved but not yet normal. She still has significant weakness and disability with functioning of her left arm. She has been able to ambulate with a rolling walker. She would benefit from rehab services but prefers going home with home health rather than being transferred to acute rehab facility. I have stressed the importance of medication compliance. We will plan to arrange outpatient neurology consultation and she will follow-up in office for recheck in 2 weeks.
[2020-05-28 12:00] VITALS: BP 130/72; PULSE 60; PULSE 70; RESP 17; TEMP 36.6; O2SAT 98
--- NOTE | 2020-05-28 14:39 | PC.NURSE ---
THIS RN PROVIDED D/C INSTRUCTIONS TO PATIENT AND A FAMILY MEMBER OVER THE PHONE. THIS RN INSTRUCTED PATIENT TO HAVE PRESCRIPTIONS FILLED AND PROVIDED SCRIPTS. PATIENT AND FAMILY MEMBER VERBALIZED AN UNDERSTANDING. THIS RN PROVIDED EDUCATION ON EACH MEDICATION. THIS RN PROVIDED D/C INSTRUCTIONS FOR CARDIOMYOPATHY .NO OTHER CONCERNS.
--- NOTE | 2020-05-30 15:22 | HMH.DCSUM ---
General - General Admission date:: 05/25/20 <Kashif Pelaez - 06/28/20 15:32> 05/25/20 <Isis Guerra - 05/30/20 15:29> Discharge date: 05/28/20 <Isis Guerra - 05/30/20 15:29> HPI HPI: Ms. Leonardo is a 55yo female who complains of left-sided numbness since yesterday morning at about 5 AM. Constant, has not gone away. She says it has been her left arm, leg, and trunk. She says however that she feels it starting to go up the left side of her neck and she is afraid it will affect her face as well, although at this point she does not have any facial numbness. No visual disturbance or speech disturbance. She feels weak on the left side. She says she has not been able to ambulate independently since onset. No previous similar symptoms. She is a smoker. She has hypertension and has been out of her medication for 6 months. She does not have a primary care provider. She has seen Dr. Cespedes here for cardiology. (above as per ER physician) She had a head CT which was unremarkable. She had a chest x-ray showing borderline cardiomegaly but nothing acute. She had a head CTA showing no significant intracranial vascular findings. She had a CT angiogram of the neck showing no significant flow-limiting stenosis. She was admitted for further evaluation and treatment for CVA. Patient states today she still has numbness and weakness of the left arm and left leg. She denies any other weakness. She denies any pain. She is trying to eat some breakfast this morning. Further to history obtained below by ANAYELI Basurto, patient tells me her symptoms actually started on the morning of 05/24/2020 with left-sided numbness. By yesterday morning the numbness persisted and she developed weakness in her arm and leg and therefore presented to the emergency room. <Isis Guerra - 05/30/20 15:29> Hospital Course Hospital Course: The patient's head CT showed nothing acute. Her chest x-ray showed nothing acute other than borderline cardiomegaly. She had a head CTA which showed no significant intracranial vascular findings. She had a neck CTA showing no discrete flow-limiting stenosis. She was started on a nicardipine drip for blood pressure control as well as 81 mg of aspirin. PT and OT were ordered and an MRI was ordered of her brain. She had a carotid duplex showing 20 to 49% stenosis on the right and 20% stenosis on the left. Her brain MRI showed a small subacute infarct of the medulla. Cardiology was consulted due to her elevated blood pressure along with her CVA. They weaned her off the nicardipine and started her on Norvasc 10 mg daily as well as Maxide 75 mg / 20 mg for better blood pressure control. They ordered an echo. Patient's echo showed an EF of 55% with grade 1 diastolic dysfunction. They also ordered a renal ultrasound which showed no hydronephrosis or mass. There was good Doppler survey of flow to both kidneys. Patient was able to ambulate with a rolling walker. Her blood pressure did improve but did not normalize. She still had significant weakness and disability with functioning of her left arm. It was felt she would benefit from rehab services but she preferred to go home with home health rather than being transferred to an acute rehab facility. Dr. Pelaez stressed the importance of medication compliance and arranged outpatient neurology consultation as well as a follow-up in his office in 2 weeks. <Isis Guerra - 05/30/20 15:29> Objective Vital signs: Temp Pulse Resp BP Pulse Ox 97.8 F 70 17 130/72 98 05/28/20 12:00 05/28/20 12:00 05/28/20 12:05/28/20 12:00 05/28/20 12:00 <Kashif Pelaez - 06/28/20 15:32> Temp Pulse Resp BP Pulse Ox 97.8 F 70 17 130/72 98 05/28/20 12:00 05/28/20 12:00 05/28/20 12:00 05/28/20 12:00 05/28/20 12:00 <Isis Guerra - 05/30/20 15:29> Narrative: - Constitutional no acute distress - *Routine Respiratory Exam
== END 2020-05-28 12:30 | disposition home health service (06) | DRG 65 ==
LOC: ER 17:16 → 2ND 05-26 06:31
PROVIDERS: Physician Assistant; Admitting Provider Family Medicine; Emergency Provider Emergency Medicine; Visit Provider Family Medicine
DX: I61.8 Other nontraumatic intracerebral hemorrhage (principal); G81.94 Hemiplegia, unspecified affecting left nondominant side; I27.0 Primary pulmonary hypertension; I43 Cardiomyopathy in diseases classified elsewhere; J44.9 Chronic obstructive pulmonary disease, unspecified; Z72.0 Tobacco use; Z79.899 Other long term (current) drug therapy
CPT/HCPCS: 36415; 70450; 70496; 70498; 70553; 71045; 76770; 80053; 80061; 81001; 82962; 85025; 85610; 86328; 87086; 93005; 93306; 93880; 96365; 97110; 97116; 97165; 99284; A9576; Q9967

== ENCOUNTER 2023-09-05 15:14 | Inpatient (IN) | payer SELFPAY ==
[2023-09-05] VITALS (26 sets, daily range): BP systolic 147–223; BP diastolic 77–124; PULSE 81–100; RESP 18–30; TEMP 36.8–37.1; O2SAT 92–100; BMI 37.4; BMI 36.7
--- NOTE | 2023-09-05 15:23 | ECG_ITS ---
APPROVED REPORT Exam: Resting ECG HR:97 bpm ECG Measurements Heart Rate 97 AXES FL 191 P 62 QRSd 102 QRS -25 QT 380 T 105 QTc 435 Conclusion SINUS RHYTHM POSSIBLE LEFT ATRIAL ENLARGEMENT [-0.1mV P-WAVE IN V1/V2] INFERIOR MYOCARDIAL INFARCTION , PROBABLY OLD [40+ ms Q WAVE AND/OR ST/T ABNORMALITY IN II/aVF] ANTEROSEPTAL MYOCARDIAL INFARCTION , OF INDETERMINATE AGE [40+ ms Q WAVE IN V1-V4] ABNORMAL ECG Electronically signed by : CHANDRIKA TOSCANO, 09/05/2023 23:10:40
--- NOTE | 2023-09-05 15:27 | ED_ITS ---
<Statement entered by Tim Park MD - 09/05/23 18:42> I was consulted by the NOELLE, and we discussed the complexity of the problems being addressed. I approved the treatment and management plan for this patient's care in the emergency department, thus performing a substantive portion of the medical decision making. Tim Park MD Discharge Plan Disposition Patient Disposition: Admitted Condition: Critical Prescriptions Prescriptions: No Action No Known Home Medications Referrals Follow up/Referrals: Provider,Referral, MD [Primary Care Provider] - See instructions Clinical Impressions Clinical Impression: Hypertensive emergency, Acute renal failure, Acute hypoxemic respiratory failure Acute CHF (congestive heart failure) Qualifiers: Heart failure type: unspecified Qualified Code(s): I50.9 - Heart failure, unspecified Discharge ED Provider: Tim Park [facility] <ANAYELI Cartagena - Last Filed: 09/05/23 16:58> General Chief Complaint: Recheck/Abnormal Lab/Rx Stated Complaint: HBP Time Seen by Provider: 09/05/23 15:17 History of Present Illness HPI narrative: Patient presents from primary care office for evaluation of hypertensive emergency and chest pain. Patient is na?ve to the healthcare system and is on no medications. Socially she has no insurance that she is not been plugged in to the healthcare system. Family member at the bedside states that she has been having worsening dyspnea for the last 2 to 3 months and is now current dyspneic even at rest. Patient cannot lie flat and has to sleep sitting up. She began having chest pain radiating up into her neck today and went to her PCP where she was noted to be significantly hypertensive. She denies fever chills hemoptysis hematochezia melena she is nauseated but no vomiting diarrhea. Related Data Home Medications Medication Instructions Recorded Confirmed No Known Home Medications 09/05/23 09/05/23 Allergies Allergy/AdvReac Type Severity Reaction Status Date / Time No Known Allergies Allergy Verified 09/05/23 14:40 PFSH <ANAYELI Cartagena - Last Filed: 09/05/23 16:58> [facility] Disclaimer: The information contained in this section may have been updated after the patient was seen, as this information can be updated by other users. Medical History Tobacco use Acute coronary syndrome Hypertensive emergency Hypertensive cardiomyopathy COPD (chronic obstructive pulmonary disease) CVA (cerebral vascular accident) Uncontrolled hypertension Constipation Surgical History H/O: hysterectomy History of Family History Other No significant family history Social History Smoking Status: Former smoker tobacco type: cigarettes packs per day: 1 alcohol intake: never substance use type: former substance user and marijuana current occupational status: other Travel in the last 8 weeks: None household members: significant other and children housing: house caffeine: Yes <ANAYELI Cartagena - Last Filed: 09/05/23 16:58> ROS Obtained: Yes Systems reviewed as appropriate & no additional complaints except as documented Physical Exam <ANAYELI Cartagena - Last Filed: 09/05/23 16:58> General General appearance: alert, in no apparent distress and in distress Head Head exam: atraumatic and normal inspection Eye Eye exam: Present normal appearance, EOMI and conjunctival redness ENT ENT exam: Present normal exam, normal oropharynx and mucous membranes moist Neck Neck exam: Present normal inspection, full ROM, trachea midline and other (Positive JVD); Absent lymphadenopathy Chest Chest inspection: Present normal inspection and symmetric chest wall rise; Absent tenderness Respiratory Respiratory exam: Present respiratory distress and other (Patient has increased work of breathing and has significantly diminished breath sounds in the right base and some rales diffusely); Absent accessory muscle use Cardiovascular Cardiovascular exam: Present regular rate, normal rhythm, normal heart sounds, +S1 and +S2 Abdominal Exam Abdominal exam: Present soft and normal bowel sounds; Absent tenderness Extremities Exam Extremities exam: Present normal inspection, full ROM and edema (3+ pitting bilateral lower extremities) Back Exam Back exam: Present normal inspection and full ROM Neurological Exam Neurological exam: Present alert, oriented X3 and CN II-XII intact Psychiatric Psychiatric exam: Present normal affect and anxious Skin Skin exam: Present warm, dry, intact and normal color HEART Score <ANAYELI Cartagena - Last Filed: 09/05/23 16:58> HEART Score HEART Score assessment performed?: Yes History (anamnesis): Moderately suspicious ECG: Non-specific disturbance Age: 45-65 years Risk factors: Atherosclerosis history Troponin: 1-3x normal limit HEART Score: 6 Critical Care <ANAYELI Cartagena - Last Filed: 09/05/23 16:58> Critical Care Time Critical Care Time: Yes Attestation: On 09/05/23, the high probability of a clinically significant, sudden or life threatening deterioration of the following system(s) required my full and direct attention, intervention and personal management. The time I documented below is in addition to time spent performing reported procedures but includes the following listed in this critical care notation. Total Time Total Critical Care Time: 30 Medical Decision Making <ANAYELI Cartagena - Last Filed: 09/05/23 16:58> Medical Records Medical records reviewed: Yes I reviewed the patient's medical records. Mike Inquiry Pt receiving controlled substance: No Vital Signs Vital Signs: 09/05/23 15:16 09/05/23 15:34 09/05/23 15:53 Temperature 98.6 F Temperature Source Oral Pulse Rate 100 H 95 H Pulse Rate [Right Radial] 93 H Respiratory Rate 20 23 22 Blood Pressure 207/103 H Blood Pressure [Right Arm] 223/108 H Blood Pressure Mean [Right Arm] 146 Blood Pressure Source [Right Arm] Automatic Cuff Blood Pressure Position [Right Arm] Supine 02 Sat by Pulse Oximetry 97 99 97 Oxygen Delivery Method Nasal Cannula Room Air Oxygen Flow Rate (LPM) 09/05/23 16:04 09/05/23 16:05 09/05/23 16:14 Temperature Temperature Source Pulse Rate 90 86 98 H Pulse Rate [Right Radial] Respiratory Rate 23 24 24 Blood Pressure 203/113 H 199/106 H 222/123 H Blood Pressure [Right Arm] Blood Pressure Mean [Right Arm] Blood Pressure Source [Right Arm] Blood Pressure Position [Right Arm] 02 Sat by Pulse Oximetry 99 98 95 Oxygen Delivery Method Room Air Room Air Nasal Cannula Oxygen Flow Rate (LPM) 2 09/05/23 16:16 09/05/23 16:21 09/05/23 16:26 Temperature Temperature Source Pulse Rate 93 H 89 92 H Pulse Rate [Right Radial] Respiratory Rate 23 19 30 H Blood Pressure 210/106 H 213/114 H 210/110 H Blood Pressure [Right Arm] Blood Pressure Mean [Right Arm] Blood Pressure Source [Right Arm] Blood Pressure Position [Right Arm] 02 Sat by Pulse Oximetry 100 100 97 Oxygen Delivery Method Nasal Cannula Nasal Cannula Nasal Cannula Oxygen Flow Rate (LPM) 2 2 2 09/05/23 16:36 Temperature Temperature Source Pulse Rate 88 Pulse Rate [Right Radial] Respiratory Rate 22 Blood Pressure 147/124 H Blood Pressure [Right Arm] Blood Pressure Mean [Right Arm] Blood Pressure Source [Right Arm] Blood Pressure Position [Right Arm] 02 Sat by Pulse Oximetry 99 Oxygen Delivery Method Nasal Cannula Oxygen Flow Rate (LPM) 2 Lab Data Lab results reviewed: Yes I reviewed the patient's lab results. Labs: Lab Results 09/05/23 15:40: WBC 6.5, RBC 4.84, Hgb 14.2, Hct 46.3, MCV 95.6, MCH 29.3, MCHC 30.6 L, RDW 14.5, Plt Count 209, MPV 7.6, Neut % (Auto) 66.6, Lymph % (Auto) 21.0, Garrard % (Auto) 5.5, Eos % (Auto) 3.4, Baso % (Auto) 3.6 H, Neut # (Auto) 4.3, Lymph # (Auto) 1.4, [place]ard # (Auto) 0.4, Eos # (Auto) 0.2, Baso # (Auto) 0.2, PT 11.4, INR 1.06, D-Dimer 0.58 H, Sodium 142, Potassium 3.4 L, Chloride 105, C arbon Dioxide 33 H, Anion Gap 7.4, BUN 24 H, Creatinine 1.40 H, Estimated Creat Clear 68, Estimated GFR 38 L, Est GFR ( Amer) 47 L, Glucose 183 H, Calcium 9.1, Magnesium 2.1, Total Bilirubin 0.7, AST 35, ALT 25, Alkaline Phosphatase 135 H, Troponin I 0.02, NT-Pro-B Natriuret Pep 5320 H, Total Protein 6.8 D, Albumin 3.6, Globulin 3.2, Albumin/Globulin Ratio 1.1, Procalcitonin 0.074, Urine Color Yellow, Urine Appearance Clear, Urine pH 6.5, Ur Specific [place] 1.025, Urine Protein 2+, Urine Glucose (UA) Trace, Urine Ketones Negative, Urine Blood 1+, Urine Nitrate Negative, Urine Bilirubin Negative, Urine Urobilinogen 1.0, Ur Leukocyte Esterase Negative, Urine RBC None, Urine WBC Occasional, Ur Squamous Epith Cells 3-5, Urine Bacteria Trace, SARS-CoV-2 (PCR) Not detected, Influenza A Untype (PCR) Not detected, Influenza Type B (PCR) Not detected 09/05/23 15:58: Lactate 1.6 09/05/23 15:40 09/05/23 15:40 Response Orders (Tests/Meds): ED MEDICATIONS Generic Name Dose Route Start Last Admin Trade Name Fremaria a PRN Reason Stop Dose Admin Sodium Nitroprusside 50 mg/ 252 mls @ 8.971 mls/hr 09/05/23 16:45 Dextrose IV 10/05/23 16:44 .Q24H ERICK Protocol 0.3 MCG/KG/MIN Nitroglycerin 0.4 mg 09/05/23 15:56 09/05/23 15:57 Nitroglycerin 0.4mg Sl Tablet SL 10/05/23 15:55 0.4 mg Q5MINP PRN Administration Chest Pain Sodium Chloride 10 ml 09/05/23 15:44 Sodium Chloride 0.9% 10ml Flush Syringe IV 10/05/23 15:43 NEEDED PRN Maintain IV Site Sodium Chloride 10 ml 09/05/23 15:58 Sodium Chloride 0.9% 10ml Flush Syringe IV 10/05/23 15:57 NEEDED PRN Maintain IV Site Discontinued Medications Generic Name Dose Route Start Last Admin Trade Name Paul PRN Reason Stop Dose Admin Albuterol/Ipratropium 3 ml 09/05/23 15:51 09/05/23 16:09 Ipratropium/Albuterol 3 Ml Neb IH 09/05/23 15:52 3 ml ONCE ONE Administration Furosemide 80 mg 09/05/23 15:33 09/05/23 15:48 Furosemide 40mg/4ml Vial IV 09/05/23 15:34 80 mg ONCE ONE Administration Nitroglycerin/Dextrose 250 mls @ 1.5 mls/hr 09/05/23 16:00 09/05/23 16:05 Nitroglycerin 50mg/250ml D5w IV 10/05/23 15:59 10 mcg/min .Q24H ERICK 3 mls/hr Titration Protocol 5 MCG/MIN ORDERS Category Date Time Status Chest XR -- portable [XR chest portable] Stat Exams 09/05/23 15:33 Taken POCUS Point of Care (ER Only) Stat Exams 09/05/23 15:36 Completed BNP [NT Pro Brain Natriuretic Pep.] Stat Lab 09/05/23 15:40 Results CBC w/Auto Diff [Complete Blood Count Auto Diff] Stat Lab 09/05/23 15:40 Completed CMP [Comprehensive Metabolic Panel] Stat Lab 09/05/23 15:40 Results D-Dimer Stat Lab 09/05/23 15:40 Completed INR [Prothrombin Time INR] Stat Lab 09/05/23 15:40 Completed Lactic Acid Stat Lab 09/05/23 15:58 Completed Magnesium Stat Lab 09/05/23 15:40 Results Procalcitonin Stat Lab 09/05/23 15:40 Results Rapid PCR Covid and Flu A/B Stat Lab 09/05/23 15:40 Completed Trop I [Troponin I] Stat Lab 09/05/23 15:40 Results Troponin I Q3H Lab 09/05/23 18:45 Ordered Troponin I Q3H Lab 09/05/23 21:45 Ordered UA [Urinalysis and Microscopic] Stat Lab 09/05/23 15:40 Results MDM Narrative Medical Decision Narrative: In summary patient is a 58-year-old female who presents to the emergency department for evaluation of chest pain and hypertensive emergency. Patient is significantly hypertensive with a blood pressure of 223/108 with a heart rate of 93 satting at 97% on 2 L by nasal cannula afebrile breathing at 20 times a minute with increased work of breathing and afebrile. . Physical exam is remarkable for appearing to be in respiratory distress along with bilateral 3+ pitting edema, diminished breath sounds primarily in the right base with end expiratory rales with no carotid bruits heard.. Differential diagnosis includes CHF versus renal failure versus ACS versus pleural effusion etc. Initial workup will be conducted with EKG hematologic labs plain film chest x-ray. Initial interventions include breathing treatment and Lasix IV push, nitroglycerin drip. Initial workup reviewed by me showed an elevated NT proBNP, elevated creatinine and decreased GFR, troponin of 0.02, and my informal interpretation of her plain film chest x-ray shows cardiomegaly with bilateral pulmonary edema and pleural effusions right greater than left.. Upon repeat evaluation patient has already started to diurese and subjectively feels like she is breathing better.. Given this I discussed patient management with Dr. Cespedes cardiology. He recommended changing from a nitroglycerin drip to nipride. At that point I had a discussion about patient management with the hospitalist who has agreed to admit. <Tim Park MD - Last Filed: 09/05/23 15:55> Vital Signs Vital Signs: 09/05/23 15:16 09/05/23 15:34 09/05/23 15:53 Temperature 98.6 F Temperature Source Oral Pulse Rate 100 H 95 H Pulse Rate [Right Radial] 93 H Respiratory Rate 20 23 22 Blood Pressure 207/103 H Blood Pressure [Right Arm] 223/108 H Blood Pressure Mean [Right Arm] 146 Blood Pressure Source [Right Arm] Automatic Cuff Blood Pressure Position [Right Arm] Supine 02 Sat by Pulse Oximetry 97 99 97 Oxygen Delivery Method Nasal Cannula Room Air Oxygen Flow Rate (LPM) 09/05/23 16:04 09/05/23 16:05 09/05/23 16:14 Temperature Temperature Source Pulse Rate 90 86 98 H Pulse Rate [Right Radial] Respiratory Rate 23 24 24 Blood Pressure 203/113 H 199/106 H 222/123 H Blood Pressure [Right Arm] Blood Pressure Mean [Right Arm] Blood Pressure Source [Right Arm] Blood Pressure Position [Right Arm] 02 Sat by Pulse Oximetry 99 98 95 Oxygen Delivery Method Room Air Room Air Nasal Cannula Oxygen Flow Rate (LPM) 2 09/05/23 16:16 09/05/23 16:21 09/05/23 16:26 Temperature Temperature Source Pulse Rate 93 H 89 92 H Pulse Rate [Right Radial] Respiratory Rate 23 19 30 H Blood Pressure 210/106 H 213/114 H 210/110 H Blood Pressure [Right Arm] Blood Pressure Mean [Right Arm] Blood Pressure Source [Right Arm] Blood Pressure Position [Right Arm] 02 Sat by Pulse Oximetry 100 100 97 Oxygen Delivery Method Nasal Cannula Nasal Cannula Nasal Cannula Oxygen Flow Rate (LPM) 2 2 2 09/05/23 16:36 Temperature Temperature Source Pulse Rate 88 Pulse Rate [Right Radial] Respiratory Rate 22 Blood Pressure 147/124 H Blood Pressure [Right Arm] Blood Pressure Mean [Right Arm] Blood Pressure Source [Right Arm] Blood Pressure Position [Right Arm] 02 Sat by Pulse Oximetry 99 Oxygen Delivery Method Nasal Cannula Oxygen Flow Rate (LPM) 2 Lab Data Labs: Lab Results 09/05/23 15:40: WBC 6.5, RBC 4.84, Hgb 14.2, Hct 46.3, MCV 95.6, MCH 29.3, MCHC 30.6 L, RDW 14.5, Plt Count 209, MPV 7.6, Neut % (Auto) 66.6, Lymph % (Auto) 21.0, [place]ard % (Auto) 5.5, Eos % (Auto) 3.4, Baso % (Auto) 3.6 H, Neut # (Auto) 4.3, Lymph # (Auto) 1.4, [place] # (Auto) 0.4, Eos # (Auto) 0.2, Baso # (Auto) 0.2, PT 11.4, INR 1.06, D-Dimer 0.58 H, Sodium 142, Potassium 3.4 L, Chloride 105, C arbon Dioxide 33 H, Anion Gap 7.4, BUN 24 H, Creatinine 1.40 H, Estimated Creat Clear 68, Estimated GFR 38 L, Est GFR ( Amer) 47 L, Glucose 183 H, Calcium 9.1, Magnesium 2.1, Total Bilirubin 0.7, AST 35, ALT 25, Alkaline Phosphatase 135 H, Troponin I 0.02, NT-Pro-B Natriuret Pep 5320 H, Total Protein 6.8 D, Albumin 3.6, Globulin 3.2, Albumin/Globulin Ratio 1.1, Procalcitonin 0.074, Urine Color Yellow, Urine Appearance Clear, Urine pH 6.5, Ur Specific [place] 1.025, Urine Protein 2+, Urine Glucose (UA) Trace, Urine Ketones Negative, Urine Blood 1+, Urine Nitrate Negative, Urine Bilirubin Negative, Urine Urobilinogen 1.0, Ur Leukocyte Esterase Negative, Urine RBC None, Urine WBC Occasional, Ur Squamous Epith Cells 3-5, Urine Bacteria Trace, SARS-CoV-2 (PCR) Not detected, Influenza A Untype (PCR) Not detected, Influenza Type B (PCR) Not detected 09/05/23 15:58: Lactate 1.6 Response Orders (Tests/Meds): ED MEDICATIONS Generic Name Dose Route Start Last Admin Trade Name Freq PRN Reason Stop Dose Admin Sodium Nitroprusside 50 mg/ 252 mls @ 8.971 mls/hr 09/05/23 16:45 Dextrose IV 10/05/23 16:44 .Q24H ERICK Protocol 0.3 MCG/KG/MIN Nitroglycerin 0.4 mg 09/05/23 15:56 09/05/23 15:57 Nitroglycerin 0.4mg Sl Tablet SL 10/05/23 15:55 0.4 mg Q5MINP PRN Administration Chest Pain Sodium Chloride 10 ml 09/05/23 15:44 Sodium Chloride 0.9% 10ml Flush Syringe IV 10/05/23 15:43 NEEDED PRN Maintain IV Site Sodium Chloride 10 ml 09/05/23 15:58 Sodium Chloride 0.9% 10ml Flush Syringe IV 10/05/23 15:57 NEEDED PRN Maintain IV Site Discontinued Medications Generic Name Dose Route Start Last Admin Trade Name Freq PRN Reason Stop Dose Admin Albuterol/Ipratropium 3 ml 09/05/23 15:51 09/05/23 16:09 Ipratropium/Albuterol 3 Ml Neb IH 09/05/23 15:52 3 ml ONCE ONE Administration Furosemide 80 mg 09/05/23 15:33 09/05/23 15:48 Furosemide 40mg/4ml Vial IV 09/05/23 15:34 80 mg ONCE ONE Administration Nitroglycerin/Dextrose 250 mls @ 1.5 mls/hr 09/05/23 16:00 09/05/23 16:05 Nitroglycerin 50mg/250ml D5w IV 10/05/23 15:59 10 mcg/min .Q24H ERICK 3 mls/hr Titration Protocol 5 MCG/MIN ORDERS Category Date Time Status Chest XR -- portable [XR chest portable] Stat Exams 09/05/23 15:33 Taken POCUS Point of Care (ER Only) Stat Exams 09/05/23 15:36 Completed BNP [NT Pro Brain Natriuretic Pep.] Stat Lab 09/05/23 15:40 Results CBC w/Auto Diff [Complete Blood Count Auto Diff] Stat Lab 09/05/23 15:40 Completed CMP [Comprehensive Metabolic Panel] Stat Lab 09/05/23 15:40 Results D-Dimer Stat Lab 09/05/23 15:40 Completed INR [Prothrombin Time INR] Stat Lab 09/05/23 15:40 Completed Lactic Acid Stat Lab 09/05/23 15:58 Completed Magnesium Stat Lab 09/05/23 15:40 Results Procalcitonin Stat Lab 09/05/23 15:40 Results Rapid PCR Covid and Flu A/B Stat Lab 09/05/23 15:40 Completed Trop I [Troponin I] Stat Lab 09/05/23 15:40 Results Troponin I Q3H Lab 09/05/23 18:45 Ordered Troponin I Q3H Lab 09/05/23 21:45 Ordered UA [Urinalysis and Microscopic] Stat Lab 09/05/23 15:40 Results ECG Data Tracing #1: ECG Narrative: Independently interpreted by me, rate is 97, rhythm is irregular, sinus with frequent PVCs, right bundle branch block, no ST elevation in anatomical contiguous leads. Q waves in the anterior leads. QTc 435.
--- NOTE | 2023-09-05 15:33 | XR_ITS ---
FINAL REPORT CLINICAL HISTORY: Chest pain, dyspnea COMPARISON: 05/25/2020 FINDINGS: SINGLE-VIEW CHEST There is cardiomegaly with worsening pulmonary vascular congestion. The mediastinum is normal. There are worsening bibasilar opacities, favor atelectasis over pneumonia. There is no pneumothorax. IMPRESSION: Worsening bibasilar atelectasis over pneumonia. Worsening pulmonary vascular congestion. Reviewed, Interpreted and Dictated by Jayy Maki III, MD Transcribed by Isabel Aguilera Authenticated and [facility]
[2023-09-05 15:43] LABS: Coronavirus 19, PCR Not Detected (NotDetected); Influenza A, PCR Not Detected (NotDetected); Influenza B, PCR Not Detected (NotDetected)
[2023-09-05] MEDS: FUROSEMIDE 40MG/4ML VIAL 80 MG IV (15:48)
[2023-09-05 15:53] LABS: Basophils # 0.2 K/mm3 (0-0.2); Basophils % 3.6 % (0.1-2.0); Eosinophils # 0.2 K/mm3 (0.0-0.4); Eosinophils % 3.4 % (0.1-12.0); Hematocrit 46.3 % (37.0-47.0); Hemoglobin 14.2 g/dL (12.2-16.2); Lymphocytes # 1.4 K/mm3 (0.7-4.5); Mean Corpuscular HGB Conc 30.6 g/dL (31.8-35.4); Mean Corpuscular Hemoglobin 29.3 pg (27.0-31.2); Mean Corpuscular Volume 95.6 fl (81-99); Mean Platelet Volume 7.6 fl (7.4-10.4); Monocytes # 0.4 K/mm3 (0.1-1.0); Monocytes % 5.5 % (1.7-9.3); Neutrophils # 4.3 K/mm3 (1.8-7.8); Neutrophils % 66.6 % (37.0-80.0); Platelet Count 209 K/mm3 (142-424); Red Blood Count 4.84 M/mm3 (4.20-5.40); Red Cell Distribution Width 14.5 % (11.5-17.5); White Blood Count 6.5 K/mm3 (4.8-10.8)
[2023-09-05] MEDS: NITROGLYCERIN IN 5 % DEXTROSE 250 ML 1.5 MG IV (15:55)
[2023-09-05 15:56] LABS: Potassium 3.4 mmoL/L (3.5-5.1); Sodium 142 mmol/L (136-145)
[2023-09-05] MEDS: NITROGLYCERIN 0.4MG SL TABLET 0.400000000000000022 MG SL (15:57)
[2023-09-05 15:58] LABS: Alanine Aminotransferase 25 U/L (12-78); Aspartate Amino Transferase 35 U/L (14-36); Bilirubin,Total 0.7 mg/dl (0.2-1.3); Blood Urea Nitrogen 24 mg/dl (7-17); Creatinine Clearance Estimated 68 mL/min (50-200); Estimated Glomerular Filt Rate 38 ml/min (>60); GFR (African American) 47 ML/MIN (>60)
[2023-09-05 15:59] LABS: Albumin Level 3.6 g/dl (3.5-5.0); Albumin/Globulin Ratio 1.1 (1.1-1.8); Alkaline Phosphatase 135 U/L (38-126); Calcium 9.1 mg/dl (8.4-10.2); Carbon Dioxide 33 mmol/L (22.0-30.0); Globulin 3.2 g/dL (1.3-3.2); Glucose 183 mg/dl (74-100); Magnesium 2.1 mg/dl (1.6-2.3); Total Protein,Serum 6.8 g/dl (6.3-8.2)
[2023-09-05 16:01] LABS: INR 1.06 (0.9-1.1); Prothrombin Time 11.4 seconds (10.1-12.5)
[2023-09-05 16:09] LABS: D-Dimer 0.58 ug/mL (0.0-0.5)
[2023-09-05] MEDS: IPRATROPIUM/ALBUTEROL 3 ML NEB IH (16:09)
[2023-09-05 16:10] LABS: NT Pro Brain Natriuretic Pep. 5320 pg/mL (0-125)
--- NOTE | 2023-09-05 16:11 | PC.NURSE ---
pt refused any more nitro at this time
[2023-09-05 16:12] LABS: Troponin I 0.02 ng/ml (0.00-0.034)
[2023-09-05 16:16] LABS: Lactic Acid 1.6 mmol/L (0.7-2.1)
[2023-09-05 16:19] LABS: Microscopic, Urine URINE MICROSCOPIC (MICROSCOPIC)
[2023-09-05 16:23] LABS: Anion Gap 7.4 mEq/L (5-15); Chloride 105 mmol/L (98-107)
[2023-09-05 16:25] LABS: Appearance,Urine CLEAR (Clear); Bilirubin,Urine Negative (Negative); Blood, Urine 1+ (Negative); Color,Urine YELLOW (Yellow); Glucose,Urine (UA) TRACE (Negative); Ketones,Urine Negative (Negative); Leukocyte Esterase,Urine Negative (Negative); Nitrate,Urine Negative (Negative); PH,Urine 6.5 (5.0-8.5); Protein,Urine 2+ (Negative); Specific Gravity, Urine 1.025 (1.005-1.030)
[2023-09-05 16:44] LABS: Bacteria,Urine Trace /lpf; Procalcitonin 0.074 ng/mL (0.0-2.0); WBC,Urine Occasional #/hpf (0-3)
--- NOTE | 2023-09-05 16:45 | PC.NURSE ---
CALLED HOUSE FOR A BED ASSIGNMENT
--- NOTE | 2023-09-05 17:08 | PC.NURSE ---
Called report to Poly Pollack RN
--- NOTE | 2023-09-05 17:15 | EXP.HP ---
History of Present Illness *Admission Date: 09/05/23 *Reason for visit:: Weakness, shortness of breath, chest pain *History of present illness: Ms. Graham is a 58-year-old female with no significant medical care over the past 2 to 4 years. She presented to PCP office today for the initial evaluation of weakness and dizziness. States she has been gaining weight with swelling in her legs over the past week or so. History of stroke 4 years ago and was hypertensive. On medication until about 2 years ago but has had no meds since then. Reports having worsening shortness of breath over the past 2 to 3 months. Is dyspneic at rest. Has not had any insurance since her stroke due to inability to work and has fallen out of routine care with the healthcare system. On no medications at this time. Has been having some pain in her left chest. Workup in the ER initiated with chest imaging and labs. Concerning for acute heart failure with elevated BNP, elevated creatinine concerning for SASHA versus CKD. Oxygen requirement. Patient volume overloaded. Malignant hypertension with systolic above 200 and diastolic above 100. Was initiated on nitroglycerin drip. Cardiology was consulted and case was discussed with Dr. Cespedes. Recommended transitioning nitroprusside. Medicine consulted for admission. On my evaluation, patient is feeling somewhat better. Diuresing well and has had at least 5 episodes of urine output. Denies any fever, nausea, vomiting, diarrhea. Able to speak in complete sentences. States she is feeling somewhat better since having increased urine output. No dizziness at this time. Does have residual left-sided deficits from her stroke with weakness and numbness. Able to ambulate independently however. Reports she used to be a heavy smoker up to 4 packs a day until her stroke. Has gradually weaned down to approximately a pack a week at this point. No known history of diabetes. [facility] Disclaimer: The information contained in this section may have been updated after the patient was seen, as this information can be updated by other users. Medical History Tobacco use Acute coronary syndrome Hypertensive emergency Hypertensive cardiomyopathy COPD (chronic obstructive pulmonary disease) CVA (cerebral vascular accident) Uncontrolled hypertension Constipation Surgical History H/O: hysterectomy History of Family History Other No significant family history Social History Smoking Status: Current some day smoker tobacco type: cigarettes packs per day: 1 alcohol intake: never substance use type: former substance user and marijuana current occupational status: other Travel in the last 8 weeks: None household members: significant other and children housing: house caffeine: Yes Review of Systems Review of Systems Review of systems (narrative): 14 point review of systems performed, pertinent positives and negatives as per HPI Meds Home Medications and Allergies Home Medications Medication Instructions Recorded Confirmed Type No Known Home Medications 09/05/23 09/05/23 History New Prescriptions to Start Prescriptions: Allergies Allergy/AdvReac Type Severity Reaction Status Date / Time No Known Allergies Allergy Verified 09/05/23 14:40 Exam Data for Last 24 hours Vital signs and Labs for Last 24 Hours: Temp Pulse Resp BP Pulse Ox O2 Del Method O2 Flow Rate 98.6 F 85 24 176/89 H 99 Room Air 2 09/05/23 15:16 09/05/23 17:01 09/05/23 17:01 09/05/23 17:01 09/05/23 17:01 09/05/23 17:01 09/05/23 16:36 Laboratory Results - last 24 hr 09/05/23 15:40: WBC 6.5, RBC 4.84, Hgb 14.2, Hct 46.3, MCV 95.6, MCH 29.3, MCHC 30.6 L, RDW 14.5, Plt Count 209, MPV 7.6, Neut % (Auto) 66.6, Lymph % (Auto) 21.0, [place] % (Auto) 5.5, Eos % (Auto) 3.4, Baso % (Auto) 3.6 H, Neut # (Auto) 4.3, Lymph # (Auto) 1.4, [place] # (Auto) 0.4, Eos # (Auto) 0.2, Baso # (Auto) 0.2, PT 11.4, INR 1.06, D-Dimer 0.58 H, Sodium 142, Potassium 3.4 L, Chloride 105, Carbon Dioxide 33 H, Anion Gap 7.4, BUN 24 H, Creatinine 1.40 H, Estimated Creat Clear 68, Estimated GFR 38 L, Est GFR ( Amer) 47 L, Glucose 183 H, Calcium 9.1, Magnesium 2.1, Total Bilirubin 0.7, AST 35, ALT 25, Alkaline Phosphatase 135 H, Troponin I 0.02, NT-Pro-B Natriuret Pep 5320 H, Total Protein 6.8 D, Albumin 3.6, Globulin 3.2, Albumin/Globulin Ratio 1.1, Procalcitonin 0.074, Urine Color Yellow, Urine Appearance Clear, Urine pH 6.5, Ur Specific [place] 1.025, Urine Protein 2+, Urine Glucose (UA) Trace, Urine Ketones Negative, Urine Blood 1+, Urine Nitrate Negative, Urine Bilirubin Negative, Urine Urobilinogen 1.0, Ur Leukocyte Esterase Negative, Urine RBC None, Urine WBC Occasional, Ur Squamous Epith Cells 3-5, Urine Bacteria Trace, SARS-CoV-2 (PCR) Not detected, Influenza A Untype (PCR) Not detected, Influenza Type B (PCR) Not detected 09/05/23 15:58: Lactate 1.6 I & O for Last 24 hours: Intake & Output 09/02/23 09/03/23 09/04/23 09/05/23 23:59 23:59 23:59 23:59 Intake Total 0.25 / 0.25 Balance 0.25 / 0.25 Weight 98.883 kg Constitutional Constitutional: mild distress, obese, chronically ill appearing and cooperative *Routine HEENT Exam Head: Present normocephalic Eye: Present EOMI and PERRL ENT: Present mucous membranes moist *Routine Neck Exam Neck: Present supple and JVD; Absent lymphadenopathy Routine Chest/Breast/Axilla Exam Chest wall: Absent tenderness *Routine Respiratory Exam Respiratory: Present prolonged expiratory phase, crackles (Bases) and normal respiratory effort; Absent rhonchi or wheezes *Routine Cardiovascular Exam Cardiovascular: Present RRR *Routine Abdominal Exam Abdominal: Present soft and normoactive bowel sounds; Absent tenderness *Routine Rectal Exam Rectal:: deferred *Routine Genitalia Exam Genitalia:: deferred *Routine Extremities Exam Extremities: Present edema (3+ edema bilateral lower extremities to thighs); Absent cyanosis or clubbing *Routine Skin Exam Skin: Present warm; Absent rash *Routine Neurological Exam Neurological: Present alert, oriented X3 and moving all extremities; Absent altered mental status Comments: Decreased sensation in left upper and lower extremity Assessment and Plan *Assessment and plan (1) Acute hypoxemic respiratory failure: Status: Acute Category: Medical Code(s): J96.01 - Acute respiratory failure with hypoxia (2) Hypertensive emergency: Status: Acute Category: Medical Code(s): I16.1 - Hypertensive emergency (3) Acute CHF (congestive heart failure): Status: Acute Qualifiers: Heart failure type: unspecified Qualified Code(s): I50.9 - Heart failure, unspecified Category: Medical Code(s): I50.9 - Heart failure, unspecified (4) Tobacco use: Status: Chronic Category: Social Hx Code(s): Z72.0 - Tobacco use (5) COPD (chronic obstructive pulmonary disease): Status: Chronic Qualifiers: COPD type: unspecified COPD Qualified Code(s): J44.9 - Chronic obstructive pulmonary disease, unspecified Category: Medical Code(s): J44.9 - Chronic obstructive pulmonary disease, unspecified (6) CVA (cerebral vascular accident): Status: Chronic Qualifiers: CVA mechanism: unspecified Qualified Code(s): I63.9 - Cerebral infarction, unspecified Category: Medical Code(s): I63.9 - Cerebral infarction, unspecified (7) Newly diagnosed diabetes: Status: Acute Category: Medical Code(s): E11.9 - Type 2 diabetes mellitus without complications (8) Class II obesity: Status: Acute Category: Medical Code(s): E66.9 - Obesity, unspecified Plan 58-year-old female with poor follow-up over the past 2 years. History of CVA and hypertension. Presented to the ER with dizziness. Found to have malignant hypertension, volume overload, concerning for acute CHF with new oxygen requirement. Initiated on diuresis and nitroprusside drip for hypertension. Discussed case with ER, request admission for further management of her hypertension and cardiology evaluation. Medicine agreed to admit for further management. Admitted to ICU level of care due to her malignant hypertension, stroke history, high risk for decompensation and concern for acute CHF. Problems addressed as follows: Malignant hypertension Acute CHF, undetermined - BNP elevated at 5300 on admission. Troponin 0.02 and stable. Chest imaging showing cardiomegaly. Initiated on diuretics with Lasix 80 mg IV once. Diuresing well. -Cardiology consulted, recommended initiating nitroprusside drip. Goal systolic less than 180. Caution with dropping blood pressure too fast. BP on initial presentation with systolic as high as 220 with diastolic 120. Goal decrease 20% in the first 12 hours. -Initiate carvedilol 6.25 mg twice daily starting in the morning -Continue Lasix 80 mg twice daily with dose due in the morning -Initiate Jardiance 10 mg daily for heart failure -Echocardiogram pending. Further management with antihypertensives pending finding of type of heart failure -TSH pending New diagnosis of diabetes -A1c 7.8. No known history. Jardiance as above. Initiated on sliding scale insulin with fingersticks ACHS. Further management pending response to insulin and documented insulin needs. Anticipate oral regimen prior to discharge home given new diagnosis and A1c within 1 point of goal <7 SASHA over CKD -Creatinine 1.3. Baseline approximately 4 years ago was normal at 1. Repeat CBC, CMP, magnesium ordered for the morning. Caution with nephrotoxins. Close monitoring with diuresis as above Tobacco use disorder: Nicotine patch 14 mg daily as needed. Counseled on smoking cessation benefits for more than 10 minutes. Given history of stroke and new finding of heart failure, patient would benefit greatly from cessation. Patient has been trying to wean down. Interested in patches. Full code Heparin subcu twice daily Cardiac diet
[2023-09-05] MEDS: NITROPRUSSIDE SODIUM 50 MG in DEXTROSE 5 % IN WATER 250 ML 8.97000000000000064 MG IV (17:36)
[2023-09-05 18:34] LABS: Hemoglobin A1C 7.8 % (4.0-6.0); Troponin I 0.02 ng/ml (0.00-0.034)
[2023-09-05 18:52] LABS: Thyroid Stimulating Hormone 1.71 uIU/mL (0.465-4.68)
--- NOTE | 2023-09-05 19:00 | PC.NURSE ---
Called hospitalist about patient last three bp's systolic 160's, drip placed on standby. Waiting orders.
[2023-09-05] MEDS: HEPARIN SODIUM 5,000 UNIT/ML VIAL 5000 UNIT SQ (20:58)
[2023-09-05] MEDS: CYCLOBENZAPRINE 10MG TABLET 5 MG PO (21:36)
[2023-09-05 22:22] LABS: POC Glucose,Bedside 150 (70-110)
[2023-09-05 22:32] LABS: Troponin I 0.02 ng/ml (0.00-0.034)
[2023-09-06] VITALS (36 sets, daily range): BP systolic 136–178; BP diastolic 71–112; PULSE 64–110; RESP 17–28; TEMP 36.6–36.9; O2SAT 90–97; BMI 34.1
[2023-09-06] MEDS: CYCLOBENZAPRINE 10MG TABLET 5 MG PO (01:30)
[2023-09-06] MEDS: POTASSIUM CHLORIDE 20MEQ TAB 60 MEQ PO (01:30)
[2023-09-06] MEDS: MAGNESIUM SULFATE IN WATER 2 GM/50 ML PIGGYBACK IV (01:30)
[2023-09-06 01:47] LABS: Anion Gap 9.1 mEq/L (5-15); Blood Urea Nitrogen 21 mg/dl (7-17); Calcium 9.4 mg/dl (8.4-10.2); Carbon Dioxide 34 mmol/L (22.0-30.0); Chloride 101 mmol/L (98-107); Creatinine Clearance Estimated 66 mL/min (50-200); Estimated Glomerular Filt Rate 38 ml/min (>60); GFR (African American) 47 ML/MIN (>60); Glucose 189 mg/dl (74-100); Magnesium 2.1 mg/dl (1.6-2.3); Potassium 3.1 mmoL/L (3.5-5.1); Sodium 141 mmol/L (136-145)
--- NOTE | 2023-09-06 06:00 | CA_ITS ---
APPROVED REPORT EXAM: Comprehensive 2D, Doppler, and color-flow Echocardiogram [employer] Operator: Celia Koroma, RCS, RVS Ht: 5 ft 4 in Wt: 218lbs BSA: 2.03 BP: 176/89 mmHg Indications: Acute coronary syndrome, LVH, COPD, CHF, CVA, SMOKER, WEAKNESS, CP, MURMUR 2D Dimensions IVSd 1.42 cm F: 0.6-1.0 LVEF (Visual) 28.80 % PWd 1.72 cm F: 0.6 - 1.0 LA Volume 112.10 mL LVDd 5.98 cm F: 3.9 - 5.3 LA Volume Index 55.461128 mL/m2 (M/F) 16-34 LVDs 5.16 cm F: 2.2 - 3.5 Left Atrium 4.41 cm F: 2.7 - 3.8 M-Mode Dimensions LA Diam 4.63 cm (1.9-4.0) LVDd 5.79 cm (3.5-5.7) LVDs 4.84 cm (3.5-5.7) IVSd 1.52 cm (0.6-1.1) PWd 1.64 cm (0.6-1.1) EF (Teich) 33.90% EPSs 2.29 cm FS 16.40% EDV (Teich) 165.90 mL TAPSE 1.94 (<1.7) ESV (Teich) 109.60 mL LV Diastology E Decel Time 143 (160-240 msec) E/A Ratio 2.48 MED A' 7.20 cm/s LAT A' 5.00 cm/s Pulm Vein s 77.00 cm/sec Aortic Valve CLAUDE Index 0.98 cm2/m2 AoV Peak Skyler. 171.0 (50-130 cm/s) AI PHT 353.00 ms AO Peak GR. 11.70 mmHg AO Mean GR. 5.80 (<5 mmHg) AO VTI 28.2 (18-25 cm) CLAUDE (VTI) 2.04 (2.5-4.5 cm2) Mitral Valve MV A Velocity 46.0 (40-130 cm/s) E/A Ratio 2.48 Pulmonary Valve PV Peak Velocity 94.0 (50-150 cm/s) NH End VMAX 202.0 cm/s Tricuspid Valve TR P. Velocity 347.00 cm/s RAP Estimate 10.00 mmHg RVSP 58.10 mmHg Left Ventricle The left ventricle is moderately dilated (LVEDVi 90 ml/m2). The left ventricular systolic function is moderately to severely reduced. There is increased LV wall thickness. There is moderate to severe global hypokinesis present. Grade 3 diastolic dysfunction is present. LVEF is 30%. Right Ventricle The right ventricle is mildly dilated. Right ventricle is mildly hypokinetic. Atria The left atrium is severely dilated. The right atrium is moderately dilated. There is no Doppler evidence of interatrial shunt. Aortic Valve The aortic valve is mildly thickened. Moderate aortic regurgitation. There is no aortic valvular stenosis. Mitral Valve The mitral valve leaflets are mildly thickened. The posterior leaflet appears restricted in motion and tethered. No evidence of mitral valve stenosis. Severe mitral regurgitation. The MR jet is eccentric and posteriorly directed. The mechanism is likely functional due to tethering of the posterior leaflet (Xavi class IIIB). Tricuspid Valve The tricuspid valve leaflets are thin and pliable. Moderate tricuspid regurgitation. RVSP is 50-55 mmHg. Pulmonic Valve The pulmonary valve is normal in structure. Mild pulmonic regurgitation. Great Vessels The aortic root is normal in size. The ascending aorta is not well-visualized. IVC is normal in size and collapses >50% with inspiration. Pericardium Trivial pericardial effusion. Other Information Study Quality: Fair Conclusion Moderate LV dilation (LVEDVi 90 ml/m2) with moderate to severe reduction in LV function (LVEF 30%). Mild RV dilation with mild reduction in RV function. Biatrial dilation. Severe MR (likely functional in the setting of tethered posterior MV leaflet, Xavi class IIIB). Moderate AI, moderate TR. Mild TR. Trivial pericardial effusion. In the setting of biventricular dysfunction and significant valvular disease, further evaluation once euvolemic as an outpatient with cardiac MRI (cardiomyopathy protocol + mitral regurgitation protocol) + SHER to evaluate for the cardiomyopathy and mechanism/severity of MR is recommended. Electronically signed by : Kristan Carr MD 09/08/2023 23:52:20
[2023-09-06 06:15] LABS: POC Glucose,Bedside 135 (70-110)
[2023-09-06 06:32] LABS: Chloride 103 mmol/L (98-107); Potassium 3.2 mmoL/L (3.5-5.1); Sodium 139 mmol/L (136-145)
[2023-09-06 06:34] LABS: Basophils # 0.1 K/mm3 (0-0.2); Basophils % 1.3 % (0.1-2.0); Blood Urea Nitrogen 19 mg/dl (7-17); Creatinine Clearance Estimated 72 mL/min (50-200); Eosinophils # 0.3 K/mm3 (0.0-0.4); Eosinophils % 3.4 % (0.1-12.0); Estimated Glomerular Filt Rate 46 ml/min (>60); GFR (African American) 56 ML/MIN (>60); Hematocrit 47.5 % (37.0-47.0); Hemoglobin 14.5 g/dL (12.2-16.2); Lymphocytes # 1.2 K/mm3 (0.7-4.5); Lymphocytes % 16.7 % (10-50); Mean Corpuscular HGB Conc 30.6 g/dL (31.8-35.4); Mean Corpuscular Volume 94.8 fl (81-99); Mean Platelet Volume 7.8 fl (7.4-10.4); Monocytes # 0.5 K/mm3 (0.1-1.0); Monocytes % 7.2 % (1.7-9.3); Neutrophils # 5.3 K/mm3 (1.8-7.8); Neutrophils % 71.4 % (37.0-80.0); Platelet Count 208 K/mm3 (142-424); Red Blood Count 5.01 M/mm3 (4.20-5.40); Red Cell Distribution Width 14.7 % (11.5-17.5); White Blood Count 7.4 K/mm3 (4.8-10.8)
[2023-09-06 06:35] LABS: Alanine Aminotransferase 21 U/L (12-78); Albumin Level 3.5 g/dl (3.5-5.0); Albumin/Globulin Ratio 1.1 (1.1-1.8); Alkaline Phosphatase 137 U/L (38-126); Anion Gap 4.2 mEq/L (5-15); Aspartate Amino Transferase 33 U/L (14-36); Bilirubin,Total 1.1 mg/dl (0.2-1.3); Carbon Dioxide 35 mmol/L (22.0-30.0); Globulin 3.3 g/dL (1.3-3.2); Glucose 139 mg/dl (74-100); Magnesium 2.3 mg/dl (1.6-2.3); Total Protein,Serum 6.8 g/dl (6.3-8.2)
[2023-09-06] MEDS: NITROPRUSSIDE SODIUM 50 MG in DEXTROSE 5 % IN WATER 250 ML 8.97000000000000064 MG IV (07:45)
--- NOTE | 2023-09-06 07:57 | P.PN_ITS ---
Subjective *Date: 09/06/23 *Time: 18:24 Medical Exam Vital signs and Labs for Last 24 Hours: Vital Signs Temp Pulse Pulse Pulse Resp BP BP 09/06/23 07:00 89 18 95/53 L 09/06/23 06:48 09/06/23 06:00 92 H 24 136/75 09/06/23 05:00 98 H 24 172/85 H 09/06/23 05:00 09/06/23 04:34 97.8 F 09/06/23 04:00 80 09/06/23 04:00 85 09/06/23 04:00 88 22 154/86 H 09/06/23 03:00 89 17 163/89 H 09/06/23 03:00 09/06/23 02:00 87 20 160/90 H 09/06/23 01:00 90 22 136/71 09/06/23 01:00 09/06/23 00:00 90 09/06/23 00:00 90 09/06/23 00:00 98.0 F 89 22 162/97 H 09/05/23 23:00 91 H 24 179/98 H 09/05/23 23:00 09/05/23 22:00 88 20 164/77 H 09/05/23 21:00 84 19 169/95 H 09/05/23 20:34 98.3 F 09/05/23 20:00 90 09/05/23 20:00 92 H 09/05/23 20:00 92 H 20 174/83 H 09/05/23 18:56 84 22 166/92 H 09/05/23 18:38 09/05/23 18:33 81 22 161/87 H 09/05/23 18:33 81 22 161/87 H 09/05/23 17:30 09/05/23 17:30 90 18 195/119 H 09/05/23 17:29 90 09/05/23 17:21 98.7 F 91 H 20 174/100 H 09/05/23 17:18 98.8 F 98 H 26 H 178/81 H 09/05/23 17:01 85 24 176/89 H 09/05/23 16:56 89 24 188/115 H 09/05/23 16:51 21 209/109 H 09/05/23 16:46 84 24 194/97 H 09/05/23 16:41 86 19 199/99 H 09/05/23 16:36 88 22 147/124 H 09/05/23 16:26 92 H 30 H 210/110 H 09/05/23 16:21 89 19 213/114 H 09/05/23 16:16 93 H 23 210/106 H 09/05/23 16:14 98 H 24 222/123 H 09/05/23 16:05 86 24 199/106 H 09/05/23 16:04 90 23 203/113 H 09/05/23 15:53 95 H 22 207/103 H 09/05/23 15:34 100 H 23 09/05/23 15:16 98.6 F 93 H 20 223/108 H Pulse Ox O2 Del Method O2 Flow Rate FiO2 09/06/23 07:00 93 L Mechanical Ventilation 40 09/06/23 06:48 Room Air 09/06/23 06:00 90 L Room Air 09/06/23 05:00 91 L Room Air 09/06/23 05:00 Room Air 09/06/23 04:34 09/06/23 04:00 09/06/23 04:00 90 L Room Air 09/06/23 04:00 91 L Room Air 09/06/23 03:00 90 L Room Air 09/06/23 03:00 Room Air 09/06/23 02:00 95 Room Air 09/06/23 01:00 90 L Room Air 09/06/23 01:00 Room Air 09/06/23 00:00 09/06/23 00:00 90 L Room Air 09/06/23 00:00 95 Room Air 09/05/23 23:00 97 Room Air 09/05/23 23:00 Room Air 09/05/23 22:00 96 Room Air 09/05/23 21:00 92 L Room Air 09/05/23 20:34 09/05/23 20:00 09/05/23 20:00 95 Room Air 09/05/23 20:00 95 Room Air 09/05/23 18:56 97 Room Air 09/05/23 18:38 Room Air 09/05/23 18:33 96 Room Air 09/05/23 18:33 96 Room Air 09/05/23 17:30 Room Air 09/05/23 17:30 97 Nasal Cannula 2 09/05/23 17:29 09/05/23 17:21 Nasal Cannula 2 09/05/23 17:18 Nasal Cannula 2 09/05/23 17:01 99 Room Air 09/05/23 16:56 97 Room Air 09/05/23 16:51 99 Room Air 09/05/23 16:46 99 Room Air 09/05/23 16:41 97 Room Air 09/05/23 16:36 99 Nasal Cannula 2 09/05/23 16:26 97 Nasal Cannula 2 09/05/23 16:21 100 Nasal Cannula 2 09/05/23 16:16 100 Nasal Cannula 2 09/05/23 16:14 95 Nasal Cannula 2 09/05/23 16:05 98 Room Air 09/05/23 16:04 99 Room Air 09/05/23 15:53 97 Room Air 09/05/23 15:34 99 09/05/23 15:16 97 Nasal Cannula Intake and Output 09/05/23 09/05/23 09/06/23 15:59 23:59 07:59 Intake Total 494.103 / 494.103 139.035 / 139.035 Output Total 2800 / 3600 1999 Balance -2305.897 / -3105.897 -1860.965 / -1860.965 Intake: Intake, Oral Amount 450 / 450 Intake, Total IV Amount 44.103 / 44.103 139.035 / 139.035 Output: Output, Urine Amount 2800 / 3600 1999 Other: Number of Unmeasured Voids 1 1 Weight 98.883 kg 97 kg 90.718 kg Patient Weight 09/06/23 23:59 Weight 90.718 kg Laboratory Results - last 24 hr 09/05/23 15:40: WBC 6.5, RBC 4.84, Hgb 14.2, Hct 46.3, MCV 95.6, MCH 29.3, MCHC 30.6 L, RDW 14.5, Plt Count 209, MPV 7.6, Neut % (Auto) 66.6, Lymph % (Auto) 21.0, [place] % (Auto) 5.5, Eos % (Auto) 3.4, Baso % (Auto) 3.6 H, Neut # (Auto) 4.3, Lymph # (Auto) 1.4, [place] # (Auto) 0.4, Eos # (Auto) 0.2, Baso # (Auto) 0.2, PT 11.4, INR 1.06, D-Dimer 0.58 H, Sodium 142, Potassium 3.4 L, Chloride 105, Carbon Dioxide 33 H, Anion Gap 7.4, BUN 24 H, Creatinine 1.40 H, Estimated Creat Clear 68, Estimated GFR 38 L, Est GFR ( Amer) 47 L, Glucose 183 H, Calcium 9.1, Magnesium 2.1, Total Bilirubin 0.7, AST 35, ALT 25, Alkaline Phosphatase 135 H, Troponin I 0.02, NT-Pro-B Natriuret Pep 5320 H, Total Protein 6.8 D, Albumin 3.6, Globulin 3.2, Albumin/Globulin Ratio 1.1, Procalcitonin 0.074, Urine Color Yellow, Urine Appearance Clear, Urine pH 6.5, Ur Specific [employer] 1.025, Urine Protein 2+, Urine Glucose (UA) Trace, Urine Ketones Negative, Urine Blood 1+, Urine Nitrate Negative, Urine Bilirubin Negative, Urine Urobilinogen 1.0, Ur Leukocyte Esterase Negative, Urine RBC None, Urine WBC Occasional, Ur Squamous Epith Cells 3-5, Urine Bacteria Trace, SARS-CoV-2 (PCR) Not detected, Influenza A Untype (PCR) Not detected, Influenza Type B (PCR) Not detected 09/05/23 15:58: Lactate 1.6 09/05/23 17:55: Hemoglobin A1c 7.8 H, Troponin I 0.02, TSH 1.71 09/05/23 20:40: POC Glucose 150 H 09/05/23 22:00: Troponin I 0.02 09/06/23 01:29: Sodium 141, Potassium 3.1 L, Chloride 101, Carbon Dioxide 34 H, Anion Gap 9.1, BUN 21 H, Creatinine 1.40 H, Estimated Creat Clear 66, Estimated GFR 38 L, Est GFR ( Amer) 47 L, Glucose 189 H, Calcium 9.4, Magnesium 2.1 09/06/23 05:31: WBC 7.4, RBC 5.01, Hgb 14.5, Hct 47.5 H, MCV 94.8, MCH 29.0, MCHC 30.6 L, RDW 14.7, Plt Count 208, MPV 7.8, Neut % (Auto) 71.4, Lymph % (Auto) 16.7, [place] % (Auto) 7.2, Eos % (Auto) 3.4, Baso % (Auto) 1.3, Neut # (Auto) 5.3, Lymph # (Auto) 1.2, [place] # (Auto) 0.5, Eos # (Auto) 0.3, Baso # (Auto) 0.1, Sodium 139, Potassium 3.2 L, Chloride 103, Carbon Dioxide 35 H, Anion Gap 4.2 L, BUN 19 H, Creatinine 1.20 H, Estimated Creat Clear 72, Estimated GFR 46 L, Est GFR ( Amer) 56 L, Glucose 139 H D, Calcium 9.0, Magnesium 2.3, Total Bilirubin 1.1, AST 33, ALT 21, Alkaline Phosphatase 137 H, Total Protein 6.8, Albumin 3.5, Globulin 3.3 H, Albumin/Globulin Ratio 1.1 09/06/23 05:57: POC Glucose 135 H I & O for Labs for Last 24 Hours: Intake & Output 09/03/23 09/04/23 09/05/23 09/06/23 23:59 23:59 23:59 23:59 Intake Total 494.103 / 494.103 139.035 / 139.035 Output Total 2800 / 3600 1999 Balance -2305.897 / -3105.897 -1860.965 / -1860.965 Weight 97 kg 90.718 kg Assessment and Plan *Assessment and plan (1) Acute HFrEF (heart failure with reduced ejection fraction): Status: Acute Category: Medical Code(s): I50.21 - Acute systolic (congestive) heart failure (2) Cardiomyopathy: Status: Acute Qualifiers: Cardiomyopathy type: unspecified Qualified Code(s): I42.9 - Cardiomy opathy, unspecified Category: Medical Code(s): I42.9 - Cardiomyopathy, unspecified (3) Acute hypoxemic respiratory failure: Status: Acute Category: Medical Code(s): J96.01 - Acute respiratory failure with hypoxia (4) Mitral valve insufficiency: Status: Acute Qualifiers: Cardiac valve disease etiology: etiology unspecified Qualified Code(s): I34.0 - Nonrheumatic mitral (valve) insufficiency Category: Medical Code(s): I34.0 - Nonrheumatic mitral (valve) insufficiency (5) Hypertensive emergency: Status: Acute Category: Medical Code(s): I16.1 - Hypertensive emergency (6) Tobacco use: Status: Chronic Category: Social Hx Code(s): Z72.0 - Tobacco use (7) COPD (chronic obstructive pulmonary disease): Status: Chronic Qualifiers: COPD type: unspecified COPD Qualified Code(s): J44.9 - Chronic obstructive pulmonary disease, unspecified Category: Medical Code(s): J44.9 - Chronic obstructive pulmonary disease, unspecified (8) CVA (cerebral vascular accident): Status: Chronic Qualifiers: CVA mechanism: unspecified Qualified Code(s): I63.9 - Cerebral infarction, unspecified Category: Medical Code(s): I63.9 - Cerebral infarction, unspecified (9) Newly diagnosed diabetes: Status: Acute Category: Medical Code(s): E11.9 - Type 2 diabetes mellitus without complications (10) Class II obesity: Status: Acute Category: Medical Code(s): E66.9 - Obesity, unspecified Plan 58-year-old female with poor follow-up over the past 2 years. History of CVA and hypertension. Presented to the ER with dizziness. Found to have malignant hypertension, volume overload, concerning for acute CHF with new oxygen requirement. Initiated on diuresis and nitroprusside drip for hypertension. Discussed case with ER, request admission for further management of her hypertension and cardiology evaluation. Medicine agreed to admit for further management. Cardiology evaluating today. Patient taken for left heart cath. Has new diagnosis of heart failure with reduced ejection fraction. Medication adjustments as below. Continues to require inpatient management. De-escalate from ICU to acute level of care. Problems addressed as follows: Malignant hypertension Acute failure with reduced ejection fraction - BNP elevated at 5300 on admission. Troponin 0.02 and stable. Chest imaging showing cardiomegaly. -4 L since admission. Continue diuresis with Lasix 80 mg IV twice daily - Discussed case with cardiology. Echo concerning for acute heart failure with reduced ejection fraction. EF 30%. Stop carvedilol at this time, consider restarting when euvolemic. Initiate lisinopril 40 mg daily. Continue Jardiance 10 mg daily. Initiate spironolactone 25 mg daily. Responding to diuresis, continue Lasix 80 mg IV twice daily - TSH 1.7, no hypothyroidism. -Improving oxygenation with diuresis. Weaned to room air today. Goal sats greater 90%. New diagnosis of diabetes -A1c 7.8. No known history. Jardiance as above. Initiated on sliding scale insulin with fingersticks ACHS. Further management pending response to insulin and documented insulin needs. Anticipate oral regimen prior to discharge home given new diagnosis and A1c within 1 point of goal <7 SASHA over CKD -Creatinine 1. 2 this morning. BUN 19. Suspect this may be her new baseline. Repeat CBC, CMP, magnesium ordered for the morning. Caution with nephrotoxins. Close monitoring with diuresis as above Tobacco use disorder: Nicotine patch 14 mg daily as needed. Full code Heparin subcu twice daily Cardiac diet
[2023-09-06] MEDS: FUROSEMIDE 100MG/10ML VIAL 80 MG IV ×2 (08:39→17:17)
[2023-09-06] MEDS: HEPARIN SODIUM 5,000 UNIT/ML VIAL 5000 UNIT SQ ×2 (08:39→20:33)
[2023-09-06] MEDS: EMPAGLIFLOZIN 10MG TABLET 10 MG PO (08:39)
[2023-09-06] MEDS: CARVEDILOL 6.25MG TABLET 6.25 MG PO (08:42)
--- NOTE | 2023-09-06 09:55 | HMH.PTEV ---
Physical Therapy Evaluation Rehab PT IP Evaluation Start: 09/05/23 18:40 Freq: ONCE Status: Active Protocol: Document 09/06/23 09:45 MIKEYShortyRASHIDA (Rec: 09/06/23 09:55 PHORRASHIDA [id number]) Subjective/History History History The patient is a 58 yof that presents to [facility] with hypertension and CHF from her PCP with complaints of dizziness and weakness. She had noticed lower extremity weakness and swelling over the last few weeks or so. She has had no care for the prior two years. She has a [facility] signficant for Tobacco use Acute coronary syndrome Hypertensive emergency Hypertensive cardiomyopathy COPD (chronic obstructive pulmonary disease) CVA (cerebral vascular accident) Uncontrolled hypertension Constipation Subjective Subjective Patient is in bed upon arrival and agreeable to PT. She is oriented x4. She reports that she is feeling a little bit better. She reports that she lives in a two-story home with her boyfriend and adult aged daughter. She reports that she used a RW or cane for ambulation prior to her hospitalization. She reports that she had some difficulty with dressing and bathing, but she was able to do it independently. New diagnosis of cancer in past 12 No months? Rehab PT IP Eval Objective Appearance Patient Behavior Appropriate,Patient Baseline Patient Orientation Person,Place,Time,Birthday Difficulty following instructions none Speech Pattern Clear,Patient Baseline Ambulation Patient Able to Ambulate Yes Ambulation Observation IP General Gait Pattern Observation Shuffling Step Ambulation Distance (feet) 12 Ambulation Assistive Device Rolling Walker Ambulation Ability Contact Guard/Hand Hold Balance Ability to Arise Able, uses arms to help Sitting Balance Steady, safe Standing Balance Narrow stance w/o support Dynamic Sitting Balance Ability Good Dynamic Standing Balance Ability Good Transfers Bed Transfer Ability Supervision/Stand by Chair Transfer Ability Contact Guard/Hand Hold Sit to Stand Bed Transfer Ability Contact Guard/Hand Hold Sit to Stand Chair Transfer Ability Contact Guard/Hand Hold Rehab PT IP prob,goals,plan Problems Date of Evaluation: 09/06/23 PT IP Problems Bed Mobility,Transfers,Gait, Balance,Self care,Safety Rehab Potential Rehab Potential Good Equipment Needs Assistive Devices Rolling / Wheeled Walker Plan PT Intervention Plan Bed Mobility,Transfers,Gait, Balance,Self care,Safety, Therapeutic Exercise PT Plan Frequency Daily Duration LOS Discharge Goals Bed Transfer Ability Independent Sit to Stand Chair Transfer Ability Independent Ambulation Assistive Device Rolling Walker Ambulation Distance (feet) 50 Discharge Plan PT Discharge Plan Patient presents for initial evaluation and presents below baseline in functional mobility, endurance and transfers. Skilled PT is indicated for this patient to return to her prior level of function. Upon discharge, the patient may be most appropriate for discharge to home, when deemed medically stable. Eval Complexity Eval Charge Codes 88947 - High Complexity PHYSICIAN CERTIFICATION: I certify the specified therapy services for Kannan Leonardo are required, authorized, and reviewed every 30 days.
--- NOTE | 2023-09-06 10:04 | PC.NURSE ---
jarrell mahan on standby, bp 148/90
--- NOTE | 2023-09-06 11:16 | EXP.CARD.CON ---
History of Present Illness History of Present Illness Consult date: 09/06/23 Requesting physician: Derek Hernández Consult reason: shortness of breath Chief complaint: SOA History of present illness: This is a 58-year-old female who presents to the emergency department with complaints of shortness of breath and chest pain. The patient has not received any medical care for the last approximately 2 to 4 years. The patient went and to establish with a primary care provider yesterday due to her shortness of breath, chest pain and weakness. The patient states that she has been short of breath for quite some time but it significantly started worsening in the last few weeks. She states that she feels like she had a heaviness in the central aspect of her chest. It does not radiate. She says that it can be severe it is worse with exertion and improves with rest. The patient does report over the last week she has had lower extremity edema and worsening of her shortness of breath. The patient reports that she had a stroke approximately 4 years ago and was hypertensive at that time. The patient states that she was on medications for her hypertension until approximately 2 years ago. She states that she has no insurance and had to stop taking all of her medications. She states that she has not had any insurance due to her stroke and her inability to work. The patient reports that she was told she had a heart condition when she had her stroke as well but she really does not know what that heart condition is. The patient was a 4 pack/day smoker and has decreased the amount of cigarettes that she has been smoking. She states most recently she has been smoking about 1 pack of cigarettes a week and has not had any cigarettes for the last few days. Upon arrival to her primary care provider's office her blood pressure was malignantly elevated and she was sent to the emergency department. Here at the emergency department her systolic blood pressure was above 200 and her diastolic blood pressure was above 100. She was initially started on a nitroglycerin drip. Cardiology was consulted and she was switched over to a nitroprusside drip. Her blood pressure has improved this morning. She states that her chest heaviness has resolved this morning. She states that her shortness of breath has significantly improved but she is still very short of breath even with talking during my examination this morning. She still has lower extremity edema but it has improved as well. She denies any fever, chills, nausea, vomiting, diarrhea. She does have associated orthopnea with her shortness of breath. [facility] Disclaimer: The information contained in this section may have been updated after the patient was seen, as this information can be updated by other users. Medical History (Updated 09/06/23 @ 13:04 by Patience Jim APRN) Cardiomyopathy Aortic insufficiency Mitral valve insufficiency Hypokalemia LV dysfunction Abnormal electrocardiogram [ECG] [EKG] Edema Hyperlipidemia Hypertension Acute HFrEF (heart failure with reduced ejection fraction) Tobacco use Acute coronary syndrome Hypertensive emergency Hypertensive cardiomyopathy COPD (chronic obstructive pulmonary disease) CVA (cerebral vascular accident) Uncontrolled hypertension Constipation Surgical History H/O: hysterectomy History of Family History Other No significant family history Social History Smoking Status: Current some day smoker tobacco type: cigarettes packs per day: 1 alcohol intake: never substance use type: former substance user and marijuana current occupational status: other Travel in the last 8 weeks: None household members: significant other and children housing: house caffeine: Yes Review of Systems Review of Systems Review of systems:: pertinent systems reviewed and negative unless documented below Constitutional Constitutional: Reports system reviewed and no additional complaints, except as documented, Reports fatigue, Reports lethargy and Reports weakness Eyes Eyes: Reports system reviewed and no additional complaints, except as documented ENT Ears, Nose, Mouth, and Throat: Reports system reviewed and no additional complaints, except as documented *Cardiovascular Cardiovascular: Reports system reviewed and no additional complaints, except as documented, Reports chest pain, Reports chest pain at rest, Reports chest pain with activity, Reports dyspnea, Reports dyspnea on exertion, Reports edema, Reports leg edema, Reports lightheadedness, Reports orthopnea and Reports pedal edema *Respiratory Respiratory: Reports system reviewed and no additional complaints, except as documented, Reports dyspnea and Reports dyspnea on exertion *Gastrointestinal Gastrointestinal: Reports system reviewed and no additional complaints, except as documented *Genitourinary Genitourinary: Reports system reviewed and no additional complaints, except as documented *Musculoskeletal Musculoskeletal: Reports system reviewed and no additional complaints, except as documented Integumentary/Breasts Skin/Breast: Reports system reviewed and no additional complaints, except as documented *Neurologic Neurologic: Reports system reviewed and no additional complaints, except as documented and Reports weakness Psychiatric Psychiatric: Reports system reviewed and no additional complaints, except as documented Endocrine Endocrine: Reports system reviewed and no additional complaints, except as documented and Reports fatigue Hematologic/Lymphatic Hematologic/Lymphatic: Reports system reviewed and no additional complaints, except as documented Allergic/Immunologic Allergic/Immunologic: Reports system reviewed and no additional complaints, except as documented Exam Data for Last 24 hours Vital signs and Labs for Last 24 Hours: Temp Pulse Resp BP Pulse Ox O2 Del Method O2 Flow Rate 98.3 F 86 24 148/90 H 94 L Room Air 2 09/06/23 08:00 09/06/23 09:34 09/06/23 09:34 09/06/23 09:34 09/06/23 09:34 09/06/23 09:34 09/05/23 17:30 Laboratory Results - last 24 hr 09/05/23 15:40: WBC 6.5, RBC 4.84, Hgb 14.2, Hct 46.3, MCV 95.6, MCH 29.3, MCHC 30.6 L, RDW 14.5, Plt Count 209, MPV 7.6, Neut % (Auto) 66.6, Lymph % (Auto) 21.0, Stark % (Auto) 5.5, Eos % (Auto) 3.4, Baso % (Auto) 3.6 H, Neut # (Auto) 4.3, Lymph # (Auto) 1.4, Stark # (Auto) 0.4, Eos # (Auto) 0.2, Baso # (Auto) 0.2, PT 11.4, INR 1.06, D-Dimer 0.58 H, Sodium 142, Potassium 3.4 L, Chloride 105, Carbon Dioxide 33 H, Anion Gap 7.4, BUN 24 H, Creatinine 1.40 H, Estimated Creat Clear 68, Estimated GFR 38 L, Est GFR ( Amer) 47 L, Glucose 183 H, Calcium 9.1, Magnesium 2.1, Total Bilirubin 0.7, AST 35, ALT 25, Alkaline Phosphatase 135 H, Troponin I 0.02, NT-Pro-B Natriuret Pep 5320 H, Total Protein 6.8 D, Albumin 3.6, Globulin 3.2, Albumin/Globulin Ratio 1.1, Procalcitonin 0.074, Urine Color Yellow, Urine Appearance Clear, Urine pH 6.5, Ur Specific Husser 1.025, Urine Protein 2+, Urine Glucose (UA) Trace, Urine Ketones Negative, Urine Blood 1+, Urine Nitrate Negative, Urine Bilirubin Negative, Urine Urobilinogen 1.0, Ur Leukocyte Esterase Negative, Urine RBC None, Urine WBC Occasional, Ur Squamous Epith Cells 3-5, Urine Bacteria Trace, SARS-CoV-2 (PCR) Not detected, Influenza A Untype (PCR) Not detected, Influenza Type B (PCR) Not detected 09/05/23 15:58: Lactate 1.6 09/05/23 17:55: Hemoglobin A1c 7.8 H, Troponin I 0.02, TSH 1.71 09/05/23 20:40: POC Glucose 150 H 09/05/23 22:00: Troponin I 0.02 09/06/23 01:29: Sodium 141, Potassium 3.1 L, Chloride 101, Carbon Dioxide 34 H, Anion Gap 9.1, BUN 21 H, Creatinine 1.40 H, Estimated Creat Clear 66, Estimated GFR 38 L, Est GFR ( Amer) 47 L, Glucose 189 H, Calcium 9.4, Magnesium 2.1 09/06/23 05:31: WBC 7.4, RBC 5.01, Hgb 14.5, Hct 47.5 H, MCV 94.8, MCH 29.0, MCHC 30.6 L, RDW 14.7, Plt Count 208, MPV 7.8, Neut % (Auto) 71.4, Lymph % (Auto) 16.7, Stark % (Auto) 7.2, Eos % (Auto) 3.4, Baso % (Auto) 1.3, Neut # (Auto) 5.3, Lymph # (Auto) 1.2, Stark # (Auto) 0.5, Eos # (Auto) 0.3, Baso # (Auto) 0.1, Sodium 139, Potassium 3.2 L, Chloride 103, Carbon Dioxide 35 H, Anion Gap 4.2 L, BUN 19 H, Creatinine 1.20 H, Estimated Creat Clear 72, Estimated GFR 46 L, Est GFR ( Amer) 56 L, Glucose 139 H D, Calcium 9.0, Magnesium 2.3, Total Bilirubin 1.1, AST 33, ALT 21, Alkaline Phosphatase 137 H, Total Protein 6.8, Albumin 3.5, Globulin 3.3 H, Albumin/Globulin Ratio 1.1 09/06/23 05:57: POC Glucose 135 H I & O for Last 24 hours: Intake & Output 09/03/23 09/04/23 09/05/23 09/06/23 23:59 23:59 23:59 23:59 Intake Total 494.103 / 494.103 155.331 / 155.331 Output Total 2800 / 3600 3450 / 3450 Balance -2305.897 / -3105.897 -3294.669 / -3294.669 Weight 213 lb 13.574 oz 200 lb Narrative: EKG is sinus rhythm with a rate of 97 bpm. She has an old inferior MT pattern and an old anterior septal MT pattern. Constitutional Constitutional: no acute distress and obese *Routine HEENT Exam Head: Present normocephalic and atraumatic ENT: Present mucous membranes moist *Routine Neck Exam Neck: Present supple, full ROM and normal carotid upstroke; Absent JVD, carotid bruit or lymphadenopathy *Routine Respiratory Exam Respiratory: Present rales and symmetric chest movement; Absent able to speak in complete sentences *Routine Cardiovascular Exam Cardiovascular: Present RRR, Normal S1 and Normal S2; Absent murmur or gallop *Routine Abdominal Exam Abdominal: Present soft and normoactive bowel sounds; Absent tenderness, distended or organomegaly *Routine Extremities Exam Extremities: Present edema (2+ BLE), full ROM, pulses intact and normal capillary refill; Absent cyanosis or clubbing *Routine Skin Exam Skin: Present intact and warm; Absent erythema *Routine Neurological Exam Neurological: Present alert, oriented X3 and CN II-XII intact; Absent sensory deficit or motor deficit Routine Psychiatric Exam Psychiatric: Present normal affect Meds Home Medications and Allergies Home Medications Medication Instructions Recorded Confirmed Type No Known Home Medications 09/05/23 09/06/23 History New Prescriptions to Start Prescriptions: Allergies Allergy/AdvReac Type Severity Reaction Status Date / Time No Known Allergies Allergy Verified 09/05/23 14:40 Assessment and Plan *Assessment and plan (1) Acute HFrEF (heart failure with reduced ejection fraction): Status: Acute Category: Medical Code(s): I50.21 - Acute systolic (congestive) heart failure (2) Hypertensive emergency: Status: Acute Category: Medical Code(s): I16.1 - Hypertensive emergency (3) Hypertensive cardiomyopathy: Status: Chronic Qualifiers: Heart failure presence: without heart failure Qualified Code(s): I11.9 - Hypertensive heart disease without heart failure; I43 - Cardiomyopathy in diseases classified elsewhere Category: Medical Code(s): I11.9 - Hypertensive heart disease without heart failure; I43 - Cardiomyopathy in diseases classified elsewhere (4) Hyperlipidemia: Status: Acute Qualifiers: Hyperlipidemia type: mixed hyperlipidemia Qualified Code(s): E78.2 - Mixed hyperlipidemia Category: Medical Code(s): E78.5 - Hyperlipidemia, unspecified (5) Edema: Status: Acute Qualifiers: Edema type: localized Qualified Code(s): R60.0 - Localized edema Category: Medical Code(s): R60.9 - Edema, unspecified (6) Abnormal electrocardiogram [ECG] [EKG]: Status: Acute Category: Medical Code(s): R94.31 - Abnormal electrocardiogram [ECG] [EKG] (7) LV dysfunction: Status: Acute Category: Medical Code(s): I51.9 - Heart disease, unspecified (8) Hypokalemia: Status: Acute Category: Medical Code(s): E87.6 - Hypokalemia (9) Mitral valve insufficiency: Status: Acute Qualifiers: Cardiac valve disease etiology: etiology unspecified Qualified Code(s): I34.0 - Nonrheumatic mitral (valve) insufficiency Category: Medical Code(s): I34.0 - Nonrheumatic mitral (valve) insufficiency (10) Aortic insufficiency: Status: Acute Qualifiers: Cardiac valve disease etiology: etiology unspecified Qualified Code(s): I35.1 - Nonrheumatic aortic (valve) insufficiency Category: Medical Code(s): I35.1 - Nonrheumatic aortic (valve) insufficiency (11) Cardiomyopathy: Status: Acute Qualifiers: Cardiomyopathy type: unspecified Qualified Code(s): I42.9 - Cardiomyopathy, unspecified Category: Medical Code(s): I42.9 - Cardiomyopathy, unspecified Plan Plan: 1. The patient was admitted to the hospital with hypertensive emergency. The patient was initially started on a nitroglycerin drip and then was switched over to a nitroprusside drip. Her blood pressure started out over 200 systolic and over 100 diastolic. Her blood pressure is down to 148/90 this morning. The nitroprusside drip has been stopped. 2. The patient was started on oral carvedilol this morning. However given her cardiomyopathy we want to avoid the beta-jace potentially cardiology and cardiogenic shock. Stop carvedilol at this time. If the patient does decompensate then this is most likely from 1 dose of the beta-jace causing cardiogenic shock and/or her severe valve disease. We will restart a beta-jace when she is more euvolemic. 3. The patient had an echocardiogram. This shows her ejection fraction is 30%. She has severe mitral regurgitation with a very eccentric jet. She also has moderate to severe aortic insufficiency and moderate tricuspid regurgitation. The patient has severe biatrial dilatation. In addition her BNP was elevated at 5320 and her chest x-ray showed pulmonary vascular congestion. 4. The patient needs very aggressive diuresis secondary to her severe LV dysfunction and severe MR and moderate tricuspid regurgitation. Continue Lasix 80 mg IV twice daily. If she does decompensate this is not from overdiuresis and more likely from the beta-jace causing cardiogenic shock. 5. Start lisinopril 40 mg p.o. daily for better blood pressure control and HFrEF. She does not have insurance and likely cannot afford Entresto. 6. Continue Jardiance for HFrEF. 7. The patient has new onset HFrEF and cardiomyopathy. She does have an abnormal EKG. Will plan to proceed with left cardiac catheterization today to evaluate for coronary artery disease to make sure that her cardiomyopathy is not ischemic. 8. The patient has been educated the risk and benefits of proceeding with left cardiac catheterization. The patient verbalized understanding and is agreeable in proceeding with the procedure. 9. The patient will be n.p.o. in preparation for left cardiac catheterization. 10. Start spironolactone 25 mg p.o. daily for HFrEF. 11. Her LDL goal is less than 55. Will get a lipid panel in the morning. She has been started on Lipitor 40 mg p.o. nightly. 12. Will start aspirin 81 mg daily. 13. The patient has a hemoglobin A1c of 7.8%. She has new onset diabetic. She has been started on Jardiance as mentioned above. 14. The patient does have a history of a CVA in the past. 15. Further recommendations will be made pending the patient's response to treatment and the results of her left cardiac catheterization today. Thank you for the opportunity to participate in the care of this patient. All recommendations and orders are per Dr. Carr. Addendum: Left cardiac catheterization shows: The left main artery Normal The left anterior descending artery Small caliber widely patent with mild diffuse 10% luminal irregularities The circumflex artery Large dominant widely patent with mild diffuse 10% luminal irregularities The right coronary artery Vestigial and patent The VOGT ventriculogram reveals Not performed The left ventricular end-diastolic pressure Not measured IMPRESSION Mild diffuse nonflow limiting luminal irregularities Nonischemic cardiomyopathy PLAN 1. Standard therapy for nonischemic cardiomyopathy Continue with aggressive diuresis for her nonischemic cardiomyopathy and aggressive blood pressure control.
[2023-09-06] MEDS: humaLOG 100 UNITS/ML 3ML VIAL (SSI) SQ ×2 (11:20→20:34)
--- NOTE | 2023-09-06 12:45 | IR_ITS ---
APPROVED REPORT Patient Location: Inpatient Corrective Therapy Aide: AVERY De Leon RT (R) PROCEDURES Selective coronary angiogram INDICATION Elevated troponin, New onset cardiomyopathy ejection fraction 30% Informed consent was obtained prior to the procedure. COMPLICATIONS None Estimated Blood Loss: Less than 10 mls TECHNIQUE One percent lidocaine used to anesthetize the right anterior aspect of the wrist. The right radial artery was accessed via the Seldinger technique. A 6 Turkish sheath was placed in the right radial artery. 2.5 mg of Verapamil, 800 mcg of nitroglycerin, 1mg Lidocaine and 5000 U Heparin were given through the arterial sheath. The papa catheter was also used to perform left heart catheterization, left ventriculogram and selective coronary angiogram. At the end of the procedure the sheath was removed good hemostasis was achieved using Traclet band, patient was transferred to the postop holding area in stable condition. ANGIOGRAPHIC RESULTS The left main artery Normal The left anterior descending artery Small caliber widely patent with mild diffuse 10% luminal irregularities The circumflex artery Large dominant widely patent with mild diffuse 10% luminal irregularities The right coronary artery Vestigial and patent The VOGT ventriculogram reveals Not performed The left ventricular end-diastolic pressure Not measured IMPRESSION Mild diffuse nonflow limiting luminal irregularities Nonischemic cardiomyopathy PLAN 1. Standard therapy for nonischemic cardiomyopathy Electronically signed by : Stephon Cespedes MD 09/06/2023 14:26:35
--- NOTE | 2023-09-06 13:04 | HMH.OTEV ---
OT Inpatient Evaluation Rehab OT IP Evaluation Start: 09/05/23 18:40 Freq: ONCE Status: Active Protocol: Document 09/06/23 12:10 EDITH (Rec: 09/06/23 13:03 EDITH [id number]) Rehab OT IP Assessment Subjective History Ms. Graham is a 58-year-old female with no significant medical care over the past 2 to 4 years. She presented to PCP office today for the initial evaluation of weakness and dizziness. States she has been gaining weight with swelling in her legs over the past week or so. History of stroke 4 years ago and was hypertensive. On medication until about 2 years ago but has had no meds since then. Reports having worsening shortness of breath over the past 2 to 3 months. Is dyspneic at rest. Has not had any insurance since her stroke due to inability to work and has fallen out of routine care with the healthcare system. On no medications at this time. Has been having some pain in her left chest. Workup in the ER initiated with chest imaging and labs. Concerning for acute heart failure with elevated BNP, elevated creatinine concerning for SASHA versus CKD. Oxygen requirement. Patient volume overloaded. Malignant hypertension with systolic above 200 and diastolic above 100. Was initiated on nitroglycerin drip. Cardiology was consulted and case was discussed with Dr. Cespedes. Recommended transitioning nitroprusside. Medicine consulted for admission. On my evaluation, patient is feeling somewhat better. Diuresing well and has had at least 5 episodes of urine output. Denies any fever, nausea, vomiting, diarrhea. Able to speak in complete sentences. States she is feeling somewhat better since having increased urine output. No dizziness at this time. Does have residual left-sided deficits from her stroke with weakness and numbness. Able to ambulate independently however. Reports she used to be a heavy smoker up to 4 packs a day until her stroke. Has gradually weaned down to approximately a pack a week at this point. No known history of diabetes. Patient lives with in 1 story home with 1STE and 1 step inside of home. Indepedent with ADL and fx'l mobility with usage of RW. Subjective I can do what I need to do. Analysis Patient's functional mobility with bed mobility, transfers, ADLs and ambulation . Patient completed all tasks with CGA with usage of RW. Objective Patient Orientation Person,Place,Name,Age,Year Right Upper Extremity Gross ROM WFL Left Upper Extremity Gross ROM WFL Bed Mobility bed mobility - supine/sit Assist Level Contact Guard/Hand Hold Transfer Training Sit/Stand/Pivot Transfer Assist Level Contact Guard/Hand Hold Chair Transfer Ability Contact Guard/Hand Hold Chair Transfer Technique Sit to/from Ambulatory Chair Transfer Assistive Devices Rolling Walker Lower Body Dressing Ability Independent Rehab OT IP prob,goals,plan Problems Date of Evaluation: 09/06/23 OT IP Problems Bed Mobility,Transfers,Balance ,Self care,Safety Rehab Potential Rehab Potential Good Equipment Needs Assistive Devices Rolling / Wheeled Walker Plan OT intervention Plan Bed Mobility,Transfers,Gait, Balance,Self care,Safety, Therapeutic Exercise OT Plan Frequency Daily Duration LOS Discharge Goals Bed Mobility Ability Assistance x1 Sit to Stand Chair Transfer Ability Supervision/Stand by Chair Transfer Ability Supervision/Stand by Chair Transfer Technique Sit to/from Ambulatory Chair Transfer Assistive Devices Rolling Walker Upper Body Dressing Ability Independent Discharge Plan OT Discharge Plan Recommend return home with services. Patient to continue skilled IP OT services while here at [facility]. Eval Complexity Eval Charge Codes 04387 - Low Complexity PHYSICIAN CERTIFICATION: I certify the specified therapy services for Kannan Leonardo are required, authorized, and reviewed every 30 days.
[2023-09-06] MEDS: diphenhydrAMINE 50MG/ML VIAL 50 MG IV (14:08)
[2023-09-06] MEDS: HEPARIN 1,000 UNITS/500ML NS (CATH LAB) 3000 UNIT IV (14:15)
[2023-09-06] MEDS: 0.9 % SODIUM CHLORIDE 500 ML 25 ML IV (14:15)
[2023-09-06] MEDS: LIDOCAINE 1% 10ML MDV 20 ML IJ (14:16)
[2023-09-06] MEDS: NITROGLYCERIN 800MCG/8ML SYR (CATH LAB) 800 MCG IA (14:16)
[2023-09-06] MEDS: HEPARIN 1,000 UNITS/ML 10ML VIAL (CATH LAB) 10000 UNIT IV (14:16)
[2023-09-06] MEDS: FENTANYL 100MCG/2ML VIAL 50 MCG IV (14:23)
[2023-09-06] MEDS: MIDAZOLAM HCL 1MG/1ML 5ML VIAL 1 MG IV (14:24)
[2023-09-06 14:31] LABS: POC Glucose,Bedside 308 (70-110)
[2023-09-06] MEDS: IOPAMIDOL-370 (76%);100ML BOTTLE 50 ML IV (15:02)
[2023-09-06 15:22] LABS: Basophils # 0.1 K/mm3 (0-0.2); Basophils % 0.9 % (0.1-2.0); Eosinophils # 0.4 K/mm3 (0.0-0.4); Eosinophils % 4.6 % (0.1-12.0); Hematocrit 44.1 % (37.0-47.0); Lymphocytes # 1.8 K/mm3 (0.7-4.5); Mean Corpuscular HGB Conc 31.6 g/dL (31.8-35.4); Mean Corpuscular Hemoglobin 29.7 pg (27.0-31.2); Mean Corpuscular Volume 93.9 fl (81-99); Mean Platelet Volume 7.4 fl (7.4-10.4); Monocytes # 0.6 K/mm3 (0.1-1.0); Monocytes % 6.6 % (1.7-9.3); Neutrophils # 5.7 K/mm3 (1.8-7.8); Neutrophils % 66.9 % (37.0-80.0); Platelet Count 219 K/mm3 (142-424); Red Cell Distribution Width 14.4 % (11.5-17.5); White Blood Count 8.5 K/mm3 (4.8-10.8)
[2023-09-06 15:28] LABS: Chloride 105 mmol/L (98-107); Potassium 3.5 mmoL/L (3.5-5.1); Sodium 141 mmol/L (136-145)
[2023-09-06 15:31] LABS: Anion Gap 7.5 mEq/L (5-15); Blood Urea Nitrogen 19 mg/dl (7-17); Calcium 9.3 mg/dl (8.4-10.2); Carbon Dioxide 32 mmol/L (22.0-30.0); Creatinine Clearance Estimated 67 mL/min (50-200); Estimated Glomerular Filt Rate 42 ml/min (>60); GFR (African American) 51 ML/MIN (>60); Glucose 78 mg/dl (74-100)
--- NOTE | 2023-09-06 16:41 | PC.NURSE ---
VS stable, tr band in place. No bleeding noted, Patient remained on room air. Patient alert and oriented times 4
[2023-09-06] MEDS: LISINOPRIL 20MG TABLET 40 MG PO (17:18)
[2023-09-06] MEDS: ASPIRIN EC 81MG TABLET 81 MG PO (17:18)
[2023-09-06] MEDS: SPIRONOLACTONE 25MG TABLET 25 MG PO (17:18)
[2023-09-06 17:37] LABS: POC Glucose,Bedside 91 (70-110)
[2023-09-06 20:11] LABS: POC Glucose,Bedside 185 (70-110)
[2023-09-06] MEDS: ATORVASTATIN 40MG TABLET 40 MG PO (20:33)
[2023-09-06] MEDS: POTASSIUM CHLORIDE 20MEQ TAB 40 MEQ PO (20:33)
[2023-09-07] VITALS: BP 128/73; PULSE 67; PULSE 70; RESP 22; TEMP 36.4; O2SAT 97
[2023-09-07 04:00] VITALS: BP 128/70; PULSE 60; PULSE 66; RESP 17; TEMP 36.5; O2SAT 94; BMI 34.7
[2023-09-07 05:40] LABS: POC Glucose,Bedside 126 (70-110)
[2023-09-07 06:39] LABS: Basophils # 0.1 K/mm3 (0-0.2); Basophils % 1.4 % (0.1-2.0); Eosinophils # 0.4 K/mm3 (0.0-0.4); Eosinophils % 5.9 % (0.1-12.0); Hematocrit 50.1 % (37.0-47.0); Lymphocytes # 1.8 K/mm3 (0.7-4.5); Lymphocytes % 27.6 % (10-50); Mean Corpuscular HGB Conc 29.9 g/dL (31.8-35.4); Mean Corpuscular Hemoglobin 28.4 pg (27.0-31.2); Mean Corpuscular Volume 95.1 fl (81-99); Monocytes # 0.5 K/mm3 (0.1-1.0); Monocytes % 6.8 % (1.7-9.3); Neutrophils # 3.8 K/mm3 (1.8-7.8); Neutrophils % 58.2 % (37.0-80.0); Platelet Count 231 K/mm3 (142-424); Red Blood Count 5.27 M/mm3 (4.20-5.40); Red Cell Distribution Width 14.6 % (11.5-17.5); White Blood Count 6.6 K/mm3 (4.8-10.8)
[2023-09-07 06:52] LABS: Chloride 101 mmol/L (98-107)
[2023-09-07 06:53] LABS: Potassium 3.3 mmoL/L (3.5-5.1); Sodium 139 mmol/L (136-145)
[2023-09-07 06:55] LABS: Alanine Aminotransferase 20 U/L (12-78); Alkaline Phosphatase 107 U/L (38-126); Anion Gap 6.3 mEq/L (5-15); Aspartate Amino Transferase 33 U/L (14-36); Bilirubin,Total 0.9 mg/dl (0.2-1.3); Blood Urea Nitrogen 20 mg/dl (7-17); Carbon Dioxide 35 mmol/L (22.0-30.0); Creatinine Clearance Estimated 63 mL/min (50-200); Estimated Glomerular Filt Rate 38 ml/min (>60); GFR (African American) 47 ML/MIN (>60)
[2023-09-07 06:56] LABS: Albumin Level 3.3 g/dl (3.5-5.0); Calcium 9.1 mg/dl (8.4-10.2); Globulin 3.2 g/dL (1.3-3.2); Glucose 135 mg/dl (74-100); Magnesium 2.6 mg/dl (1.6-2.3); Total Protein,Serum 6.5 g/dl (6.3-8.2)
[2023-09-07 06:59] LABS: Cholesterol 150 mg/dl (140-200); Triglycerides 118 mg/dl (30-150); VLDL Cholesterol 24 mg/dL (0-40)
[2023-09-07 07:00] LABS: Chol/HDL Ratio 5.8 (1-3.5); HDL Cholesterol 26 mg/dl (40-60)
[2023-09-07 08:00] VITALS: BP 93/57; PULSE 76; PULSE 80; RESP 22; TEMP 36.7; O2SAT 92
--- NOTE | 2023-09-07 08:56 | P.PN_ITS ---
Subjective *Date: 09/07/23 *Time: 20:58 Interval history: Patient feeling better. Breathing comfortable on room air. Still having some cramping in her legs. Swelling improving. Afebrile overnight. Working with therapy. Having good response to diuresis with significant urine output. -8 L volume status. Medical Exam Vital signs and Labs for Last 24 Hours: Vital Signs Temp Pulse Pulse Resp BP BP Pulse Ox 09/07/23 08:00 80 09/07/23 08:00 98.0 F 76 22 93/57 L 92 L 09/07/23 07:00 09/07/23 05:00 09/07/23 04:00 97.7 F 66 17 128/70 94 L 09/07/23 04:00 60 09/07/23 03:00 09/07/23 01:00 09/07/23 00:00 70 09/07/23 00:00 97.6 F 67 22 128/73 97 09/06/23 23:00 09/06/23 21:45 76 22 171/100 H 92 L 09/06/23 21:00 09/06/23 20:45 79 18 171/100 H 97 09/06/23 20:00 70 09/06/23 19:45 75 20 164/98 H 96 09/06/23 18:45 69 20 136/86 90 L 09/06/23 18:33 09/06/23 18:00 78 24 154/84 H 09/06/23 17:45 76 22 171/86 H 94 L 09/06/23 17:15 88 24 162/95 H 97 09/06/23 17:00 09/06/23 16:45 74 24 146/100 H 94 L 09/06/23 16:15 72 22 141/84 H 92 L 09/06/23 16:00 09/06/23 16:00 70 09/06/23 15:45 64 22 136/89 92 L 09/06/23 15:30 71 24 150/94 H 94 L 09/06/23 15:15 71 24 153/87 H 91 L 09/06/23 15:00 75 24 162/101 H 95 09/06/23 15:00 09/06/23 14:45 76 18 174/96 H 96 09/06/23 14:40 76 18 172/95 H 95 09/06/23 14:35 78 18 171/100 H 91 L 09/06/23 14:30 79 18 177/103 H 93 L 09/06/23 13:05 09/06/23 12:00 98.5 F 09/06/23 12:00 90 09/06/23 12:00 85 22 154/98 H 93 L 09/06/23 11:00 82 24 139/86 95 09/06/23 11:00 09/06/23 10:00 80 24 150/94 H 96 09/06/23 09:34 86 24 148/90 H 94 L 09/06/23 09:15 93 H 28 H 153/86 H 97 09/06/23 09:00 94 H 24 178/98 H 95 09/06/23 09:00 O2 Del Method O2 Flow Rate 09/07/23 08:00 09/07/23 08:00 Room Air 09/07/23 07:00 Nasal Cannula 2 09/07/23 05:00 Nasal Cannula 2 09/07/23 04:00 Room Air 09/07/23 04:00 09/07/23 03:00 Nasal Cannula 2 09/07/23 01:00 Nasal Cannula 2 09/07/23 00:00 09/07/23 00:00 Nasal Cannula 2 09/06/23 23:00 Room Air 09/06/23 21:45 Room Air 09/06/23 21:00 Room Air 09/06/23 20:45 Room Air 09/06/23 20:00 09/06/23 19:45 Room Air 09/06/23 18:45 Nasal Cannula 2 09/06/23 18:33 Room Air 09/06/23 18:00 09/06/23 17:45 Room Air 09/06/23 17:15 Room Air 09/06/23 17:00 Room Air 09/06/23 16:45 Room Air 09/06/23 16:15 Room Air 09/06/23 16:00 Room Air 09/06/23 16:00 09/06/23 15:45 Room Air 09/06/23 15:30 Room Air 09/06/23 15:15 Room Air 09/06/23 15:00 Room Air 09/06/23 15:00 Room Air 09/06/23 14:45 Room Air 09/06/23 14:40 Room Air 09/06/23 14:35 Room Air 09/06/23 14:30 Room Air 09/06/23 13:05 Room Air 09/06/23 12:00 09/06/23 12:00 09/06/23 12:00 Room Air 09/06/23 11:00 Room Air 09/06/23 11:00 Room Air 09/06/23 10:00 Room Air 09/06/23 09:34 Room Air 09/06/23 09:15 Room Air 09/06/23 09:00 Room Air 09/06/23 09:00 Room Air Intake and Output 09/06/23 09/07/23 09/07/23 23:59 07:59 15:59 Intake Total 360 / 755.331 240 / 480 240 / 480 Output Total 2600 / 6850 750 / 750 0 / 750 Balance -2240 / -6094.669 -510 / -270 240 / -270 Intake: Intake, Oral Amount 360 / 600 240 / 480 240 / 480 Output: Output, Urine Amount 2600 / 6850 750 / 750 0 / 750 Other: Number of Unmeasured Voids 1 Weight 92.108 kg Patient Weight 09/07/23 23:59 Weight 92.108 kg Laboratory Results - last 24 hr 09/06/23 11:14: POC Glucose 308 H* 09/06/23 15:05: WBC 8.5, RBC 4.70, Hgb 14.0, Hct 44.1, MCV 93.9, MCH 29.7, MCHC 31.6 L, RDW 14.4, Plt Count 219, MPV 7.4, Neut % (Auto) 66.9, Lymph % (Auto) 21.0, [place] % (Auto) 6.6, Eos % (Auto) 4.6, Baso % (Auto) 0.9, Neut # (Auto) 5.7, Lymph # (Auto) 1.8, [place] # (Auto) 0.6, Eos # (Auto) 0.4, Baso # (Auto) 0.1, Sodium 141, Potassium 3.5, Chloride 105, Carbon Dioxide 32 H, Anion Gap 7.5, BUN 19 H, Creatinine 1.30 H, Estimated Creat Clear 67, Estimated GFR 42 L, Est GFR ( Amer) 51 L, Glucose 78 D, Calcium 9.3 09/06/23 17:08: POC Glucose 91 09/06/23 20:00: POC Glucose 185 H 09/07/23 05:30: WBC 6.6, RBC 5.27, Hgb 15.0, Hct 50.1 H, MCV 95.1, MCH 28.4, MCHC 29.9 L, RDW 14.6, Plt Count 231, MPV 8.0, Neut % (Auto) 58.2, Lymph % (Auto) 27.6, [place] % (Auto) 6.8, Eos % (Auto) 5.9, Baso % (Auto) 1.4, Neut # (Auto) 3.8, Lymph # (Auto) 1.8, [place] # (Auto) 0.5, Eos # (Auto) 0.4, Baso # (Auto) 0.1, Sodium 139, Potassium 3.3 L, Chloride 101, Carbon Dioxide 35 H, Anion Gap 6.3, BUN 20 H, Creatinine 1.40 H, Estimated Creat Clear 63, Estimated GFR 38 L, Est GFR ( Amer) 47 L, Glucose 135 H D, POC Glucose 126 H, Calcium 9.1, Magnesium 2.6 H D, Total Bilirubin 0.9, AST 33, ALT 20, Alkaline Phosphatase 107, Total Protein 6.5, Albumin 3.3 L, Globulin 3.2, Albumin/Globulin Ratio 1.0 L, Triglycerides 118, Cholesterol 150, LDL C holesterol Direct 90.80 L, VLDL Cholesterol 24, HDL Cholesterol 26 L, Cholesterol/HDL Ratio 5.8 H I & O for Labs for Last 24 Hours: Intake & Output 09/04/23 09/05/23 09/06/23 09/07/23 23:59 23:59 23:59 23:59 Intake Total 494.103 / 494.103 515.331 / 755.331 480 / 480 Output Total 2800 / 3600 6550 / 6850 750 / 750 Balance -2305.897 / -3105.897 -6034.669 / -6094.669 -270 / -270 Weight 97 kg 90.7 kg 92.108 kg Constitutional: Present no acute distress, obese, chronically ill appearing and cooperative Head: Present atraumatic and normocephalic ENT: Present normal exam Neck: Present normal inspection Respiratory: Present crackles (Minimal in bilateral bases) and normal respiratory effort; Absent rhonchi or wheezes Cardiac: Present Reg Rate and Rhythm and Audible Murmur GI: Present soft and normal bowel sounds; Absent distention or tenderness Extremities: Present normal inspection, full ROM and edema (2+ edema to the knees, wrinkling of skin on legs) Skin: Present intact and dry; Absent cyanosis or erythema Neuro: Present Grossly Intact, alert, awake, oriented x 3 and moves all extremities Assessment and Plan *Assessment and plan (1) Acute HFrEF (heart failure with reduced ejection fraction): Status: Acute Category: Medical Code(s): I50.21 - Acute systolic (congestive) heart failure (2) Cardiomyopathy: Status: Acute Qualifiers: Cardiomyopathy type: unspecified Qualified Code(s): I42.9 - Cardiomyopathy, unspecified Category: Medical Code(s): I42.9 - Cardiomyopathy, unspecified (3) Acute hypoxemic respiratory failure: Status: Acute Category: Medical Code(s): J96.01 - Acute respiratory failure with hypoxia (4) Mitral valve insufficiency: Status: Acute Qualifiers: Cardiac valve disease etiology: etiology unspecified Qualified Code(s): I34.0 - Nonrheumatic mitral (valve) insufficiency Category: Medical Code(s): I34.0 - Nonrheumatic mitral (valve) insufficiency (5) Hypertensive emergency: Status: Acute Category: Medical Code(s): I16.1 - Hypertensive emergency (6) Tobacco use: Status: Chronic Category: Social Hx Code(s): Z72.0 - Tobacco use (7) COPD (chronic obstructive pulmonary disease): Status: Chronic Qualifiers: COPD type: unspecified COPD Qualified Code(s): J44.9 - Chronic obst ructive pulmonary disease, unspecified Category: Medical Code(s): J44.9 - Chronic obstructive pulmonary disease, unspecified (8) CVA (cerebral vascular accident): Status: Chronic Qualifiers: CVA mechanism: unspecified Qualified Code(s): I63.9 - Cerebral infarction, unspecified Category: Medical Code(s): I63.9 - Cerebral infarction, unspecified (9) Newly diagnosed diabetes: Status: Acute Category: Medical Code(s): E11.9 - Type 2 diabetes mellitus without complications (10) Class II obesity: Status: Acute Category: Medical Code(s): E66.9 - Obesity, unspecified (11) Hypokalemia: Status: Acute Category: Medical Code(s): E87.6 - Hypokalemia (12) CAD in [place] artery: Status: Acute Category: Medical Code(s): I25.10 - Atherosclerotic heart disease of [place] coronary artery without angina pectoris (13) Bilateral lower extremity edema: Status: Acute Category: Medical Code(s): R60.0 - Localized edema Plan 58-year-old female with poor follow-up over the past 2 years. History of CVA and hypertension. Presented to the ER with dizziness. Found to have malignant hypertension, volume overload, concerning for acute CHF with new oxygen requirement. Initiated on diuresis and nitroprusside drip for hypertension. Discussed case with ER, request admission for further management of her hypertension and cardiology evaluation. Medicine agreed to admit for further management. Cardiology evaluating today. Patient taken for left heart cath. Has new diagnosis of heart failure with reduced ejection fraction. Medication adjustments as below. Continues to require inpatient management. Problems ad dressed as follows: Malignant hypertension Acute failure with reduced ejection fraction Acute heart failure with reduced ejection fraction - BNP elevated at 5300 on admission. Troponin 0.02 and stable. Chest imaging showing cardiomegaly. -8 L since admission. -Cardiology consulted, discussed case this morning. Decrease to Lasix 40 mg twice daily. Goal creatinine 1.6 -Increase lisinopril to 20 mg daily -EF 30% on echo. - Continue Jardiance 10 mg daily. spironolactone 25 mg daily. New diagnosis of diabetes -A1c 7.8. No known history. Jardiance as above. Initiated on sliding scale insulin with fingersticks ACHS. Further management pending response to insulin and documented insulin needs. Anticipate oral regimen prior to discharge home given new diagnosis and A1c within 1 point of goal <7 SASHA over CKD Hypokalemia - Potassium 3.3. Replacing 40 mEq of orally twice daily. Repeat CBC, CMP, magnesium ordered for the morning. -Creatinine 1.4 this morning. BUN 20. Suspect this may be her new baseline. Repeat CBC, CMP, magnesium ordered for the morning. Caution with nephrotoxins. Close monitoring with diuresis as above Tobacco use disorder: Nicotine patch 14 mg daily as needed. Full code Heparin subcu twice daily Cardiac diet
[2023-09-07] MEDS: HEPARIN SODIUM 5,000 UNIT/ML VIAL 5000 UNIT SQ ×2 (09:32→21:57)
[2023-09-07] MEDS: EMPAGLIFLOZIN 10MG TABLET 10 MG PO (09:32)
[2023-09-07] MEDS: LISINOPRIL 10MG TABLET 10 MG PO (09:32)
[2023-09-07] MEDS: POTASSIUM CHLORIDE 20MEQ TAB 40 MEQ PO ×2 (09:33→21:58)
[2023-09-07] MEDS: ASPIRIN EC 81MG TABLET 81 MG PO (09:35)
[2023-09-07] MEDS: SPIRONOLACTONE 25MG TABLET 25 MG PO (09:35)
--- NOTE | 2023-09-07 10:54 | P.PN_ITS ---
Subjective Subjective Date: 09/07/23 Time: 09:30 Principal diagnosis: acute HFrEF, malignant HTN Interval history: This is a 58-year-old [place] woman who is admitted to the hospital with complaints of shortness of breath and chest pain. The patient was found to have a malignantly elevated blood pressure and initially started on nitroglycerin drip and then switched over to a nitroprusside drip with improvement in her blood pressure. She was started on oral lisinopril yesterday and her blood pressure has significantly improved. She did have new onset HFrEF with an ejection fraction of 30% and severe MR on echocardiogram. The patient is being aggressively diuresed with IV Lasix. She underwent left cardiac catheterization yesterday which showed mild nonocclusive coronary artery disease. This morning she states that her shortness of breath has significantly improved and she is feeling much better. Her lower extremity edema has also significantly improved today. She denies any chest pain or pressure. She denies any fever, chills, nausea, vomiting, diarrhea. She states her orthopnea has improved as well Exam Data for Last 24 hours Vital signs and Labs for Last 24 Hours: Temp Pulse Resp BP Pulse Ox O2 Del Method O2 Flow Rate 98.0 F 76 22 93/57 L 92 L Room Air 2 09/07/23 08:00 09/07/23 08:00 09/07/23 08:00 09/07/23 08:00 09/07/23 08:00 09/07/23 09:00 09/07/23 07:00 Laboratory Results - last 24 hr 09/06/23 11:14: POC Glucose 308 H* 09/06/23 15:05: WBC 8.5, RBC 4.70, Hgb 14.0, Hct 44.1, MCV 93.9, MCH 29.7, MCHC 31.6 L, RDW 14.4, Plt Count 219, MPV 7.4, Neut % (Auto) 66.9, Lymph % (Auto) 21.0, [place] % (Auto) 6.6, Eos % (Auto) 4.6, Baso % (Auto) 0.9, Neut # (Auto) 5.7, Lymph # (Auto) 1.8, [place] # (Auto) 0.6, Eos # (Auto) 0.4, Baso # (Auto) 0.1, Sodium 141, Potassium 3.5, Chloride 105, Carbon Dioxide 32 H, Anion Gap 7.5, BUN 19 H, Creatinine 1.30 H, Estimated Creat Clear 67, Estimated GFR 42 L, Est GFR ( Amer) 51 L, Glucose 78 D, Calcium 9.3 09/06/23 17:08: POC Glucose 91 09/06/23 20:00: POC Glucose 185 H 09/07/23 05:30: WBC 6.6, RBC 5.27, Hgb 15.0, Hct 50.1 H, MCV 95.1, MCH 28.4, MCH C 29.9 L, RDW 14.6, Plt Count 231, MPV 8.0, Neut % (Auto) 58.2, Lymph % (Auto) 27.6, [place] % (Auto) 6.8, Eos % (Auto) 5.9, Baso % (Auto) 1.4, Neut # (Auto) 3.8, Lymph # (Auto) 1.8, [place] # (Auto) 0.5, Eos # (Auto) 0.4, Baso # (Auto) 0.1, Sodium 139, Potassium 3.3 L, Chloride 101, Carbon Dioxide 35 H, Anion Gap 6.3, BUN 20 H, Creatinine 1.40 H, Estimated Creat Clear 63, Estimated GFR 38 L, Est GFR ( Amer) 47 L, Glucose 135 H D, POC Glucose 126 H, Calcium 9.1, Magnesium 2.6 H D, Total Bilirubin 0.9, AST 33, ALT 20, Alkaline Phosphatase 107, Total Protein 6.5, Albumin 3.3 L, Globulin 3.2, Albumin/Globulin Ratio 1.0 L, Triglycerides 118, Cholesterol 150, LDL Cholesterol Direct 90.80 L, VLDL Cholesterol 24, HDL Cholesterol 26 L, Cholesterol/HDL Ratio 5.8 H I & O for Last 24 hours: Intake & Output 09/04/23 09/05/23 09/06/23 09/07/23 23:59 23:59 23:59 23:59 Intake Total 494.103 / 494.103 515.331 / 755.331 480 / 480 Output Total 2800 / 3600 6550 / 6850 750 / 750 Balance -2305.897 / -3105.897 -6034.669 / -6094.669 -270 / -270 Weight 213 lb 13.574 oz 199 lb 15.348 oz 203 lb 1 oz Constitutional Constitutional: no acute distress and obese *Routine HEENT Exam Head: Present normocephalic and atraumatic ENT: Present mucous membranes moist *Routine Neck Exam Neck: Present supple, full ROM and normal carotid upstroke; Absent JVD, carotid bruit or lymphadenopathy *Routine Respiratory Exam Respiratory: Present rales and symmetric chest movement; Absent able to speak in complete sentences *Routine Cardiovascular Exam Cardiovascular: Present RRR, Normal S1 and Normal S2; Absent murmur or gallop *Routine Abdominal Exam Abdominal: Present soft and normoactive bowel sounds; Absent tenderness, distended or organomegaly *Routine Extremities Exam Extremities: Present edema (1+ BLE edema), full ROM, pulses intact and normal capillary refill; Absent cyanosis or clubbing *Routine Skin Exam Skin: Present intact and warm; Absent erythema *Routine Neurological Exam Neurological: Present alert, oriented X3 and CN II-XII intact; Absent sensory deficit or motor deficit Routine Psychiatric Exam Psychiatric: Present normal affect Progress Note: A&P Assessment and plan (1) Acute HFrEF (heart failure with reduced ejection fraction): Status: Acute (2) CAD in [place] artery: Status: Acute (3) Cardiomyopathy: Status: Acute (4) LV dysfunction: Status: Acute (5) Acute hypoxemic respiratory failure: Status: Acute (6) Mitral valve insufficiency: Status: Acute (7) Hypertensive emergency: Status: Acute (8) Tobacco use: Status: Chronic (9) COPD (chronic obstructive pulmonary disease): Status: Chronic (10) CVA (cerebral vascular accident): Status: Chronic (11) Newly diagnosed diabetes: Status: Acute (12) Class II obesity: Status: Acute (13) Hyperlipidemia: Status: Acute (14) Hypertension: Status: Acute (15) Aortic insufficiency: Status: Acute Assessment and Plan Assessment and Plan for All Diagnoses:: Plan: 1. The patient was admitted to the hospital with hypertensive urgency. She was initially started on nitroglycerin drip and then switched over to nitroprusside drip. Then she was started on oral lisinopril yesterday and her nitroprusside drip has been stopped. Her blood pressure has significantly improved. Will decrease her lisinopril down to 20 mg daily because she has had some lower blood pressures this morning as well with her systolic around 120 and we do not want to drop her blood pressure too quickly too fast. 2. We will start her on carvedilol 6.25 mg p.o. twice daily for better blood pressure control and for her HFrEF. She is likely out of the window for the beta-jace to cause cardiogenic shock as she has significantly diuresed overnight with a -4 L fluid balance. 3. The patient does have acute HFrEF and severe LV dysfunction. She also has severe MR. She does need aggressive diuresis. We would like to continue IV Lasix until her creatinine is 1.6 or above. Once her creatinine is 1.6 or above she can be converted over to oral Lasix with spironolactone as well. 4. The patient does have severe LV dysfunction. Her ejection fraction is 30%. Due to her severe LV dysfunction she is increased risk for sudden cardiac . Due to this increased risk of sudden cardiac the patient should have a LifeVest in place prior to discharge home. Will get her LifeVest ordered. 5. The patient does have severe mitral regurgitation. This will likely improve with aggressive diuresis. However once the patient is euvolemic if she still has persistent severe MR then she will need to be referred for consideration of mitral valve repair/replacement 6. The patient underwent left cardiac catheterization yesterday due to her new onset cardiomyopathy and she was found to have mild nonocclusive coronary artery disease. We do recommend aspirin 81 mg daily. 7. Continue Jardiance and spironolactone for her HFrEF. 8. Her blood pressure is acceptable at this time. 9. Her LDL goal is less than 55. Her LDL is 90. She has been started on a statin. 10. The patient has a hemoglobin A1c of 7.8%. She is a new onset diabetic. She has been started on Jardiance. 11. The patient does have a history of a CVA in the past. 12. We do recommend continued IV diuretics throughout the weekend and optimize her HFrEF medications through the weekend as well. Cardiology will reevaluate the patient on Sunday. Will get her LifeVest ordered however she does not have insurance so this may be an issue getting the patient a LifeVest. Thank you for the opportunity to help participate in the care of this patient. All recommendations and orders are per Dr. Carr.
[2023-09-07 11:44] LABS: POC Glucose,Bedside 93 (70-110)
[2023-09-07 12:00] VITALS: BP 155/89; PULSE 75; PULSE 83; RESP 22; TEMP 36.7; O2SAT 94
[2023-09-07] MEDS: POLYETHYLENE GLYCOL 3350 17 GM PACKET PO (12:01)
[2023-09-07] MEDS: LISINOPRIL 20MG TABLET 20 MG PO (12:02)
[2023-09-07] MEDS: SENNOSIDES 8.6MG/DOCUSATE 50MG TABLET 1 TAB PO ×2 (12:02→21:58)
[2023-09-07] MEDS: CARVEDILOL 6.25MG TABLET 6.25 MG PO ×2 (12:02→21:58)
[2023-09-07] MEDS: FUROSEMIDE 40MG/4ML VIAL 40 MG IV (15:59)
[2023-09-07 16:00] VITALS: BP 138/69; PULSE 70; PULSE 75; RESP 18; TEMP 36.6; O2SAT 99
[2023-09-07 16:22] LABS: POC Glucose,Bedside 104 (70-110)
[2023-09-07 20:00] VITALS: BP 140/88; PULSE 76; PULSE 80; RESP 15; TEMP 36.6; O2SAT 92
[2023-09-07 20:43] LABS: POC Glucose,Bedside 240 (70-110)
[2023-09-07] MEDS: ATORVASTATIN 40MG TABLET 40 MG PO (21:57)
[2023-09-07] MEDS: humaLOG 100 UNITS/ML 3ML VIAL (SSI) SQ (21:58)
[2023-09-08] VITALS (7 sets, daily range): BP systolic 116–155; BP diastolic 63–84; PULSE 60–80; RESP 16–18; TEMP 36.4–36.9; O2SAT 93–100; BMI 34.4
[2023-09-08 05:57] LABS: POC Glucose,Bedside 127 (70-110)
[2023-09-08 07:32] LABS: Basophils # 0.1 K/mm3 (0-0.2); Basophils % 1.1 % (0.1-2.0); Eosinophils # 0.4 K/mm3 (0.0-0.4); Eosinophils % 6.4 % (0.1-12.0); Hematocrit 48.1 % (37.0-47.0); Hemoglobin 14.7 g/dL (12.2-16.2); Lymphocytes # 1.9 K/mm3 (0.7-4.5); Lymphocytes % 32.1 % (10-50); Mean Corpuscular HGB Conc 30.6 g/dL (31.8-35.4); Mean Corpuscular Hemoglobin 29.4 pg (27.0-31.2); Mean Corpuscular Volume 96.2 fl (81-99); Monocytes # 0.4 K/mm3 (0.1-1.0); Neutrophils # 3.2 K/mm3 (1.8-7.8); Neutrophils % 53.3 % (37.0-80.0); Platelet Count 210 K/mm3 (142-424); Red Cell Distribution Width 14.5 % (11.5-17.5)
[2023-09-08 07:40] LABS: Chloride 104 mmol/L (98-107); Sodium 138 mmol/L (136-145)
[2023-09-08 07:41] LABS: Potassium 4.3 mmoL/L (3.5-5.1)
[2023-09-08 07:43] LABS: Alanine Aminotransferase 16 U/L (12-78); Alkaline Phosphatase 105 U/L (38-126); Aspartate Amino Transferase 26 U/L (14-36); Bilirubin,Total 0.7 mg/dl (0.2-1.3); Blood Urea Nitrogen 22 mg/dl (7-17); Creatinine Clearance Estimated 55 mL/min (50-200); Estimated Glomerular Filt Rate 33 ml/min (>60); GFR (African American) 40 ML/MIN (>60)
[2023-09-08 07:44] LABS: Albumin Level 3.1 g/dl (3.5-5.0); Albumin/Globulin Ratio 1.1 (1.1-1.8); Anion Gap 6.3 mEq/L (5-15); Calcium 9.2 mg/dl (8.4-10.2); Carbon Dioxide 32 mmol/L (22.0-30.0); Globulin 2.9 g/dL (1.3-3.2); Glucose 144 mg/dl (74-100)
[2023-09-08 07:45] LABS: Magnesium 2.4 mg/dl (1.6-2.3)
[2023-09-08 08:16] LABS: POC Glucose,Bedside 210 (70-110)
[2023-09-08] MEDS: POTASSIUM CHLORIDE 20MEQ TAB 40 MEQ PO (08:16)
[2023-09-08] MEDS: ASPIRIN EC 81MG TABLET 81 MG PO (08:17)
[2023-09-08] MEDS: FUROSEMIDE 100MG/10ML VIAL 80 MG IV (08:17)
[2023-09-08] MEDS: HEPARIN SODIUM 5,000 UNIT/ML VIAL 5000 UNIT SQ ×2 (08:17→21:45)
[2023-09-08] MEDS: LISINOPRIL 20MG TABLET 20 MG PO (08:17)
[2023-09-08] MEDS: EMPAGLIFLOZIN 10MG TABLET 10 MG PO (08:17)
[2023-09-08] MEDS: SENNOSIDES 8.6MG/DOCUSATE 50MG TABLET 1 TAB PO ×2 (08:17→21:45)
[2023-09-08] MEDS: SPIRONOLACTONE 25MG TABLET 25 MG PO (08:17)
[2023-09-08] MEDS: CARVEDILOL 6.25MG TABLET 6.25 MG PO (08:17)
[2023-09-08] MEDS: NICOTINE 14MG/24HRS PATCH 14 MG TD (10:32)
[2023-09-08] MEDS: METFORMIN 500MG TABLET 500 MG PO ×2 (10:32→17:18)
[2023-09-08 10:43] LABS: POC Glucose,Bedside 153 (70-110)
--- NOTE | 2023-09-08 12:12 | EXP.ACUTE.PN ---
Subjective *Date: 09/08/23 *Time: 12:22 Interval history: Patient slept well overnight. Reports being dizzy this morning. Became dizzy last night some but is more so this morning. No falls. No syncope. Blood pressure appropriate with systolic 1 30-1 40. Diastolic in the 80s. Heart rate in the 60s this morning. On room air. No nausea or vomiting. Ambulating to the bathroom with her walker. Of note, beta-jace was initiated yesterday afternoon. Medical Exam Vital signs and Labs for Last 24 Hours: Vital Signs Temp Pulse Pulse Resp BP Pulse Ox O2 Del Method 09/08/23 11:00 Room Air 09/08/23 09:48 63 141/83 H 99 Room Air 09/08/23 09:00 Room Air 09/08/23 08:00 Room Air 09/08/23 08:00 98.0 F 66 18 131/74 94 L Room Air 09/08/23 08:00 80 09/08/23 04:00 97.6 F 67 16 139/69 93 L Room Air 09/08/23 04:00 70 09/08/23 00:00 97.9 F 72 16 116/63 94 L Room Air 09/07/23 20:00 Room Air 09/07/23 20:00 80 09/07/23 20:00 97.9 F 76 15 140/88 92 L Room Air 09/07/23 18:08 Room Air 09/07/23 17:00 Room Air 09/07/23 16:00 75 09/07/23 16:00 98 F 70 18 138/69 99 Room Air 09/07/23 15:00 Room Air 09/07/23 13:00 Room Air Intake and Output 09/07/23 09/08/23 09/08/23 23:59 07:59 15:59 Intake Total 360 / 1470 240 / 240 Output Total 0 / 1750 Balance 360 / -280 240 / 240 Intake: Intake, Oral Amount 360 / 1470 240 / 240 Output: Output, Urine Amount 0 / 1750 Other: Number of Voids 0 2 Number of Unmeasured Voids 2 Weight 91.535 kg Patient Weight 09/08/23 23:59 Weight 91.535 kg Laboratory Results - last 24 hr 09/07/23 15:57: POC Glucose 104 09/07/23 20:12: POC Glucose 240 H 09/08/23 05:48: POC Glucose 127 H 09/08/23 07:06: WBC 6.0, RBC 5.00, Hgb 14.7, Hct 48.1 H, MCV 96.2, MCH 29.4, MCHC 30.6 L, RDW 14.5, Plt Count 210, MPV 8.0, Neut % (Auto) 53.3, Lymph % (Auto) 32.1, [place] % (Auto) 7.0, Eos % (Auto) 6.4, Baso % (Auto) 1.1, Neut # (Auto) 3.2, Lymph # (Auto) 1.9, [place] # (Auto) 0.4, Eos # (Auto) 0.4, Baso # (Auto) 0.1, Sodium 138, Potassium 4.3 D, Chloride 104, Carbon Dioxide 32 H, Anion Gap 6.3, BUN 22 H, Creatinine 1.60 H, Estimated Creat Clear 55, Estimated GFR 33 L, Est GFR ( Amer) 40 L, Glucose 144 H, Calcium 9.2, Magnesium 2.4 H, Total Bilirubin 0.7, AST 26, ALT 16, Alkaline Phosphatase 105, Total Protein 6.0 L, Albumin 3.1 L, Globulin 2.9, Albumin/Globulin Ratio 1.1 09/08/23 08:08: POC Glucose 210 H 09/08/23 10:34: POC Glucose 153 H I & O for Labs for Last 24 Hours: Intake & Output 09/05/23 09/06/23 09/07/23 09/08/23 23:59 23:59 23:59 23:59 Intake Total 494.103 / 494.103 515.331 / 078.328 1543 / 1470 240 / 240 Output Total 2800 / 3600 6550 / 6850 1750 / 1750 Balance -2305.897 / -3105.897 -6034.669 / -6094.669 -520 / -280 240 / 240 Weight 97 kg 90.7 kg 92.108 kg 91.535 kg Constitutional: Present no acute distress, obese, chronically ill appearing and cooperative Head: Present atraumatic and normocephalic ENT: Present normal exam Neck: Present normal inspection Respiratory: Present crackles (Minimal in bilateral bases) and normal respiratory effort; Absent rhonchi or wheezes Cardiac: Present Reg Rate and Rhythm and Audible Murmur GI: Present soft and normal bowel sounds; Absent distention or tenderness Extremities: Present normal inspection, full ROM and edema (Improving edema, 1+ on exam today.) Skin: Present intact and dry; Absent cyanosis or erythema Neuro: Present Grossly Intact, alert, awake, oriented x 3 and moves all extremities Assessment and Plan *Assessment and plan (1) Acute HFrEF (heart failure with reduced ejection fraction): Status: Acute Category: Medical Code(s): I50.21 - Acute systolic (congestive) heart failure (2) Cardiomyopathy: Status: Acute Qualifiers: Cardiomyopathy type: unspecified Qualified Code(s): I42.9 - Cardiomyopathy, unspecified Category: Medical Code(s): I42.9 - Cardiomyopathy, unspecified (3) Acute hypoxemic respiratory failure: Status: Acute Category: Medical Code(s): J96.01 - Acute respiratory failure with hypoxia (4) Mitral valve insufficiency: Status: Acute Qualifiers: Cardiac valve disease etiology: etiology unspecified Qualified Code(s): I34.0 - Nonrheumatic mitral (valve) insufficiency Category: Medical Code(s): I34.0 - Nonrheumatic mitral (valve) insufficiency (5) Hypertensive emergency: Status: Acute Category: Medical Code(s): I16.1 - Hypertensive emergency (6) Tobacco use: Status: Chronic Category: Social Hx Code(s): Z72.0 - Tobacco use (7) COPD (chronic obstructive pulmonary disease): Status: Chronic Qualifiers: COPD type: unspecified COPD Qualified Code(s): J44.9 - Chronic obstructive pulmonary disease, unspecified Category: Medical Code(s): J44.9 - Chronic obstructive pulmonary disease, unspecified (8) CVA (cerebral vascular accident): Status: Chronic Qualifiers: CVA mechanism: unspecified Qualified Code(s): I63.9 - Cerebral infarction, unspecified Category: Medical Code(s): I63.9 - Cerebral infarction, unspecified (9) Newly diagnosed diabetes: Status: Acute Category: Medical Code(s): E11.9 - Type 2 diabetes mellitus without complications (10) Class II obesity: Status: Acute Category: Medical Code(s): E66.9 - Obesity, unspecified (11) Hypokalemia: Status: Acute Category: Medical Code(s): E87.6 - Hypokalemia (12) CAD in [place] artery: Status: Acute Category: Medical Code(s): I25.10 - Atherosclerotic heart disease of [place] coronary artery without angina pectoris (13) Bilateral lower extremity edema: Status: Acute Category: Medical Code(s): R60.0 - Localized edema Plan 58-year-old female with poor follow-up over the past 2 years. History of CVA and hypertension. Presented to the ER with dizziness. Found to have malignant hypertension, volume overload, concerning for acute CHF with new oxygen requirement. Initiated on diuresis and nitroprusside drip for hypertension. Discussed case with ER, request admission for further management of her hypertension and cardiology evaluation. Medicine agreed to admit for further management. Cardiology evaluating today. Patient taken for left heart cath. Has new diagnosis of heart failure with reduced ejection fraction. Medication adjustments as below. Continues to require inpatient management. Problems addressed as follows: Malignant hypertension Acute failure with reduced ejection fraction Acute heart failure with reduced ejection fraction -Continues to diurese well. Will transition from IV to oral Lasix today with 40 mg p.o. twice daily. Continue spironolactone 25 mg daily. -Creatinine 1.6 today, repeat BMP this afternoon and CMP in the morning ordered. -Carvedilol added yesterday at 6.25 mg twice daily. Patient dizzy this morning, concern is due to her heart rate being in the 60s. Will decrease carvedilol to 3.125 mg twice daily. -Continue lisinopril 20 mg daily. -EF 30% on echo. - Continue Jardiance 10 mg daily New diagnosis of diabetes -A1c 7.8. No known history. Jardiance as above. Initiated on sliding scale insulin with fingersticks ACHS. Only received 4 units sliding scale insulin yesterday. Will initiate metformin 500 mg twice daily. SASHA over CKD Hypokalemia - Potassium 4.3 this morning. Will discontinue potassium repletion with the initiation of spironolactone above. Magnesium 2.4. No replacements today. - Repeat CBC, CMP, magnesium ordered for the morning. Caution with nephrotoxins. Close monitoring with diuresis as above Tobacco use disorder: Nicotine patch 14 mg daily as needed. Full code Heparin subcu twice daily Cardiac diet
[2023-09-08] MEDS: FUROSEMIDE 40 MG TABLET PO (17:21)
[2023-09-08 18:24] LABS: Chloride 103 mmol/L (98-107); Potassium 5.8 mmoL/L (3.5-5.1); Sodium 136 mmol/L (136-145)
[2023-09-08 18:27] LABS: Anion Gap 11.8 mEq/L (5-15); Blood Urea Nitrogen 31 mg/dl (7-17); Carbon Dioxide 27 mmol/L (22.0-30.0); Creatinine Clearance Estimated 44 mL/min (50-200); Estimated Glomerular Filt Rate 26 ml/min (>60); GFR (African American) 31 ML/MIN (>60)
[2023-09-08 18:28] LABS: Calcium 10.5 mg/dl (8.4-10.2); Glucose 150 mg/dl (74-100)
[2023-09-08] MEDS: LACTATED RINGERS 1000ML 1,000 ML 125 ML IV (18:45)
[2023-09-08] MEDS: CARVEDILOL 3.125MG TABLET 3.125 MG PO (21:45)
[2023-09-08] MEDS: ATORVASTATIN 40MG TABLET 40 MG PO (21:45)
[2023-09-08 22:25] LABS: POC Glucose,Bedside 156 (70-110)
[2023-09-08] MEDS: humaLOG 100 UNITS/ML 3ML VIAL (SSI) SQ (22:27)
[2023-09-09] VITALS: BP 140/73; PULSE 76; PULSE 83; RESP 16; TEMP 36.7; O2SAT 96
[2023-09-09 04:00] VITALS: BP 141/81; PULSE 70; PULSE 71; RESP 16; TEMP 36.6; O2SAT 98; BMI 32.7
[2023-09-09] MEDS: METFORMIN 500MG TABLET 500 MG PO ×2 (07:01→17:37)
[2023-09-09 07:28] LABS: Chloride 101 mmol/L (98-107); Sodium 135 mmol/L (136-145)
[2023-09-09 07:30] LABS: Alanine Aminotransferase 20 U/L (12-78); Aspartate Amino Transferase 36 U/L (14-36); Basophils # 0.1 K/mm3 (0-0.2); Blood Urea Nitrogen 31 mg/dl (7-17); Creatinine Clearance Estimated 46 mL/min (50-200); Eosinophils # 0.4 K/mm3 (0.0-0.4); Estimated Glomerular Filt Rate 29 ml/min (>60); GFR (African American) 35 ML/MIN (>60); Hematocrit 52.4 % (37.0-47.0); Lymphocytes # 1.7 K/mm3 (0.7-4.5); Monocytes # 0.5 K/mm3 (0.1-1.0); Monocytes % 7.6 % (1.7-9.3); Red Blood Count 5.47 M/mm3 (4.20-5.40)
[2023-09-09 07:31] LABS: Albumin Level 3.5 g/dl (3.5-5.0); Alkaline Phosphatase 125 U/L (38-126); Bilirubin,Total 0.7 mg/dl (0.2-1.3); Calcium 9.6 mg/dl (8.4-10.2); Carbon Dioxide 31 mmol/L (22.0-30.0); Globulin 3.4 g/dL (1.3-3.2); Glucose 168 mg/dl (74-100); Total Protein,Serum 6.9 g/dl (6.3-8.2)
[2023-09-09 07:39] LABS: Basophils % 1.3 % (0.1-2.0); Eosinophils % 6.3 % (0.1-12.0); Lymphocytes % 25.1 % (10-50); Mean Corpuscular HGB Conc 30.9 g/dL (31.8-35.4); Mean Corpuscular Hemoglobin 29.6 pg (27.0-31.2); Mean Corpuscular Volume 95.9 fl (81-99); Mean Platelet Volume 7.5 fl (7.4-10.4); Neutrophils # 4.1 K/mm3 (1.8-7.8); Neutrophils % 59.7 % (37.0-80.0); Platelet Count 230 K/mm3 (142-424); Red Cell Distribution Width 14.4 % (11.5-17.5); White Blood Count 6.9 K/mm3 (4.8-10.8)
[2023-09-09 07:59] LABS: Magnesium 2.1 mg/dl (1.6-2.3)
[2023-09-09 08:00] VITALS: BP 148/89; PULSE 75; RESP 16; TEMP 36.8; O2SAT 98
[2023-09-09 08:13] LABS: Hemoglobin 16.2 g/dL (12.2-16.2)
[2023-09-09] MEDS: EMPAGLIFLOZIN 10MG TABLET 10 MG PO (08:26)
[2023-09-09] MEDS: CARVEDILOL 3.125MG TABLET 3.125 MG PO (08:26)
[2023-09-09] MEDS: ASPIRIN EC 81MG TABLET 81 MG PO (08:26)
[2023-09-09] MEDS: HEPARIN SODIUM 5,000 UNIT/ML VIAL 5000 UNIT SQ ×2 (08:26→21:20)
[2023-09-09] MEDS: SENNOSIDES 8.6MG/DOCUSATE 50MG TABLET 1 TAB PO ×2 (08:26→21:20)
[2023-09-09] MEDS: SPIRONOLACTONE 25MG TABLET 25 MG PO (08:27)
[2023-09-09] MEDS: LISINOPRIL 10MG TABLET 10 MG PO (08:29)
[2023-09-09] MEDS: NICOTINE 14MG/24HRS PATCH 14 MG TD (08:35)
[2023-09-09 12:00] VITALS: BP 140/73; PULSE 69; PULSE 70; RESP 14; TEMP 36.7; O2SAT 92
--- NOTE | 2023-09-09 13:46 | P.PN_ITS ---
Subjective *Date: 09/09/23 *Time: 14:15 Interval history: Patient ambulating with walker. Stable on room air. No chest pain or shortness of breath. Cramping improving. Tolerating p.o. intake. No dizziness per report today. Medical Exam Vital signs and Labs for Last 24 Hours: Vital Signs Temp Pulse Pulse Resp BP Pulse Ox O2 Del Method 09/09/23 12:00 70 09/09/23 12:00 98.1 F 69 14 140/73 92 L Room Air 09/09/23 11:00 Room Air 09/09/23 09:00 Room Air 09/09/23 08:00 Room Air 09/09/23 08:00 98.2 F 75 16 148/89 H 98 Room Air 09/09/23 08:00 75 09/09/23 07:00 Room Air 09/09/23 04:59 Nasal Cannula 09/09/23 04:00 70 09/09/23 04:00 97.8 F 71 16 141/81 H 98 09/09/23 03:00 Nasal Cannula 09/09/23 01:00 Room Air 09/09/23 00:00 83 09/09/23 00:00 98.1 F 76 16 140/73 96 Room Air 09/08/23 23:00 Room Air 09/08/23 21:00 Room Air 09/08/23 20:00 Room Air 09/08/23 20:00 71 09/08/23 20:00 98.4 F 79 16 155/82 H 100 Room Air 09/08/23 18:27 Room Air 09/08/23 17:00 Room Air 09/08/23 16:00 98.3 F 69 18 143/84 H 98 Room Air 09/08/23 16:00 65 09/08/23 15:00 Room Air O2 Flow Rate 09/09/23 12:00 09/09/23 12:00 09/09/23 11:00 09/09/23 09:00 09/09/23 08:00 09/09/23 08:00 09/09/23 08:00 09/09/23 07:00 09/09/23 04:59 2 09/09/23 04:00 09/09/23 04:00 09/09/23 03:00 2 09/09/23 01:00 09/09/23 00:00 09/09/23 00:00 09/08/23 23:00 09/08/23 21:00 09/08/23 20:00 09/08/23 20:00 09/08/23 20:00 09/08/23 18:27 09/08/23 17:00 09/08/23 16:00 09/08/23 16:00 09/08/23 15:00 Intake and Output 09/08/23 09/09/23 09/09/23 23:59 07:59 15:59 Intake Total 360 / 910 550 / 910 Output Total 0 / 0 0 / 0 Balance 0 / 1080 360 / 910 550 / 910 Intake: Intake, Oral Amount 360 / 910 550 / 910 Output: Output, Urine Amount 0 / 0 0 / 0 Other: Number of Voids 2 Number of Unmeasured Voids 1 1 Number of Bowel Movements 1 Weight 86.954 kg Patient Weight 09/09/23 23:59 Weight 86.954 kg Laboratory Results - last 24 hr 09/08/23 17:25: Sodium 136, Potassium 5.8 H D, Chloride 103, Carbon Dioxide 27, Anion Gap 11.8, BUN 31 H D, Creatinine 2.00 H D, Estimated Creat Clear 44, Estimated GFR 26 L, Est GFR ( Amer) 31 L D, Glucose 150 H, Calcium 10.5 H 09/08/23 22:04: POC Glucose 156 H 09/09/23 06:55: WBC 6.9, RBC 5.47 H, Hgb 16.2 D, Hct 52.4 H, MCV 95.9, MCH 29.6, MCHC 30.9 L, RDW 14.4, Plt Count 230, MPV 7.5, Neut % (Auto) 59.7, Lymph % (Auto) 25.1, [place] % (Auto) 7.6, Eos % (Auto) 6.3, Baso % (Auto) 1.3, Neut # (Auto) 4.1, Lymph # (Auto) 1.7, [place] # (Auto) 0.5, Eos # (Auto) 0.4, Baso # (Auto) 0.1, Sodium 135 L, Potassium 4.0 D, Chloride 101, Carbon Dioxide 31 H, Anion Gap 7.0, BUN 31 H, Creatinine 1.80 H, Estimated Creat Clear 46, Estimated GFR 29 L, Est GFR ( Amer) 35 L, Glucose 168 H, Calcium 9.6, Magnesium 2.1 D, Total Bilirubin 0.7, AST 36 D, ALT 20, Alkaline Phosphatase 125, Total Protein 6.9, Albumin 3.5 D, Globulin 3.4 H, Albumin/Globulin Ratio 1.0 L I & O for Labs for Last 24 Hours: Intake & Output 09/06/23 09/07/23 09/08/23 09/09/23 23:59 23:59 23:59 23:59 Intake Total 515.331 / 343.091 2508 / 1470 720 / 1080 910 / 910 Output Total 6550 / 6850 1750 / 1750 0 / 0 0 / 0 Balance -6034.669 / -6094.669 -520 / -280 720 / 1080 910 / 910 Weight 90.7 kg 92.108 kg 91.535 kg 86.954 kg Constitutional: Present no acute distress, obese, chronically ill appearing and cooperative Head: Present atraumatic and normocephalic ENT: Present normal exam Neck: Present normal inspection Respiratory: Present normal respiratory effort; Absent rhonchi, wheezes or c rackles Cardiac: Present Reg Rate and Rhythm and Audible Murmur GI: Present soft and normal bowel sounds; Absent distention or tenderness Extremities: Present normal inspection, full ROM and edema (Trace) Skin: Present intact and dry; Absent cyanosis or erythema Neuro: Present Grossly Intact, alert, awake, oriented x 3 and moves all extremities Assessment and Plan *Assessment and plan (1) Acute HFrEF (heart failure with reduced ejection fraction): Status: Acute Category: Medical Code(s): I50.21 - Acute systolic (congestive) heart failure (2) Cardiomyopathy: Status: Acute Qualifiers: Cardiomyopathy type: unspecified Qualified Code(s): I42.9 - Cardiomyopathy, unspecified Category: Medical Code(s): I42.9 - Cardiomyopathy, unspecified (3) Acute hypoxemic respiratory failure: Status: Acute Category: Medical Code(s): J96.01 - Acute respiratory failure with hypoxia (4) Mitral valve insufficiency: Status: Acute Qualifiers: Cardiac valve disease etiology: etiology unspecified Qualified Code(s): I34.0 - Nonrheumatic mitral (valve) insufficiency Category: Medical Code(s): I34.0 - Nonrheumatic mitral (valve) insufficiency (5) Hypertensive emergency: Status: Acute Category: Medical Code(s): I16.1 - Hypertensive emergency (6) Tobacco use: Status: Chronic Category: Social Hx Code(s): Z72.0 - Tobacco use (7) COPD (chronic obstructive pulmonary disease): Status: Chronic Qualifiers: COPD type: unspecified COPD Qualified Code(s): J44.9 - Chronic obstructive pulmonary disease, unspecified Category: Medical Code(s): J44.9 - Chronic obstructive pulmonary disease, unspecified (8) CVA (cerebral vascular accident): Status: Chronic Qualifiers: CVA mechanism: unspecified Qualified Code(s): I63.9 - Cerebral infarction, unspecified Category: Medical Code(s): I63.9 - Cerebral infarction, unspecified (9) Newly diagnosed diabetes: Status: Acute Category: Medical Code(s): E11.9 - Type 2 diabetes mellitus without complications (10) Class II obesity: Status: Acute Category: Medical Code(s): E66.9 - Obesity, unspecified (11) Hypokalemia: Status: Acute Category: Medical Code(s): E87.6 - Hypokalemia (12) CAD in [place] artery: Status: Acute Category: Medical Code(s): I25.10 - Atherosclerotic heart disease of [place] coronary artery without angina pectoris (13) Bilateral lower extremity edema: Status: Acute Category: Medical Code(s): R60.0 - Localized edema Plan 58-year-old female with poor follow-up over the past 2 years. History of CVA and hypertension. Presented to the ER with dizziness. Found to have malignant hypertension, volume overload, concerning for acute CHF with new oxygen requirement. Initiated on diuresis and nitroprusside drip for hypertension. Discussed case with ER, request admission for further management of her hypertension and cardiology evaluation. Medicine agreed to admit for further management. Cardiology assisting with care. Has new diagnosis of heart failure with reduced ejection fraction. Medication adjustments as below. Continues to require inpatient management, anticipate discharge tomorrow. Problems addressed as follows: Malignant hypertension Acute failure with reduced ejection fraction Acute heart failure with reduced ejection fraction -Continues to diurese well. Continue Lasix 40 mg once daily. Continue spironolactone 25 mg daily. -Creatinine 1.6 today, repeat BMP this afternoon and CMP in the morning ordered. -Increase carvedilol to 6.25 as her dizziness has resolved. -Lisinopril decreased to 10 mg daily due to SASHA. Will consider increasing back to 20 tomorrow if systolics remain greater than 130. -EF 30% on echo. - Continue Jardiance 10 mg daily New diagnosis of diabetes -A1c 7.8. No known history. Jardiance as above. Initiated on sliding scale insulin with fingersticks ACHS. Only received 2 units sliding scale insulin yesterday. metformin 500 mg twice daily. SASHA over CKD Hypokalemia - Potassium 4.0 this morning. Magnesium 2.1. No replacements today. - Repeat CBC, CMP, magnesium ordered for the morning. BMP ordered for the afternoon given SASHA. -Creatinine 1.8, BUN 31. Close monitoring with diuresis as above Tobacco use disorder: Nicotine patch 14 mg daily as needed. Full code Heparin subcu twice daily Cardiac diet
[2023-09-09 16:00] VITALS: BP 153/80; PULSE 68; PULSE 75; RESP 17; TEMP 36.8; O2SAT 94
[2023-09-09 18:53] LABS: Chloride 102 mmol/L (98-107); Sodium 137 mmol/L (136-145)
[2023-09-09 18:54] LABS: Potassium 4.6 mmoL/L (3.5-5.1)
[2023-09-09 18:57] LABS: Anion Gap 12.6 mEq/L (5-15); Blood Urea Nitrogen 34 mg/dl (7-17); Calcium 10.3 mg/dl (8.4-10.2); Carbon Dioxide 27 mmol/L (22.0-30.0); Creatinine Clearance Estimated 42 mL/min (50-200); Estimated Glomerular Filt Rate 26 ml/min (>60); GFR (African American) 31 ML/MIN (>60); Glucose 141 mg/dl (74-100)
[2023-09-09 20:00] VITALS: BP 146/72; PULSE 74; PULSE 78; RESP 16; TEMP 36.9; O2SAT 96
[2023-09-09] MEDS: ATORVASTATIN 40MG TABLET 40 MG PO (21:20)
[2023-09-09] MEDS: CARVEDILOL 6.25MG TABLET 6.25 MG PO (21:20)
[2023-09-09 22:59] LABS: POC Glucose,Bedside 129 (70-110)
[2023-09-09 22:59] LABS: POC Glucose,Bedside 155 (70-110)
[2023-09-09 22:59] LABS: POC Glucose,Bedside 135 (70-110)
[2023-09-09 22:59] LABS: POC Glucose,Bedside 142 (70-110)
[2023-09-10] VITALS: BP 148/77; PULSE 73; PULSE 78; RESP 16; TEMP 36.8; O2SAT 93
[2023-09-10 04:00] VITALS: BP 146/65; PULSE 67; PULSE 72; RESP 16; TEMP 36.7; O2SAT 97; BMI 33.7
[2023-09-10 06:29] LABS: POC Glucose,Bedside 167 (70-110)
[2023-09-10] MEDS: humaLOG 100 UNITS/ML 3ML VIAL (SSI) SQ (06:44)
[2023-09-10] MEDS: METFORMIN 500MG TABLET 500 MG PO (06:44)
[2023-09-10 06:47] LABS: Chloride 103 mmol/L (98-107); Potassium 3.8 mmoL/L (3.5-5.1); Sodium 134 mmol/L (136-145)
[2023-09-10 06:49] LABS: Blood Urea Nitrogen 30 mg/dl (7-17); Creatinine Clearance Estimated 50 mL/min (50-200); Estimated Glomerular Filt Rate 31 ml/min (>60); GFR (African American) 37 ML/MIN (>60)
[2023-09-10 06:50] LABS: Alanine Aminotransferase 25 U/L (12-78); Albumin Level 3.5 g/dl (3.5-5.0); Alkaline Phosphatase 144 U/L (38-126); Anion Gap 8.8 mEq/L (5-15); Aspartate Amino Transferase 45 U/L (14-36); Bilirubin,Total 0.6 mg/dl (0.2-1.3); Calcium 9.7 mg/dl (8.4-10.2); Carbon Dioxide 26 mmol/L (22.0-30.0); Globulin 3.4 g/dL (1.3-3.2); Glucose 168 mg/dl (74-100); Magnesium 2.2 mg/dl (1.6-2.3); Total Protein,Serum 6.9 g/dl (6.3-8.2)
[2023-09-10 08:00] VITALS: BP 134/77; PULSE 70; PULSE 71; RESP 17; TEMP 36.8; O2SAT 94
[2023-09-10 08:29] LABS: Basophils # 0.1 K/mm3 (0-0.2); Basophils % 1.5 % (0.1-2.0); Eosinophils # 0.4 K/mm3 (0.0-0.4); Eosinophils % 7.2 % (0.1-12.0); Hemoglobin 16.1 g/dL (12.2-16.2); Lymphocytes # 1.9 K/mm3 (0.7-4.5); Mean Corpuscular HGB Conc 30.5 g/dL (31.8-35.4); Mean Platelet Volume 7.8 fl (7.4-10.4); Monocytes # 0.4 K/mm3 (0.1-1.0); Monocytes % 6.3 % (1.7-9.3); Neutrophils # 3.4 K/mm3 (1.8-7.8); Neutrophils % 54.9 % (37.0-80.0); Platelet Count 236 K/mm3 (142-424); Red Blood Count 5.58 M/mm3 (4.20-5.40); Red Cell Distribution Width 14.1 % (11.5-17.5); White Blood Count 6.2 K/mm3 (4.8-10.8)
--- NOTE | 2023-09-10 09:16 | DIET.NUTRFU ---
RD consulted for diabetic/cardiac instruction, spoke to patient and daughter about diet changes, sugar substitutes and reviewed handouts provided on Sunday. Sunday she received handouts on carbohydrate counting and cardiac recommendations along with label reading. Daughter indicated she would would help with grocery shopping. She is following with [facility] for PCP, encouraged to consult dietitian if need further assistance.
[2023-09-10] MEDS: SENNOSIDES 8.6MG/DOCUSATE 50MG TABLET 1 TAB PO (09:57)
[2023-09-10] MEDS: HEPARIN SODIUM 5,000 UNIT/ML VIAL 5000 UNIT SQ (09:57)
[2023-09-10] MEDS: ASPIRIN EC 81MG TABLET 81 MG PO (09:57)
[2023-09-10] MEDS: SPIRONOLACTONE 25MG TABLET 25 MG PO (09:57)
[2023-09-10] MEDS: EMPAGLIFLOZIN 10MG TABLET 10 MG PO (09:58)
[2023-09-10] MEDS: LISINOPRIL 20MG TABLET 20 MG PO (09:58)
[2023-09-10] MEDS: CARVEDILOL 6.25MG TABLET 6.25 MG PO (10:01)
--- NOTE | 2023-09-10 10:40 | P.PN_ITS ---
Subjective Subjective Date: 09/10/23 Time: 10:40 Principal diagnosis: acute HFrEF, malignant HTN Interval history: Stable over the weekend. Her blood pressures are 130s. She is diuresed appropriately and tolerating medications well. She is agreeable to discharge home and will have LifeVest placement at home later today. We have given her information on applying for Medicaid Stressed the importance of this. Exam Data for Last 24 hours Vital signs and Labs for Last 24 Hours: Temp Pulse Resp BP Pulse Ox O2 Del Method O2 Flow Rate 98.3 F 71 17 134/77 94 L Room Air 2 09/10/23 08:00 09/10/23 08:00 09/10/23 08:00 09/10/23 08:00 09/10/23 08:00 09/10/23 09:00 09/09/23 04:59 Laboratory Results - last 24 hr 09/09/23 07:05: POC Glucose 142 H 09/09/23 11:27: POC Glucose 155 H 09/09/23 16:23: POC Glucose 129 H 09/09/23 18:15: Sodium 137, Potassium 4.6, Chloride 102, Carbon Dioxide 27, Anion Gap 12.6, BUN 34 H, Creatinine 2.00 H, Estimated Creat Clear 42, Estimated GFR 26 L, Est GFR ( Amer) 31 L, Glucose 141 H, Calcium 10.3 H 09/09/23 21:29: POC Glucose 135 H 09/10/23 05:52: WBC 6.2, RBC 5.58 H, Hgb 16.1, Hct 53.0 H, MCV 95.0, MCH 29.0, MCHC 30.5 L, RDW 14.1, Plt Count 236, MPV 7.8, Neut % (Auto) 54.9, Lymph % (Auto) 30.0, [place] % (Auto) 6.3, Eos % (Auto) 7.2, Baso % (Auto) 1.5, Neut # (Auto) 3.4, Lymph # (Auto) 1.9, [place] # (Auto) 0.4, Eos # (Auto) 0.4, Baso # (Auto) 0.1, Sodium 134 L, Potassium 3.8, Chloride 103, Carbon Dioxide 26, Anion Gap 8.8, BUN 30 H, Creatinine 1.70 H, Estimated Creat Clear 50, Estimated GFR 31 L, Est GFR ( Amer) 37 L, Glucose 168 H, Calcium 9.7, Magnesium 2.2, Total Bilirubin 0.6, AST 45 H, ALT 25, Alkaline Phosphatase 144 H, Total Protein 6.9, Albumin 3.5, Globulin 3.4 H, Albumin/Globulin Ratio 1.0 L 09/10/23 06:15: POC Glucose 167 H I & O for Last 24 hours: Intake & Output 09/07/23 09/08/23 09/09/23 09/10/23 23:59 23:59 23:59 23:59 Intake Total 1230 / 1470 720 / 1080 1180 / 1660 840 / 840 Output Total 1750 / 1750 0 / 0 0 / 0 0 / 0 Balance -520 / -280 720 / 1080 1180 / 1660 840 / 840 Weight 203 lb 1 oz 201 lb 12.8 oz 191 lb 11.2 oz 197 lb 8 oz Constitutional Constitutional: no acute distress and cooperative *Routine HEENT Exam Eye: Present PERRL *Routine Respiratory Exam Respiratory: Present CTA bilaterally; Absent accessory muscle use, wheezes or crackles *Routine Cardiovascular Exam Cardiovascular: Present RRR, Normal S1 and Normal S2; Absent murmur, gallop or rubs *Routine Abdominal Exam Abdominal: Present soft; Absent tenderness *Routine Extremities Exam Extremities: Present pulses intact; Absent cyanosis or edema *Routine Skin Exam Skin: Present intact; Absent erythema or wounds *Routine Neurological Exam Neurological: Present alert and oriented X3 Routine Psychiatric Exam Psychiatric: Present cooperative Progress Note: A&P Assessment and plan (1) Acute HFrEF (heart failure with reduced ejection fraction): Status: Acute (2) Cardiomyopathy: Status: Acute (3) Acute hypoxemic respiratory failure: Status: Acute (4) Mitral valve insufficiency: Status: Acute (5) Hypertensive emergency: Status: Acute (6) Tobacco use: Status: Chronic (7) COPD (chronic obstructive pulmonary disease): Status: Chronic (8) CVA (cerebral vascular accident): Status: Chronic (9) Newly diagnosed diabetes: Status: Acute (10) Class II obesity: Status: Acute (11) Hypokalemia: Status: Acute (12) CAD in [place] artery: Status: Acute (13) Bilateral lower extremity edema: Status: Acute Assessment and Plan Assessment and Plan for All Diagnoses:: HFrEF, presumed hypertensive cardiomyopathy -New diagnosis this admission with EF 30% in the setting of uncontrolled high blood pressure -Left heart cath, nonobstructive disease -Patient has diuresed well, currently at dry weight -She will be discharged home on Coreg, lisinopril, Aldactone. -No insurance so she cannot use Entresto. We have provided Farxiga samples from the office. -LifeVest placement will occur at her home later today Hypertension, malignant -Uncontrolled for years due to lack of insurance -Patient agreeable to compliance, meds as outlined above Diabetes mellitus, type II -New diagnosis this admission with A1c 7.8 -Continue Farxiga, further glucose management per primary service Tobacco use -Continue transdermal nicotine Renal insufficiency -Baseline unknown, likely has CKD due to high blood pressure and diabetes -Stable, continue to monitor with labs outpatient *No events over the weekend, CV stable for discharge home with plans as outlined above. She needs follow-up in our clinic in 2 weeks.
--- NOTE | 2023-09-10 11:01 | HMH.PHAINT1 ---
Pharmacy Intervention Comments: DISCHARGE MEDICATION COUNSELING PROVIDED TO PATIENT AND FAMILY MEMBER FOR ALL NEW MEDICATIONS ON INDICATION, DOSE, AND POSSIBLE SIDE EFFECTS. PATIENT AND FAMILY MEMBER VERBALIZED UNDERSTANDING WITH NO QUESTIONS.
--- NOTE | 2023-09-10 18:52 | P.DS_ITS ---
General Admission date:: 09/05/23 Discharge date: 09/10/23 HPI HPI HPI: Ms. Graham is a 58-year-old female with no significant medical care over the past 2 to 4 years. She presented to PCP office today for the initial evaluation of weakness and dizziness. States she has been gaining weight with swelling in her legs over the past week or so. History of stroke 4 years ago and was hypertensive. On medication until about 2 years ago but has had no meds since then. Reports having worsening shortness of breath over the past 2 to 3 months. Is dyspneic at rest. Has not had any insurance since her stroke due to inability to work and has fallen out of routine care with the healthcare system. On no medications at this time. Has been having some pain in her left chest. Workup in the ER initiated with chest imaging and labs. Concerning for acute heart failure with elevated BNP, elevated creatinine concerning for SASHA versus CKD. Oxygen requirement. Patient volume overloaded. Malignant hypertension with systolic above 200 and diastolic above 100. Was initiated on nitroglycerin drip. Cardiology was consulted and case was discussed with Dr. Cespedes. Recommended transitioning nitroprusside. Medicine consulted for admission. On my evaluation, patient is feeling somewhat better. Diuresing well and has had at least 5 episodes of urine output. Denies any fever, nausea, vomiting, diarrhea. Able to speak in complete sentences. States she is feeling somewhat better since having increased urine output. No dizziness at this time. Does have residual left-sided deficits from her stroke with weakness and numbness. Able to ambulate independently however. Reports she used to be a heavy smoker up to 4 packs a day until her stroke. Has gradually weaned down to approximately a pack a week at this point. No known history of diabetes. Hospital Course Hospital Course Hospital Course: 58-year-old female with poor follow-up over the past 2 years. History of CVA and hypertension. Presented to the ER with dizziness. Found to have malignant hypertension, volume overload, concerning for acute CHF with new oxygen requirement. Initiated on diuresis and nitroprusside drip for hypertension. Discussed case with ER, request admission for further management of her hypertension and cardiology evaluation. Medicine agreed to admit for further management. Cardiology assisting with care. Has new diagnosis of heart failure with reduced ejection fraction. Gradually responded to diuresis and initiation of goal-directed therapy for heart failure. Improved clinically and tolerating treatment. Stable to discharge home with close follow-up with cardiology. Problems addressed as follows: Malignant hypertension Acute failure with reduced ejection fraction Acute heart failure with reduced ejection fraction -Admitted for heart failure and volume overload. Found to have a BNP greater than 5000. Initiated on aggressive diuresis. Cardiology consulted to assist with care. Echo obtained showing EF of 30%. Patient showed gradual improvement with her diuresis, initially on oxygen but able to wean over the first 36 hours to room air. Creatinine slightly bumped with diuresis as patient became more euvolemic. On day of discharge, creatinine 1.7. Tolerating regimen of carvedilol 6.25 mg twice daily, Lasix 40 mg once daily, spironolactone 25 mg once daily, lisinopril 20 mg daily. Pressure daily at patient to 220/110. Improved to 135/77 by day of discharge. -Due to expense, Jardiance was discontinued and Farxiga was ordered as we are able to provide samples on day of discharge. Will continue Farxiga 10 mg daily for heart failure and diabetes benefit New diagnosis of diabetes -A1c 7.8. No known history. Farxiga as above. Minimal insulin requirement during admission. Increased metformin to 1000 mg twice daily. Needs repeat A1c in 3 months. Nutrition consulted, diabetic counseling for diet performed during admission. Patient provided with pamphlets and handouts. SASHA over CKD Hypokalemia - Potassium replaced and improved to 3.8 by day of discharge. No supp lementation on discharge due to use of spironolactone. Magnesium has normalized to 2.1. No further repletion. Needs repeat labs in 1 to 2 weeks when follows up with PCP and cardiology. Kidney function stable at 1.7 creatinine and BUN 30. Tobacco use disorder: Nicotine patch 14 mg daily as needed. Counseled on smoking cessation Total time spent on discharge 40 minutes in counseling, documentation, chart review, and direct care with patient. Exam Data for Last 24 hours Vital signs and Labs for Last 24 Hours: Temp Pulse Resp BP Pulse Ox O2 Del Method O2 Flow Rate 97.6 F 67 16 139/69 93 L Room Air 2 09/08/23 04:00 09/08/23 04:00 09/08/23 04:00 09/08/23 04:00 09/08/23 04:00 09/08/23 04:00 09/07/23 07:00 Laboratory Results - last 24 hr 09/07/23 11:32: POC Glucose 93 09/07/23 15:57: POC Glucose 104 09/07/23 20:12: POC Glucose 240 H 09/08/23 05:48: POC Glucose 127 H I & O for Last 24 hours: Intake & Output 09/05/23 09/06/23 09/07/23 09/08/23 23:59 23:59 23:59 23:59 Intake Total 494.103 / 494.103 515.331 / 347.562 2641 / 1470 240 / 240 Output Total 2800 / 3600 6550 / 6850 1750 / 1750 Balance -2305.897 / -3105.897 -6034.669 / -6094.669 -520 / -280 240 / 240 Weight 97 kg 90.7 kg 92.108 kg 91.535 kg Constitutional Constitutional: no acute distress, obese and cooperative *Routine HEENT Exam Head: Present normocephalic Eye: Present EOMI and PERRL ENT: Present mucous membranes moist Comments: Poor dentition *Routine Neck Exam Neck: Present supple; Absent lymphadenopathy *Routine Respiratory Exam Respiratory: Present CTA bilaterally; Absent rhonchi, wheezes or crackles *Routine Cardiovascular Exam Cardiovascular: Present RRR *Routine Abdominal Exam Abdominal: Present soft and normoactive bowel sounds; Absent tenderness *Routine Rectal Exam Patient deferred: visual exam *Routine Exam Patient deferred: external exam *Routine Extremities Exam Extremities: Absent cyanosis, clubbing or edema *Routine Skin Exam Skin: Present warm; Absent rash *Routine Neurological Exam Neurological: Present alert, oriented X3 and moving all extremities; Absent altered mental status Results Data Completed and Pending Labs on day of discharge: Labs from last 24 hours 09/08/23 09/07/23 09/07/23 05:48 20:12 15:57 POC Glucose 127 H 240 H 104 09/07/23 11:32 POC Glucose 93 DS: Diagnosis Discharge Diagnosis (1) Acute HFrEF (heart failure with reduced ejection fraction): Status: Acute Code(s): I50.21 - Acute systolic (congestive) heart failure (2) Cardiomyopathy: Status: Acute Code(s): I42.9 - Cardiomyopathy, unspecified Qualifiers: Cardiomyopathy type: unspecified Qualified Code(s): I42.9 - Cardiomyopathy, unspecified (3) Acute hypoxemic respiratory failure: Status: Acute Code(s): J96.01 - Acute respiratory failure with hypoxia (4) Mitral valve insufficiency: Status: Acute Code(s): I34.0 - Nonrheumatic mitral (valve) insufficiency Qualifiers: Cardiac valve disease etiology: etiology unspecified Qualified Code(s): I34.0 - Nonrheumatic mitral (valve) insufficiency (5) Hypertensive emergency: Status: Acute Code(s): I16.1 - Hypertensive emergency (6) Tobacco use: Status: Chronic Code(s): Z72.0 - Tobacco use (7) COPD (chronic obstructive pulmonary disease): Status: Chronic Code(s): J44.9 - Chronic obstructive pulmonary disease, unspecified Qualifiers: COPD type: unspecified COPD Qualified Code(s): J44.9 - Chronic obstructive pulmonary disease, unspecified (8) CVA (cerebral vascular accident): Status: Chronic Code(s): I63.9 - Cerebral infarction, unspecified Qualifiers: CVA mechanism: unspecified Qualified Code(s): I63.9 - Cerebral infarction, unspecified (9) Newly diagnosed diabetes: Status: Acute Code(s): E11.9 - Type 2 diabetes mellitus without complications (10) Class II obesity: Status: Acute Code(s): E66.9 - Obesity, unspecified (11) Hypokalemia: Status: Acute Code(s): E87.6 - Hypokalemia (12) CAD in [place] artery: Status: Acute Code(s): I25.10 - Atherosclerotic heart disease of [place] coronary artery without angina pectoris (13) Bilateral lower extremity edema: Status: Acute Code(s): R60.0 - Localized edema Meds Home Medications and Allergies Home Medications Medication Instructions Recorded Confirmed Type aspirin 81 mg tablet,delayed 81 mg PO DAILY 30 days #30 tabs 09/09/23 Rx release atorvastatin 40 mg tablet 40 mg PO HS 30 days #30 tabs 09/09/23 Rx carvedilol 6.25 mg tablet 6.25 mg PO BID 30 days #60 tabs 09/09/23 Rx furosemide 40 mg tablet 40 mg PO DAILY 30 days #30 tabs 09/09/23 Rx spironolactone 25 mg tablet 25 mg PO DAILY 30 days #30 tabs 09/09/23 Rx dapagliflozin propanediol 10 mg 10 mg PO DAILY 30 days #30 tabs 09/10/23 Rx tablet (Farxiga) lisinopril 20 mg tablet 20 mg PO DAILY 30 days #30 tabs 09/10/23 Rx nicotine 14 mg/24 hr daily 14 mg transdermal DAILYP PRN 09/10/23 Rx transdermal patch Nicotine Cravings 28 days #28 ea New Prescriptions to Start Prescriptions: aspirin Betty,Derek atorvastatin Betty,Derek carvedilol Betty,Derek dapagliflozin propanediol [Farxiga] Betty,Derek furosemide Betty,Derek lisinopril Betty,Derek nicotine Betty,Derek spironolactone Betty,Derek Allergies Allergy/AdvReac Type Severity Reaction Status Date / Time No Known Allergies Allergy Verified 09/05/23 14:40 Discharge Plan Disposition Patient Disposition: Home, Self-Care Condition: Fair Discharge Order Discharge Orders: Discharge Order (Routine); Ordered 09/10/23 Ordered By: Derek Hernández Follow up Plan Follow up with: Stephon Cespedes MD [Staff Physician] - 09/12/23 2:15 pm Nat Barber APRN [Nurse Practitioner] - 09/17/23 1:30 pm Prescriptions/Medication Reconciliation: New furosemide 40 mg Tablet 40 mg PO DAILY 30 Days Qty: 30 0RF atorvastatin 40 mg Tablet 40 mg PO HS 30 Days Qty: 30 0RF carvedilol 6.25 mg Tablet 6.25 mg PO BID 30 Days Qty: 60 0RF aspirin 81 mg Tablet,Delayed Release (Dr/Ec) 81 mg PO DAILY 30 Days Qty: 30 0RF spironolactone 25 mg Tablet 25 mg PO DAILY 30 Days Qty: 30 0RF nicotine 14 mg/24 hr Patch 24 Hour 14 mg transdermal DAILYP PRN (Reason: Nicotine Cravings) 28 Days Qty: 28 2RF lisinopril 20 mg Tablet 20 mg PO DAILY 30 Days Qty: 30 0RF dapagliflozin propanediol [Farxiga] 10 mg tablet 10 mg PO DAILY 30 Days Qty: 30 0RF Problem Reconciliation Problems Reviewed?: Yes Patient Discharge Instructions ACTIVITY: Continue current activity DIET: continue same diet and diabetic diet Patient Instructions: How to Check Your Blood Glucose, Type 2 Diabetes, Essential Hypertension, Carbohydrate-Counting Diet, DI for Heart Failure, DI for Cardiac Catheterization, DI for Malignant Hypertension, DI for Surgical Site Infection Providers Primary Care Provider: Provider,Referral Admit Provider: Derek Hernández Attending Provider: Derek Hernández
--- NOTE | 2023-09-12 10:45 | CARE MANAGER ---
Contacted patient related to hospital discharge. Patient states she is doing well. 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 She denies questions or concerns. She has medications as well. JIE Perla
== END 2023-09-10 11:46 | disposition home or self-care (01) | DRG 682 ==
LOC: ER 16:48 → 2ND 16:56
PROVIDERS: Internal Medicine; Nurse Practitioner Acute Care; Nurse Practitioner Family; Physician Assistant; Admitting Provider Internal Medicine Adolescent Medicine; Emergency Provider Emergency Medicine; Visit Provider Internal Medicine Adolescent Medicine
DX: I13.10 Hypertensive heart and chronic kidney disease without heart failure, with stage 1 through stage 4 chronic kidney disease, or unspecified chronic kidney disease (principal); I50.21 Acute systolic (congestive) heart failure; J96.01 Acute respiratory failure with hypoxia; N17.9 Acute kidney failure, unspecified; I42.9 Cardiomyopathy, unspecified; I16.1 Hypertensive emergency; E11.9 Type 2 diabetes mellitus without complications; E87.6 Hypokalemia; N18.9 Chronic kidney disease, unspecified; F17.210 Nicotine dependence, cigarettes, uncomplicated; Z71.6 Tobacco abuse counseling; E11.22 Type 2 diabetes mellitus with diabetic chronic kidney disease; E66.9 Obesity, unspecified; Z68.33 Body mass index [BMI] 33.0-33.9, adult; I34.0 Nonrheumatic mitral (valve) insufficiency; J44.9 Chronic obstructive pulmonary disease, unspecified; Z86.73 Personal history of transient ischemic attack (TIA), and cerebral infarction without residual deficits; I25.10 Atherosclerotic heart disease of native coronary artery without angina pectoris
CPT/HCPCS: 36415; 71045; 80048; 80053; 80061; 81001; 82962; 83036; 83605; 83735; 83880; 84145; 84443; 84484; 85025; 85378; 85610; 87636; 93005; 93306; 93454; 97116; 97163; 97165; 97530; 97535; 99152; 99291; C1725; C1769; J1644; J3475; Q9967

== ENCOUNTER 2023-09-12 13:33 | Outpatient (CLI) | payer SELFPAY ==
[2023-09-12 13:44] LABS: MANUAL DIFFERENTIAL MANUAL DIFFERENTIAL (MANUAL DIFF)
[2023-09-12 14:03] LABS: Basophils # 0.1 K/mm3 (0-0.2); Basophils % 0.7 % (0.1-2.0); Eosinophils # 0.4 K/mm3 (0.0-0.4); Eosinophils % 5.6 % (0.1-12.0); Hematocrit 52.2 % (37.0-47.0); Hemoglobin 16.6 g/dL (12.2-16.2); Lymphocytes # 1.9 K/mm3 (0.7-4.5); Lymphocytes % 25.3 % (10-50); Mean Corpuscular HGB Conc 31.9 g/dL (31.8-35.4); Mean Corpuscular Hemoglobin 29.1 pg (27.0-31.2); Mean Corpuscular Volume 91.4 fl (81-99); Mean Platelet Volume 6.7 fl (7.4-10.4); Monocytes # 0.5 K/mm3 (0.1-1.0); Monocytes % 6.3 % (1.7-9.3); Neutrophils # 4.8 K/mm3 (1.8-7.8); Neutrophils % 62.1 % (37.0-80.0); Platelet Count 256 K/mm3 (142-424); Red Blood Count 5.71 M/mm3 (4.20-5.40); White Blood Count 7.7 K/mm3 (4.8-10.8)
[2023-09-12 15:12] LABS: Anion Gap 13.8 mEq/L (5-15); Blood Urea Nitrogen 43 mg/dl (7-17); Calcium 9.9 mg/dl (8.4-10.2); Carbon Dioxide 25 mmol/L (22.0-30.0); Chloride 102 mmol/L (98-107); Estimated Glomerular Filt Rate 27 ml/min (>60); GFR (African American) 33 ML/MIN (>60); Glucose 156 mg/dl (74-100); Potassium 4.8 mmoL/L (3.5-5.1); Sodium 136 mmol/L (136-145)
[2023-09-12 15:54] LABS: Eosinophils % 5 % (0-3); Lymphocytes % 26 % (10-50); Monocytes % 3 % (2-9); Neutrophils % 66 % (42-76); Platelet Estimate Normal; RBC Morphology Normal; Total Cells Counted 100
== END 2023-09-12 23:59 | disposition home or self-care (01) ==
PROVIDERS: PCP Nurse Practitioner Family; Visit Provider Internal Medicine
DX: I25.10 Atherosclerotic heart disease of native coronary artery without angina pectoris (principal); F17.210 Nicotine dependence, cigarettes, uncomplicated
CPT/HCPCS: 36415; 80048; 85007; 85014; 85018; 85048; 85049

== ENCOUNTER 2023-09-19 15:09 | Outpatient (CLI) | payer SELFPAY ==
[2023-09-19 15:59] LABS: Anion Gap 15.9 mEq/L (5-15); Blood Urea Nitrogen 41 mg/dl (7-17); Carbon Dioxide 24 mmol/L (22.0-30.0); Chloride 104 mmol/L (98-107); Estimated Glomerular Filt Rate 24 ml/min (>60); GFR (African American) 29 ML/MIN (>60); Glucose 157 mg/dl (74-100); Potassium 4.9 mmoL/L (3.5-5.1); Sodium 139 mmol/L (136-145)
== END 2023-09-19 23:59 | disposition home or self-care (01) ==
LOC: LAB.DROPOF 15:10
PROVIDERS: PCP Nurse Practitioner Family; Visit Provider Nurse Practitioner Family
DX: N17.9 Acute kidney failure, unspecified (principal)
CPT/HCPCS: 36415; 80048

== ENCOUNTER 2023-10-15 17:04 | Outpatient (CLI) | payer SELFPAY ==
[2023-10-15 17:13] LABS: Basophils # 0.1 K/mm3 (0-0.2); Basophils % 0.6 % (0.1-2.0); Eosinophils # 0.5 K/mm3 (0.0-0.4); Eosinophils % 4.7 % (0.1-12.0); Hematocrit 47.2 % (37.0-47.0); Hemoglobin 15.3 g/dL (12.2-16.2); Lymphocytes # 1.9 K/mm3 (0.7-4.5); Lymphocytes % 19.3 % (10-50); Mean Corpuscular HGB Conc 32.5 g/dL (31.8-35.4); Mean Corpuscular Volume 89.4 fl (81-99); Mean Platelet Volume 7.3 fl (7.4-10.4); Monocytes # 0.6 K/mm3 (0.1-1.0); Monocytes % 6.1 % (1.7-9.3); Neutrophils # 6.8 K/mm3 (1.8-7.8); Neutrophils % 69.3 % (37.0-80.0); Platelet Count 198 K/mm3 (142-424); Red Blood Count 5.28 M/mm3 (4.20-5.40); Red Cell Distribution Width 14.4 % (11.5-17.5); White Blood Count 9.9 K/mm3 (4.8-10.8)
[2023-10-15 18:12] LABS: Alanine Aminotransferase 32 U/L (12-78); Albumin Level 4.1 g/dl (3.5-5.0); Albumin/Globulin Ratio 1.1 (1.1-1.8); Alkaline Phosphatase 124 U/L (38-126); Anion Gap 14.2 mEq/L (5-15); Aspartate Amino Transferase 36 U/L (14-36); Bilirubin,Total 0.5 mg/dl (0.2-1.3); Blood Urea Nitrogen 35 mg/dl (7-17); Calcium 10.7 mg/dl (8.4-10.2); Carbon Dioxide 25 mmol/L (22.0-30.0); Chloride 103 mmol/L (98-107); Estimated Glomerular Filt Rate 33 ml/min (>60); GFR (African American) 40 ML/MIN (>60); Globulin 3.7 g/dL (1.3-3.2); Glucose 123 mg/dl (74-100); Potassium 5.2 mmoL/L (3.5-5.1); Sodium 137 mmol/L (136-145); Total Protein,Serum 7.8 g/dl (6.3-8.2)
== END 2023-10-15 23:59 | disposition home or self-care (01) ==
LOC: LAB.DROPOF 17:05
PROVIDERS: PCP Nurse Practitioner Family; Visit Provider Nurse Practitioner Family
DX: R53.83 Other fatigue (principal); R41.3 Other amnesia
CPT/HCPCS: 80053; 85025

== ENCOUNTER 2023-11-06 12:48 | Outpatient (CLI) | payer MEDICAID, SELFPAY ==
--- NOTE | 2023-11-06 12:52 | CA_ITS ---
APPROVED REPORT EXAM: Comprehensive 2D, Doppler, and color-flow Echocardiogram Candy Packer: TORY Spear, RVS Ht: 5 ft 4 in Wt: 200lbs BSA: 1.96 BP: 111/70 mmHg Indications: EF check, CAD, COPD, CVA, Smoker, HTN, HLD 2D Dimensions IVSd 1.49 cm LVEF (Visual) 58.60 % PWd 1.06 cm LA Volume 74.00 mL LVDd 5.81 cm LA Volume Index 37.00 mL/m2 (M/F) 16-34 LVDs 3.98 cm M-Mode Dimensions LA Diam 4.09 cm (1.9-4.0) LVDd 5.40 cm (3.5-5.7) LVDs 3.69 cm (3.5-5.7) EF (Teich) 59.10% EPSs 1.15 cm FS 31.70% EDV (Teich) 141.30 mL ESV (Teich) 57.80 mL LV Diastology E Decel Time 227 (160-240 msec) E/A Ratio 0.65 MED A' 6.20 cm/s LAT A' 9.10 cm/s Aortic Valve AI PHT 674.00 ms Mitral Valve MV A Velocity 90.0 (40-130 cm/s) E/A Ratio 0.65 Other Information Study Quality: Fair Conclusion This is a limited TTE to evaluate for LVEF and severity of mitral regurgitation. The left ventricle is normal in size. There is marked increase in LV wall thickness (IVSd 1.4 cm). There is normal global LV systolic function. No regional wall motion abnormalities are noted. LVEF is 55%. Mild mitral regurgitation is present. Compared to prior study from 09/06/2023, the LV systolic function is now recovered. The MR severity has improved. In the setting of improvement of MR severity, SHER is not indicated at this point. However, in the setting of marked increase in LV wall thickness and recent cardiomyopathy, further evaluation with outpatient cardiac MRI (amyloidosis / cardiomyopathy protocol) is recommended. Electronically signed by : Kristan Carr MD 11/07/2023 11:28:00
== END 2023-11-06 23:59 | disposition home or self-care (01) ==
LOC: RT 12:48
PROVIDERS: PCP Nurse Practitioner Family; Visit Provider Physician Assistant
DX: I42.9 Cardiomyopathy, unspecified (principal); I11.9 Hypertensive heart disease without heart failure; I43 Cardiomyopathy in diseases classified elsewhere; F17.210 Nicotine dependence, cigarettes, uncomplicated
CPT/HCPCS: 93308

== ENCOUNTER 2023-11-15 13:39 | Outpatient (CLI) | payer MEDICAID, SELFPAY ==
--- NOTE | 2023-11-15 13:43 | XR_ITS ---
FINAL REPORT CLINICAL HISTORY: right knee pain FINDINGS: RIGHT KNEE 3 views of the right knee were obtained. There is no acute fracture or dislocation. There are moderate tricompartmental degenerative changes. Visualized joint spaces are normally aligned. Soft tissues are unremarkable. IMPRESSION: No acute bony abnormality. Reviewed, Interpreted and Dictated by Wilver Peterson MD Transcribed by Noris Parsons Authenticated and . [facility]
== END 2023-11-15 23:59 | disposition home or self-care (01) ==
LOC: RAD 13:40
PROVIDERS: PCP Nurse Practitioner Family; Visit Provider Nurse Practitioner Family
DX: M25.561 Pain in right knee (principal)
CPT/HCPCS: 73562

== ENCOUNTER 2023-12-26 09:00 | Outpatient (RCR) | payer MEDICAID, SELFPAY ==
--- NOTE | 2023-12-18 16:58 | HMH.PTOPEV ---
PT Outpatient Evaluation Rehab PT Outpatient Evaluation Start: 12/18/23 16:00 Freq: Status: Active Protocol: Document 12/18/23 16:00 EMILY (Rec: 12/18/23 16:58 EMILY [id number]) E-signed By Terri Drpaer, PT Outpatient Therapy Subjective History Subjective History Pt is a 58 y/o female who reports chronic knee pain with acute exacerbation 1 month ago. Pt denies trauma or injury to exacerbate pain. Pt reports medial and lateral right knee pain described as a dull ache. Pt reports pain is worse at night time and often wakes her up. Pt reports pain is aggravated by prolonged standing, walking, and stair climbing. Pt denies sense of instability although does report a nonpainful pop occasionally. Pt reports she often uses a SPC for long distance ambulation to assist with pain. Pt denies falls. Pt had a R knee radiograph on with findings of There is no acute fracture or dislocation. There are moderate tricompartmental degenerative changes. Visualized joint spaces are normally aligned. Soft tissues are unremarkable. Pt reports she was precibed lidocaine patches but she couldn't get them to stay on so she doesn't use them. Pt reports her LUE/ LLE have been numb for 5 years following a CVA. Pt also reports recent hospitalization this spring for heart failure . Medical History: Hx CVA affecting L side 4 years ago, HTN, HLD, Type II Diabetes, Heart failure, COPD New diagnosis of cancer in past 12 No months? Chief Complaint Pain Symptom Type Ache,Dull Symptoms Relieved By Rest/Positioning Symptoms Aggravated By Standing,Physical Activity, Walking Current Functional Limitations Sleeping,Standing,Squatting, Walking,Stairs Symptom Description Intermittent Level of pain today (0-10) 0 Pain scale - at its best (0-10) 0 Pain scale - at its worst (0-10) 6 Hip/Knee Eval Gait Observation General Gait Pattern Observation Antalgic Gait,Decrease Weight Bear (R) Assistive Device Assistive Devices None / NA Palpation Tenderness right Knee Palpation Overall Comment medial and lateral joint line 3/4 TTP MMT Hip Flexion Strength Grade 4- Good- Hip Abduction Strength Grade 4- Good- Hip Adduction Strength Grade 4- Good- Hip Extension Strength Grade 3+ Fair+ Knee Extension Strength Grade 4 Good Knee Flexion Strength Grade 4 Good ROM Knee Extension Active Range of Motion ( 0 degrees) Knee Flexion Active Range of Motion ( 120 degrees) Effusion joint effusion knee exam standard right Mid - Patellar Circumerential Measure ( 40 cm) Special Tests Knee Anterior Tonya Test Negative Right Knee Posterior Sag (Honor Drawer) Test Negative Right Knee Valgus Stress Test Negative Right Knee Varus Stress Test Negative Right Knee Merrick Test Negative Right Lower Extremity Functional Index Activities Today, do you or would you have any difficulty at all with: a.Any of your usual work, housework or A little bit of difficulty school activities b. Your usual hobbies, recreational or A little bit of difficulty sporting activities c. Getting into or out of the bath A little bit of difficulty d. Walking between rooms Moderate difficulty e. Putting on your shoes or socks Moderate difficulty f. Squatting Quite a bit of difficulty g. Lifting an object, like a bag of Quite a bit of difficulty groceries from the floor h. Performing light activities around Moderate difficulty your home i. Performing heavy activities around Quite a bit of difficulty your home j. Getting into or out of a car A little bit of difficulty k. Walking 2 blocks Moderate difficulty l. Walking a mile Quite a bit of difficulty m. Going up or down 10 stairs (about 1 Quite a bit of difficulty flight of stairs) n. Standing for 1 hour Quite a bit of difficulty o. Sitting for 1 hour Moderate difficulty p. Running on even ground A little bit of difficulty q. Running on uneven ground Extreme difficulty or unable to perform activity r. Making sharp turns while running fast Extreme difficulty or unable to perform activity s. Hopping Quite a bit of difficulty t. Rolling over in bed Quite a bit of difficulty LEFI Score Lower Extremity Functional Index Score 33 Outpatient Therapy Assessment Impairments Problems/Impairmments Palpation Tenderness,Impaired Strength,Impaired Endurance, Impaired Gait Pattern,Impaired Walking,Impaired Standing, Impaired Household Care, Impaired Stair Climbing, Impaired Incline Stepping, Impaired Stepping on Uneven Surface,Impaired Squatting, Impaired Recreational Activities,Subjective C/O Pain ,Impaired Self Care/Self Management Prognosis Rehab Potential Good Clinical Impression Consistent with Diagnosis Yes Short Term Goals Number of Weeks 3 Improve LEFI Score Yes: Improve score to at least 38/80 to improve overall QOL Improve Self Care/Self Management Yes Patient to be Ind w/ HEP Yes Fdc Goals Number of Weeks 6 Increase Strength Yes: Improve RLE MMT to 4-4+/5 grossly to assist with function Improve Gait Pattern without Assistive Yes: non-antalgic to decrease Device fall risk Improve Ability to Climb Stairs Yes: 1 flight with HR with pain 2/10 or less to assist with community navigation Improve LEFI Score Yes: Improve score to at least 50/80 to improve overall QOL Decrease Subjective C/O Pain Yes: Improve pain at worst to 2/10 to improve overall QOL Outpatient Therapy Plan of Care Treatment Plan May Include Therapeutic Exercise Including Home Yes Exercise Program Manual Therapy Techniques Yes Neuromuscular Re-education Yes Therapeutic Activities to Return to Yes Previous Functional/Work Level ADL/Self Care Education Yes Dry Needling Yes Thermal Modalities Yes Electrical Stimulation Yes Ultrasound/Phonophoresis Yes Iontophoresis Yes Orthotics/Bracing/Splinting Yes Vasopneumatic Compression Pump Yes Massage Yes Eval/Re-Eval Yes Frequency Times per week 2 Duration Number of Weeks 4-6 Addendums This patient is a candidate for social No or vocational rehab? Patient/Guardian verbally acknowledges Yes understanding of treatment program and consents to further treatment? Patient/Guardian verbally acknowledges Yes understanding of diagnosis, prognosis and goals for treatment? Eval Complexity PT Charges 53221 - Moderate Complexity Shoulder/Elbow Eval Shoulder Objective Measurements Elbow Objective Measurements PHYSICIAN CERTIFICATION: I certify the specified therapy services for Kannan Leonardo are required, authorized, and reviewed every 30 days.
== END 2023-12-26 09:05 | disposition home or self-care (01) ==
LOC: PT 09:00
PROVIDERS: Visit Provider Nurse Practitioner Family
DX: M25.561 Pain in right knee (principal)
CPT/HCPCS: 97110; 97163

== ENCOUNTER 2024-01-09 15:17 | Outpatient (CLI) | payer MEDICAID, SELFPAY ==
[2024-01-09 18:55] LABS: Alanine Aminotransferase 21 U/L (12-78); Albumin Level 4.5 g/dl (3.5-5.0); Albumin/Globulin Ratio 1.2 (1.1-1.8); Alkaline Phosphatase 122 U/L (38-126); Anion Gap 14.9 mEq/L (5-15); Aspartate Amino Transferase 26 U/L (14-36); Bilirubin,Total 0.5 mg/dl (0.2-1.3); Blood Urea Nitrogen 39 mg/dl (7-17); Calcium 10.2 mg/dl (8.4-10.2); Carbon Dioxide 21 mmol/L (22.0-30.0); Chloride 108 mmol/L (98-107); Estimated Glomerular Filt Rate 22 ml/min (>60); GFR (African American) 26 ML/MIN (>60); Globulin 3.8 g/dL (1.3-3.2); Glucose 170 mg/dl (74-100); Potassium 4.9 mmoL/L (3.5-5.1); Sodium 139 mmol/L (136-145); Total Protein,Serum 8.3 g/dl (6.3-8.2)
[2024-01-09 22:01] LABS: Hemoglobin A1C 7.9 % (4.0-6.0)
== END 2024-01-09 23:59 | disposition home or self-care (01) ==
LOC: LAB.DROPOF 01-10 11:08
PROVIDERS: PCP Nurse Practitioner Family; Visit Provider Nurse Practitioner Family
DX: E11.9 Type 2 diabetes mellitus without complications (principal); Z79.85 Long-term (current) use of injectable non-insulin antidiabetic drugs; Z79.84 Long term (current) use of oral hypoglycemic drugs
CPT/HCPCS: 80053; 83036

== ENCOUNTER 2024-03-10 11:15 | Outpatient (CLI) | payer MEDICAID, SELFPAY ==
--- NOTE | 2024-03-10 11:19 | CA_ITS ---
APPROVED REPORT EXAM: Limited 2D Echocardiogram Produce Assistant: Yessi Ferrari RVT Ht: 5 ft 4 in Wt: 198lbs BSA: 1.95 BP: 133/64 mmHg Indications: LV THICKNESS MEASUREMENT,EDEMA,HX OF CMCOPD,SMOKER M-Mode Dimensions RVDd 2.41 cm (0.9-2.6) LA Diam 3.75 cm (1.9-4.0) LVDd 4.13 cm (3.5-5.7) LVDs 2.73 cm (3.5-5.7) IVSd 1.89 cm (0.6-1.1) PWd 0.56 cm (0.6-1.1) EF (Teich) 63.20% FS 33.90% EDV (Teich) 75.50 mL ESV (Teich) 27.80 mL Aortic Valve AO Peak GR. 6.70 mmHg Other Information Study Quality: Fair Conclusion This is a limited TTE to evaluate for LV wall thickness. Limited windows were obtained. The LV is normal in size. There is marked increase in LV wall thickness. IVSD is 1.4 cm. There is normal global LV systolic function. No regional wall motion abnormalities are noted. LVEF is 65%. Of note, moderate AI is also present. The remaining valves were not evaluated in the study. In the setting of marked increased LV wall thickness, further evaluation for infiltrative cardiomyopathy is suggested with cardiac MRI (amyloidosis protocol), PYP nuclear scan, and amyloidosis lab testing. Electronically signed by : Kristan Carr MD 03/11/2024 00:00:26
== END 2024-03-10 23:59 | disposition home or self-care (01) ==
LOC: RT 11:16
PROVIDERS: PCP Nurse Practitioner Family; Visit Provider Physician Assistant
DX: I35.1 Nonrheumatic aortic (valve) insufficiency (principal); I34.0 Nonrheumatic mitral (valve) insufficiency; I42.8 Other cardiomyopathies; I10 Essential (primary) hypertension; I25.10 Atherosclerotic heart disease of native coronary artery without angina pectoris; R94.31 Abnormal electrocardiogram [ECG] [EKG]; E78.2 Mixed hyperlipidemia; J44.9 Chronic obstructive pulmonary disease, unspecified
CPT/HCPCS: 93308

== ENCOUNTER 2024-04-09 15:39 | Outpatient (CLI) | payer MEDICAID, SELFPAY ==
[2024-04-09 17:36] LABS: Microscopic, Urine URINE MICROSCOPIC (MICROSCOPIC)
[2024-04-09 18:49] LABS: Hemoglobin A1C 8.3 % (4.0-6.0)
[2024-04-09 19:00] LABS: Albumin Level 4.5 g/dl (3.5-5.0); Albumin/Globulin Ratio 1.5 (1.1-1.8); Alkaline Phosphatase 134 U/L (38-126); Bilirubin,Total 0.5 mg/dl (0.2-1.3); Blood Urea Nitrogen 49 mg/dl (7-17); Carbon Dioxide 20 mmol/L (22.0-30.0); Estimated Glomerular Filt Rate 19 ml/min (>60); GFR (African American) 23 ML/MIN (>60); Globulin 3.1 g/dL (1.3-3.2); Potassium 5.1 mmoL/L (3.5-5.1); Total Protein,Serum 7.6 g/dl (6.3-8.2)
[2024-04-09 19:02] LABS: Alanine Aminotransferase 15 U/L (12-78); Anion Gap 17.1 mEq/L (5-15); Aspartate Amino Transferase 24 U/L (14-36); Calcium 9.7 mg/dl (8.4-10.2); Chloride 107 mmol/L (98-107); Glucose 123 mg/dl (74-100); Sodium 139 mmol/L (136-145)
[2024-04-09 19:25] LABS: Appearance,Urine CLEAR (Clear); Bilirubin,Urine Negative (Negative); Blood, Urine Negative (Negative); Color,Urine YELLOW (Yellow); Glucose,Urine (UA) 3+ (Negative); Ketones,Urine Negative (Negative); Leukocyte Esterase,Urine Negative (Negative); Nitrate,Urine Negative (Negative); Protein,Urine 1+ (Negative); Urobilinogen,Urine 0.2 EU/dl (0.2)
[2024-04-09 19:41] LABS: HIV (1&2) Antibody Rapid NONREACTIVE (NONREACTIVE)
[2024-04-09 19:42] LABS: Creatinine,Urine Random 94 mg/dL (Not Estab.)
[2024-04-09 20:05] LABS: Microalbumin/Creatinine Ratio 381.9
[2024-04-09 20:34] LABS: Bacteria,Urine 4+ /lpf; RBC,Urine Occasional #/hpf (0-3)
[2024-04-11 07:25] LABS: HCV Ab Non Reactive (Non Reactive)
== END 2024-04-09 23:59 | disposition home or self-care (01) ==
LOC: LAB.DROPOF 04-10 14:01
PROVIDERS: PCP Nurse Practitioner Family; Visit Provider Nurse Practitioner Family
DX: N18.32 Chronic kidney disease, stage 3b (principal); E11.9 Type 2 diabetes mellitus without complications; Z11.59 Encounter for screening for other viral diseases; Z11.4 Encounter for screening for human immunodeficiency virus [HIV]; I10 Essential (primary) hypertension
CPT/HCPCS: 80053; 81001; 82043; 82570; 83036; 84156; 86803; 87086; 87088; 87186; 87389

== ENCOUNTER 2024-04-17 09:41 | Outpatient (CLI) | payer MEDICAID, SELFPAY ==
--- OUTSIDE RECORDS SUMMARY | 2024-04-17 09:44 | XMS_ITS | Encounter Summary ---
Author Organization Healthcare Address [address] [place] [address] Care Team Providers Care Construction Equipment Operator Name Role Phone Azar Carr MD Primary Care Provider [phone] Encounter Details Date Type Department Care Team (Late Contact Info) Description 01/18/2024 Orders Only [facility] [address] [place] [id number] Mariia Mccray CKD (chronic kidney disease) stage 4, GFR 15-29 ml/min (CMS/HCC) (Primary Dx); Vitamin D insufficiency Social History Tobacco Use Types Packs/Day Years Used Date Smoking Tobacco: Never Assessed Comments Unknown Sex and Gender Information Value Date Recorded Sex Assigned at Not on file Legal Sex Female 10:14 AM EDT Gender Identity Not on file Sexual Orientation Not on file documented as of this encounter Plan of Treatment Upcoming Encounters Date Type Department Care Team ([facility] Contact Info) Description 05/02/2024 10:00 AM EST Consult [facility] [address] [place] [id number] Pierre Ordonez MD [address] [place] [address] [phone] Scheduled Orders Name Type Priority Associated Diagnoses Orde r Schedule Renal Function Panel, Plasma Lab Routine CKD (chronic kidney disease) stage 4, GFR 15-29 ml/min (CMS/HCC) Expected: 01/18/2024 (Approximate), Expires: 07/20/2025 CBC W/O Differential Lab Routine CKD (chronic kidney disease) stage 4, GFR 15-29 ml/min ([facility]) Expected: 01/18/2024 (Approximate), Expires: 07/20/2025 Vitamin D 25 Hydroxy Lab Routine CKD (chronic kidney disease) stage 4, GFR 15-29 ml/min ([facility]) Vitamin D insufficiency Expected: 01/18/2024 (Approximate), Expires: 07/20/2025 PTH Intact Total Lab Routine CKD (chronic kidney disease) stage 4, GFR 15-29 ml/min ([facility]) Vitamin D insufficiency Expected: 01/18/2024 (Approximate), Expires: 07/20/2025 Urinalysis with reflex microscopic (Culture NOT Included) Lab Routine CKD (chronic kidney disease) stage 4, GFR 15-29 ml/min ([facility]) Expected: 01/18/2024 (Approximate), Expires: 07/20/2025 Protein, Random, Urine with Creatinine Lab Routine CKD (chronic kidney disease) stage 4, GFR 15-29 ml/min ([facility]) Expected: 01/18/2024 (Approximate), Expires: 07/20/2025 Creatinine, Random, Urine Lab Routine CKD (chronic kidney disease) stage 4, GFR 15-29 ml/min ([facility]) Expected: 01/18/2024 (Approximate), Expires: 07/20/2025 documented as of this encounter Visit Diagnoses Diagnosis CKD (chronic kidney disease) stage 4, GFR 15-29 ml/min ([facility])- Primary Chronic kidney disease, Stage IV (severe) Vitamin D insufficiency documented in this encounter Care Teams Construction Equipment Operator Relationship Specialty Start Date End Date Azar Carr MD [address] [place] [address] [place] [address] PCP - General Cardiology 01/18/24 01/18/24 documented as of this encounter
--- OUTSIDE RECORDS SUMMARY | 2024-04-17 09:44 | XMS_ITS | Clinical Summary ---
Author Organization Healthcare Address [address] [place] [address] Care Team Providers Care Watershed Program Manager Name Role Phone Unavailable Primary Care Provider Unavailabl e Encounters Date Type Department Care Team Description 01/18/2024 Orders Only [facility] [address] [place] [phone] Mariia Mccray CKD (chronic kidney disease) stage 4, GFR 15-29 ml/min (CMS/HCC) (Primary Dx); Vitamin D insufficiency from Last 3 Months Social History Tobacco Use Types Packs/Day Years Used Date Smoking Tobacco: Never Assessed Comments Unknown Sex and Gender Information Value Date Recorded Sex Assigned at Not on file Legal Sex Female 10:14 AM EDT Gender Identity Not on file Sexual Orientation Not on file Plan of Treatment Upcoming Encounters Date Type Department Care Team ([facility] st Contact Info) Description 05/02/2024 10:00 AM EST Consult [facility] [address] [place] [phone] Pierre Ordonez MD [address] [place] [phone] Health Maintenance Due Date Last Done Comments [facility]Y-Depression Screening 1964 [facility]-HIV Screening 1964 [facility]-Hepatitis C Screening 1964 [facility]Y-/Child/Adol SDOH Screenings 1964 UKY- SDOH Screenings 01/22/1982 UKY-Adult SDOH Screenings 01/22/1982 UKY-DTaP,Tdap,and Td Vaccine s (1 - Tdap) 01/22/1983 UKY-Pap Smear 01/22/1985 UKY-Cervical Cancer Screening 01/22/1994 UKY-HPV/Cotest 01/22/1994 CT Colonography 01/22/2009 Colonoscopy 01/22/2009 FIT-DNA 01/22/2009 FIT 01/22/2009 FOBT 01/22/2009 Sigmoidoscopy 01/22/2009 UKY-Colorectal Cancer Screening 01/22/2009 UKY-Breast Cancer Screening 01/22/2014 UKY-Zoster Vaccines (1 of 2) 01/22/2014 [id number] Vaccine (1 - 20 24-25 season) 2024 UKY-Influenza Vaccine (#1) 2024 UKY-RSV Vaccine: 60+ Years o r (1 - 1-dose 75+ series) 01/22/2039 UKY-HIB Vaccines Aged Out No longer e ligible based on patient's age to complete this topic UKY-HPV Vaccines Aged Out No longer e ligible based on patient's age to complete this topic UKY-Hepatitis A Vaccines Aged Out No longer eligible based on patient's age to complete this topic UKY-IPV Vaccines Aged Out No longer e ligible based on patient's age to complete this topic UKY-Pneumococcal Vaccine: Pediatrics (0 to 5 Years) and At-Risk Patients (6 to 64 Years) Aged Out No long er eligible based on patient's age to complete this topic UKY-Rotavirus Vaccines Aged Out No lo nger eligible based on patient's age to complete this topic Insurance [place] [address]
[2024-04-17] MEDS: 0.9 % SODIUM CHLORIDE 50 ML VIAL IV (12:19)
[2024-04-17] MEDS: SODIUM CHLORIDE 0.9% 10ML SYR (RAD ONLY) 10 ML IV (12:19)
[2024-04-17] MEDS: GADOTERIDOL INJ 20ML SYRINGE 20 ML IV (12:20)
== END 2024-04-17 23:59 | disposition home or self-care (01) ==
PROVIDERS: PCP Nurse Practitioner Family; Visit Provider Physician Assistant
DX: R93.1 Abnormal findings on diagnostic imaging of heart and coronary circulation (principal); I51.9 Heart disease, unspecified
CPT/HCPCS: 75561; A9576

== ENCOUNTER 2024-04-22 06:37 | Outpatient (CLI) | payer MEDICAID, SELFPAY ==
--- OUTSIDE RECORDS SUMMARY | 2024-04-22 06:39 | XMS_ITS | Clinical Summary ---
Author Organization Healthcare Address [address] [place] [address] Care Team Providers Care National Account Manager Name Role Phone Unavailable Primary Care Provider Unavailabl e Social History Tobacco Use Types Packs/Day Years Used Date Smoking Tobacco: Never Assessed Comments Unknown Sex and Gender Information Value Date Recorded Sex Assigned at Not on file Legal Sex Female 10:14 AM EDT Gender Identity Not on file Sexual Orientation Not on file Plan of Treatment Upcoming Encounters Date Type Department Care Team (Late st Contact Info) Description 05/02/2024 10:00 AM EST Consult [facility] [address] [place] [phone] Pierre Ordonez MD [address] [place] [phone] Health Maintenance Due Date Last Done Comments UKY-Depression Screening 1964 UKY-HIV Screening 1964 [facility]Y-Hepatitis C Screening 1964 UKY-Infant/Child/Adol SDOH Screenings 1964 UKY- SDOH Screenings 01/22/1982 UKY-Adult SDOH Screenings 01/22/1982 UKY-DTaP,Tdap,and Td Vaccine s (1 - Tdap) 01/22/1983 UKY-Pap Smear 01/22/1985 UKY-Cervical Cancer Screening 01/22/1994 UKY-HPV/Cotest 01/22/1994 CT Colonography 01/22/2009 Colonoscopy 01/22/2009 FIT-DNA 01/22/2009 FIT 01/22/2009 FOBT 01/22/2009 Sigmoidoscopy 01/22/2009 UKY-Colorectal Cancer Screening 01/22/2009 UKY-Breast Cancer Screening 01/22/2014 UKY-Zoster Vaccines (1 of 2) 01/22/2014 [id number] Vaccine (1 - 20 24-25 season) 2024 [...] to complete this topic Insurance [employer] MEDICAID [place]
--- OUTSIDE RECORDS SUMMARY | 2024-04-22 06:39 | XMS_ITS | Encounter Summary ---
Author Organization Healthcare Address [address] [place] [address] Care Team Providers Care Supervisor Logging Name Role Phone Azar Carr MD Primary Care Provider [phone] Encounter Details Date Type Department Care Team (Late Contact Info) Description 01/18/2024 Orders Only [facility] [address] [place] [address] Mariia Mccray CKD (chronic kidney disease) [...] Upcoming Encounters Date Type Department Care Team ([facility] Contact Info) Description 05/02/2024 10:00 AM EST Consult [facility] [address] [place] [phone] Pierre Ordonez MD [address] [place] [phone] Scheduled Orders Name Type Priority Associated Diagnoses Orde r Schedule Renal Function Panel, Plasma Lab Routine CKD (chronic kidney disease) stage 4, GFR 15-29 ml/min (CMS/HCC) Expected: 01/18/2024 (Approximate), Expires: 07/20/2025 CBC W/O Differential Lab Routine CKD (chronic kidney disease) stage 4, GFR 15-29 ml/min ([facility]) Expected: 01/18/2024 (Approximate), Expires: 07/20/2025 Vitamin D 25 Hydroxy Lab Routine CKD (chronic kidney disease) stage 4, GFR 15-29 ml/min ([facility]) Vitamin D insufficiency Expected: 01/18/2024 (Approximate), Expires: 07/20/2025 PTH Intact Total Lab Routine CKD (chronic kidney disease) stage 4, GFR 15-29 ml/min ([facility]) Vitamin D insufficiency Expected: 01/18/2024 (Approximate), Expires: 07/20/2025 Urinalysis with reflex microscopic (Culture NOT Included) Lab Routine CKD (chronic kidney disease) stage 4, GFR 15-29 ml/min ([facility]) Expected: 01/18/2024 (Approximate), Expires: 07/20/2025 Protein, Random, Urine with Creatinine Lab Routine CKD (chronic kidney disease) stage 4, GFR 15-29 ml/min ([facility]) Expected: 01/18/2024 (Approximate), Expires: 07/20/2025 Creatinine, Random, Urine Lab Routine CKD (chronic kidney disease) stage 4, GFR 15-29 ml/min ([facility]) Expected: 01/18/2024 (Approximate), Expires: 07/20/2025 documented as of this encounter Visit Diagnoses Diagnosis CKD (chronic kidney disease) stage 4, GFR 15-29 ml/min ([facility])- Primary Chronic kidney disease, Stage IV (severe) Vitamin D insufficiency documented in this encounter Care Teams Supervisor Logging Relationship Specialty Start Date End Date Azar Carr MD [address] [place] [address] [place] [address] PCP - General Cardiology 01/18/24 01/18/24 documented as of this encounter
--- NOTE | 2024-04-22 07:01 | NM_ITS ---
APPROVED REPORT Adoption Specialist: Procedure: 99mTc-PYP Cardiac Amyloidosis Imaging Clinical Indication: Heart failure, increased LV wall thickness Protocol: The patient received 26.1 mCi 99mTc-PYP intravenously. Planar and SPECT imaging was performed approximately 3 hours post injection. Planar images included anterior, left lateral and ELDON-45 projections. Findings: Visual interpretation: Planar and SPECT images were reviewed The overall quality of the study was good. Semi quantitative SPECT findings showed a grade 2. Impression: 1. Overall, the quality of the study was good. 2. Semi quantitative SPECT findings showed grade 2. 3. 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 This study and report were reviewed and signed by Azar Carr MD (mathematics instructor). Conclusion Electronically signed by : Kristan Carr MD 05/09/2024 00:44:31
[2024-04-22] MEDS: SODIUM CHLORIDE 0.9% 10ML SYR (RAD ONLY) 10 ML IV (08:48)
[2024-04-22] MEDS: PYROPHOSPHATE CARDIAC (PYP);1 DOSE VIAL IV (08:48)
== END 2024-04-22 23:59 | disposition home or self-care (01) ==
LOC: RAD 06:38
PROVIDERS: PCP Nurse Practitioner Family; Visit Provider Physician Assistant
DX: I25.10 Atherosclerotic heart disease of native coronary artery without angina pectoris (principal); I35.1 Nonrheumatic aortic (valve) insufficiency; I34.0 Nonrheumatic mitral (valve) insufficiency; R93.1 Abnormal findings on diagnostic imaging of heart and coronary circulation
CPT/HCPCS: 78803

== ENCOUNTER 2024-04-23 14:36 | Outpatient (CLI) | payer MEDICAID, SELFPAY ==
--- OUTSIDE RECORDS SUMMARY | 2024-04-23 14:37 | XMS_ITS | Clinical Summary ---
Author Organization Healthcare Address [address] [place] [address] Care Team Providers Care Registered Clinical Dietitian Name Role Phone Sunil Nat Pearce APRN Primary Care Provider Allergies No known active allergies Medications aspirin 81 MG EC tablet Take 1 tablet (81 mg) by mouth 1 (one) time each day. Active atorvastatin (Lipitor) 40 MG tablet Take 1 tablet (40 mg) by mouth 1 (one) time each day. Active carvedilol (Coreg) 6.25 MG tablet Take 1 tablet (6.25 mg) by mouth 2 (two) times a day with meals. Active dapagliflozin (Farxiga) 10 MG tablet Take 1 tablet (10 mg) by mouth 1 (one) time each day. Active furosemide (Lasix) 40 MG tablet Take 1 tablet (40 mg) by mouth 1 (one) time each day. Active lidocaine (Lidoderm) 5 % patch Apply 1 patch topically 1 (one) time each day. Remove & discard patch within 12 hours or as directed by MD. Active lisinopril 20 MG tablet Take 1 tablet (20 mg) by mouth 1 (one) time each day. Active spironolactone (Aldactone) 25 MG tablet Take 1 tablet (25 mg) by mouth 1 (one) time each day. Active Social History Tobacco Use Types Packs/Day Years Used Date Smoking Tobacco: Some Days Cigarettes Smokeless Tobacco: Never Tobacco Cessation:Ready to Q uit: Not Asked; Counseling Given: Not Answered Alcohol Use Standard Drinks/Week Comments Never 0 (1 standard drink = 0.6 oz pur e alcohol) Comments Unknown Sex and Gender Information Value Date Recorded Sex Assigned at Not on file Legal Sex Female 10:14 AM EDT Gender Identity Not on file Sexual Orientation Not on file Plan of Treatment Upcoming Encounters Date Type Department Care Team (Late st Contact Info) Description 05/02/2024 10:00 AM EST Consult [facility] [address] [place] [phone] Pierre Ordonez MD [address] [place] [address] Health Maintenance Due Date Last Done Comments UKY-Depression Screening 1964 UKY-HIV Screening 1964 [facility]Y-Hepatitis C Screening 1964 UKY-/Child/Adol SDOH Screenings 1964 UKY-Pneumococcal Vaccine: Pediatrics (0 to 5 Years) and At-Risk Patients (6 to 64 Years) (1 of 2 - PCV) 01/22/1970 UKY- SDOH Screenings 01/22/1982 UKY-Adult SDOH Screenings 01/22/1982 UKY-DTaP,Tdap,and Td Vaccine s (1 - Tdap) 01/22/1983 CT Colonography 01/22/2009 Colonoscopy 01/22/2009 FIT-DNA 01/22/2009 FIT 01/22/2009 FOBT 01/22/2009 Sigmoidoscopy 01/22/2009 UKY-Colorectal Cancer Screening 01/22/2009 UKY-Breast Cancer Screening 01/22/2014 UKY-Zoster Vaccines (1 of 2) 01/22/2014 [id number] Vaccine (1 - 20 24-25 season) 2024 [...] patient's age to complete this topic [place] [address] [employer] MEDICAID [place] [facility] MEDICAID [place] Care Teams Registered Clinical Dietitian Relationship Specialty Start Date End Date Nat Barber APRN [address] [place] [id number] PCP - General 04/22/24
--- OUTSIDE RECORDS SUMMARY | 2024-04-23 14:37 | XMS_ITS | Encounter Summary ---
Author Organization Healthcare Address [address] [place] [address] Care Team Providers Care Heat Treat Worker Name Role Phone Azar Carr MD Primary Care Provider [phone] Encounter Details Date Type Department Care Team (Late Contact Info) Description 01/18/2024 Orders Only [facility] [address] [place] [address] Mariia Mccray CKD (chronic kidney disease) [...] Upcoming Encounters Date Type Department Care Team ([facility] Contact Info) Description 05/02/2024 10:00 AM EST Consult [facility] [address] [place] [phone] Pierre Ordonez MD [address] [place] [phone] Scheduled Orders Name Type Priority Associated Diagnoses Orde r Schedule Renal Function Panel, Plasma Lab Routine CKD (chronic kidney disease) stage 4, GFR 15-29 ml/min (CMS/HCC) Expected: 01/18/2024 (Approximate), Expires: 07/20/2025 CBC W/O Differential Lab Routine CKD (chronic kidney disease) stage 4, GFR 15-29 ml/min ([facility]) Expected: 01/18/2024 (Approximate), Expires: 07/20/2025 Vitamin D 25 Hydroxy Lab Routine CKD (chronic kidney disease) stage 4, GFR 15-29 ml/min ([facility]) Vitamin D insufficiency Expected: 01/18/2024 (Approximate), Expires: 07/20/2025 PTH Intact Total Lab Routine CKD (chronic kidney disease) stage 4, GFR 15-29 ml/min ([facility]) Vitamin D insufficiency Expected: 01/18/2024 (Approximate), Expires: 07/20/2025 Urinalysis with reflex microscopic (Culture NOT Included) Lab Routine CKD (chronic kidney disease) stage 4, GFR 15-29 ml/min ([facility]) Expected: 01/18/2024 (Approximate), Expires: 07/20/2025 Protein, Random, Urine with Creatinine Lab Routine CKD (chronic kidney disease) stage 4, GFR 15-29 ml/min ([facility]) Expected: 01/18/2024 (Approximate), Expires: 07/20/2025 Creatinine, Random, Urine Lab Routine CKD (chronic kidney disease) stage 4, GFR 15-29 ml/min ([facility]) Expected: 01/18/2024 (Approximate), Expires: 07/20/2025 documented as of this encounter Visit Diagnoses Diagnosis CKD (chronic kidney disease) stage 4, GFR 15-29 ml/min ([facility])- Primary Chronic kidney disease, Stage IV (severe) Vitamin D insufficiency documented in this encounter Care Teams Heat Treat Worker Relationship Specialty Start Date End Date Azar Carr MD [address] [place] [address] [place] [address] PCP - General Cardiology 01/18/24 01/18/24 documented as of this encounter
[2024-04-23 16:01] LABS: Albumin Level 4.8 g/dl (3.5-5.0); Chloride 106 mmol/L (98-107); Sodium 138 mmol/L (136-145)
[2024-04-23 16:02] LABS: Potassium 5.2 mmoL/L (3.5-5.1)
[2024-04-23 16:04] LABS: Alanine Aminotransferase 14 U/L (12-78); Anion Gap 16.2 mEq/L (5-15); Aspartate Amino Transferase 24 U/L (14-36); Bilirubin,Unconjugated 0.3 mg/dL (0.0-1.1); Blood Urea Nitrogen 52 mg/dl (7-17); Carbon Dioxide 21 mmol/L (22.0-30.0); Estimated Glomerular Filt Rate 15 ml/min (>60); GFR (African American) 18 ML/MIN (>60)
[2024-04-23 16:05] LABS: Alkaline Phosphatase 123 U/L (38-126); Bilirubin,Direct 0.3 mg/dl (0.0-0.4); Bilirubin,Indirect 0.3 mg/dL (0.0-0.9); Bilirubin,Total 0.6 mg/dl (0.2-1.3); Calcium 9.8 mg/dl (8.4-10.2); Glucose 127 mg/dl (74-100); Total Protein,Serum 8.1 g/dl (6.3-8.2)
[2024-04-23 16:14] LABS: NT Pro Brain Natriuretic Pep. 33.5 pg/mL (0-125)
[2024-04-23 16:18] LABS: Troponin I < 0.01 ng/ml (0.00-0.034)
[2024-04-25 15:05] LABS: Free Kappa Lt Chains 88.6 mg/L (3.3-19.4); Free Lambda Lt Chains 48.7 mg/L (5.7-26.3)
[2024-04-25 16:11] LABS: Albumin 4.1 g/dL (2.9-4.4); Alpha-1-Globulin 0.3 g/dL (0.0-0.4); Gamma Globulin 1.9 g/dL (0.4-1.8); Protein, Total 8.4 g/dL (6.0-8.5)
[2024-04-28 14:09] LABS: Immunoglobulin A, Qn 170 mg/dL (87-352); Immunoglobulin G, Qn 1829 mg/dL (586-1602); Immunoglobulin M, Qn 61 mg/dL (26-217)
[2024-04-28 15:10] LABS: Albumin, U 67.9 % (.); Alpha-1-Globulin, U 3.4 % (.); Alpha-2-Globulin, U 6.4 % (.); Beta Globulin, U 12.5 % (.); Gamma Globulin, U 9.8 % (.); M-Spike, % Not Observed % (Not Observed)
[2024-04-30 08:26] LABS: PDF SCANNED IMAGE
[2024-04-30 08:32] LABS: PDF: SCANNED IMAGE
== END 2024-04-23 23:59 | disposition home or self-care (01) ==
LOC: LAB 14:36
PROVIDERS: Internal Medicine; PCP Nurse Practitioner Family; Visit Provider Nurse Practitioner Family
DX: E85.9 Amyloidosis, unspecified (principal); R93.1 Abnormal findings on diagnostic imaging of heart and coronary circulation; N18.32 Chronic kidney disease, stage 3b; E11.9 Type 2 diabetes mellitus without complications; I25.10 Atherosclerotic heart disease of native coronary artery without angina pectoris; I42.9 Cardiomyopathy, unspecified; I35.1 Nonrheumatic aortic (valve) insufficiency; I34.0 Nonrheumatic mitral (valve) insufficiency; I51.9 Heart disease, unspecified; R94.31 Abnormal electrocardiogram [ECG] [EKG]; E78.2 Mixed hyperlipidemia; I10 Essential (primary) hypertension; J44.9 Chronic obstructive pulmonary disease, unspecified; I50.9 Heart failure, unspecified; K21.9 Gastro-esophageal reflux disease without esophagitis; Z72.0 Tobacco use; Z79.85 Long-term (current) use of injectable non-insulin antidiabetic drugs
CPT/HCPCS: 36415; 80048; 80076; 82784; 83880; 83883; 84155; 84156; 84165; 84166; 84484; 86334; 86335

== ENCOUNTER 2024-04-30 07:54 | Outpatient (CLI) | payer MEDICAID, SELFPAY ==
--- OUTSIDE RECORDS SUMMARY | 2024-04-30 07:57 | XMS_ITS | Clinical Summary ---
Author Organization Healthcare Address [address] [place] [address] Care Team Providers Care Silver Solution Mixer Name Role Phone Sunil Nat Pearce APRN Primary Care Provider [phone] Allergies No known active allergies Medications aspirin [...] Info) Description 05/02/2024 10:00 AM EST Consult [facility] [address] [place] [phone] Pierre Ordonez MD [address] [place] [address] Health Maintenance Due Date Last [...] 01/22/2014 UKY-Zoster Vaccines (1 of 2) 01/22/2014 [id number] Vaccine (1 - 20 24-25 season) 2024 [...] on patient's age to complete this topic Care Teams Silver Solution Mixer Relationship Specialty Start Date End Date Nat Barber, GREG [address] [place] [address] PCP - General 04/22/24
--- OUTSIDE RECORDS SUMMARY | 2024-04-30 07:57 | XMS_ITS | Encounter Summary ---
Author Organization Healthcare Address [address] [place] [address] Care Team Providers Care [place]. Representative Name Role Phone Azar Carr MD Primary Care Provider [phone] Encounter Details Date Type Department Care Team (Late Contact Info) Description 01/18/2024 Orders Only [facility] [address] [place] [address] Mariia Mccray CKD (chronic kidney disease) [...] Encounters Date Type Department Care Team (Late Contact Info) Description 05/02/2024 10:00 AM EST Consult [facility] [address] [place] [phone] Pierre Ordonez MD [address] [place] [phone] Scheduled Orders Name Type Priority Associated Diagnoses Orde r Schedule Renal Function Panel, Plasma Lab Routine CKD (chronic kidney disease) stage 4, GFR 15-29 ml/min (CMS/HCC) Expected: 01/18/2024 (Approximate), Expires: 07/20/2025 CBC W/O Differential Lab Routine CKD (chronic kidney disease) stage 4, GFR 15-29 ml/min ([facility]) Expected: 01/18/2024 (Approximate), Expires: 07/20/2025 Vitamin D 25 Hydroxy Lab Routine CKD (chronic kidney disease) stage 4, GFR 15-29 ml/min ([facility]) Vitamin D insufficiency Expected: 01/18/2024 (Approximate), Expires: 07/20/2025 PTH Intact Total Lab Routine CKD (chronic kidney disease) stage 4, GFR 15-29 ml/min ([facility]) Vitamin D insufficiency Expected: 01/18/2024 (Approximate), Expires: 07/20/2025 Urinalysis with reflex microscopic (Culture NOT Included) Lab Routine CKD (chronic kidney disease) stage 4, GFR 15-29 ml/min ([facility]) Expected: 01/18/2024 (Approximate), Expires: 07/20/2025 Protein, Random, Urine with Creatinine Lab Routine CKD (chronic kidney disease) stage 4, GFR 15-29 ml/min ([facility]) Expected: 01/18/2024 (Approximate), Expires: 07/20/2025 Creatinine, Random, Urine Lab Routine CKD (chronic kidney disease) stage 4, GFR 15-29 ml/min ([facility]) Expected: 01/18/2024 (Approximate), Expires: 07/20/2025 documented as of this encounter Visit Diagnoses Diagnosis CKD (chronic kidney disease) stage 4, GFR 15-29 ml/min ([facility])- Primary Chronic kidney disease, Stage IV (severe) Vitamin D insufficiency documented in this encounter Care Teams U.[place]. Representative Relationship Specialty Start Date End Date Azar Carr MD [address] [place] [address] [place] [address] PCP - General Cardiology 01/18/24 01/18/24 documented as of this encounter
[2024-05-02 16:13] LABS: Albumin, U 63.7 % (.); Alpha-1-Globulin, U 5.1 % (.); Alpha-2-Globulin, U 6.6 % (.); Beta Globulin, U 13.9 % (.); Gamma Globulin, U 10.8 % (.); M-Spike, % Not Observed % (Not Observed); Prot,24hr calculated 430 mg/24 hr (30-150); Protein,Total,Urine 24.9 mg/dL (Not Estab.)
[2024-05-05 12:36] LABS: PDF: SCANNED IMAGE
== END 2024-04-30 23:59 | disposition home or self-care (01) ==
LOC: LAB 07:56
PROVIDERS: Internal Medicine; PCP Nurse Practitioner Family; Visit Provider Physician Assistant
DX: E85.9 Amyloidosis, unspecified (principal); R93.1 Abnormal findings on diagnostic imaging of heart and coronary circulation; N18.32 Chronic kidney disease, stage 3b; E11.9 Type 2 diabetes mellitus without complications; I25.10 Atherosclerotic heart disease of native coronary artery without angina pectoris; I42.9 Cardiomyopathy, unspecified; I35.1 Nonrheumatic aortic (valve) insufficiency; I34.0 Nonrheumatic mitral (valve) insufficiency; I51.9 Heart disease, unspecified; R94.31 Abnormal electrocardiogram [ECG] [EKG]; E78.2 Mixed hyperlipidemia; I10 Essential (primary) hypertension; J44.9 Chronic obstructive pulmonary disease, unspecified
CPT/HCPCS: 84156; 84166

== ENCOUNTER 2024-09-11 13:50 | Outpatient (CLI) | payer BC, SELFPAY ==
[2024-09-11 17:06] LABS: Microscopic, Urine URINE MICROSCOPIC (MICROSCOPIC)
[2024-09-11 17:21] LABS: Appearance,Urine CLEAR (Clear); Basophils % 0.6 % (0.1-2.0); Bilirubin,Urine Negative (Negative); Blood, Urine TRACE-I (Negative); Color,Urine YELLOW (Yellow); Eosinophils # 0.5 K/mm3 (0.0-0.4); Eosinophils % 6.9 % (0.1-12.0); Glucose,Urine (UA) TRACE (Negative); Hematocrit 42.8 % (37.0-47.0); Ketones,Urine Negative (Negative); Leukocyte Esterase,Urine Negative (Negative); Lymphocytes # 2.3 K/mm3 (0.7-4.5); Lymphocytes % 34.1 % (10-50); Mean Corpuscular HGB Conc 32.7 g/dL (31.8-35.4); Mean Corpuscular Hemoglobin 29.7 pg (27.0-31.2); Mean Corpuscular Volume 90.9 fl (81-99); Mean Platelet Volume 9.2 fl (7.4-10.4); Monocytes # 0.4 K/mm3 (0.1-1.0); Monocytes % 5.8 % (1.7-9.3); Neutrophils # 3.5 K/mm3 (1.8-7.8); Neutrophils % 52.3 % (37.0-80.0); Nitrate,Urine Negative (Negative); Nucleated Red Blood Cells # 0 10^3/uL; Nucleated Red Blood Cells % 0 %; Platelet Count 257 K/mm3 (142-424); Protein,Urine 2+ (Negative); Red Blood Count 4.71 M/mm3 (4.20-5.40); Red Cell Distribution Width 12.1 % (11.5-17.5); Red Cell Distribution Width-SD 40.5 fL; Urobilinogen,Urine 0.2 EU/dl (0.2); White Blood Count 6.7 K/mm3 (4.8-10.8)
[2024-09-11 17:31] LABS: Creatinine,Urine Random 48 mg/dL (Not Estab.)
[2024-09-11 17:45] LABS: Albumin Level 4.1 g/dl (3.5-5.0); Chloride 105 mmol/L (98-107); Sodium 140 mmol/L (136-145)
[2024-09-11 17:46] LABS: Potassium 4.6 mmoL/L (3.5-5.1)
[2024-09-11 17:47] LABS: Hemoglobin A1C 8.5 % (4.0-6.0)
[2024-09-11 17:48] LABS: Alanine Aminotransferase 14 U/L (12-78); Albumin/Globulin Ratio 1.2 (1.1-1.8); Alkaline Phosphatase 157 U/L (38-126); Anion Gap 14.6 mEq/L (5-15); Aspartate Amino Transferase 22 U/L (14-36); Bilirubin,Total 0.4 mg/dl (0.2-1.3); Blood Urea Nitrogen 15 mg/dl (7-17); Carbon Dioxide 25 mmol/L (22.0-30.0); Cholesterol 130 mg/dl (140-200); Estimated Glomerular Filt Rate 42 ml/min (>60); GFR (African American) 51 ML/MIN (>60); Globulin 3.5 g/dL (1.3-3.2); Total Protein,Serum 7.6 g/dl (6.3-8.2); Triglycerides 141 mg/dl (30-150); VLDL Cholesterol 28 mg/dL (0-40)
[2024-09-11 17:49] LABS: Calcium 9.4 mg/dl (8.4-10.2); Chol/HDL Ratio 3.9 (1-3.5); Glucose 129 mg/dl (74-100); HDL Cholesterol 33 mg/dl (40-60)
[2024-09-11 17:51] LABS: Bacteria,Urine 4+ /lpf
[2024-09-11 18:00] LABS: Direct LDL Cholesterol 65.95 mg/dL (100-129)
[2024-09-11 19:11] LABS: Microalbumin/Creatinine Ratio 1355.2
== END 2024-09-11 23:59 | disposition home or self-care (01) ==
LOC: LAB.DROPOF 09-12 12:11
PROVIDERS: PCP Nurse Practitioner Family; Visit Provider Nurse Practitioner Family
DX: I12.9 Hypertensive chronic kidney disease with stage 1 through stage 4 chronic kidney disease, or unspecified chronic kidney disease (principal); N18.32 Chronic kidney disease, stage 3b; E11.9 Type 2 diabetes mellitus without complications; J44.9 Chronic obstructive pulmonary disease, unspecified; E78.2 Mixed hyperlipidemia; R41.3 Other amnesia; R53.83 Other fatigue; R60.0 Localized edema; F17.200 Nicotine dependence, unspecified, uncomplicated
CPT/HCPCS: 80053; 80061; 81001; 82043; 82570; 83036; 85025; 87086; 87088; 87186

== ENCOUNTER 2024-10-03 09:36 | Outpatient (CLI) | payer BC, SELFPAY ==
--- NOTE | 2024-10-03 10:00 | CA_ITS ---
FINAL REPORT TECHNIQUE: Multiple transverse and longitudinal scans were performed of the femoropopliteal deep venous system, with augmentation and compression maneuvers. CLINICAL HISTORY: LLE EDEMA, NKI, PT ON ASA COMPARISON: None FINDINGS: DUPLEX VENOUS SONOGRAPHY OF THE LEFT LOWER EXTREMITY Normal phasic flow was noted in the visualized deep venous system. No intraluminal increased echogenicity is noted to suggest thrombus. There is normal compression and augmentation of the venous structures. No abnormal venous collaterals are seen. IMPRESSION: No evidence of deep venous thrombosis of the left lower extremity. Reviewed, Interpreted and Dictated by Regine Bradley MD Transcribed by Jackie Chery Authenticated and [facility]
--- NOTE | 2024-10-03 10:45 | US_ITS ---
FINAL REPORT CLINICAL HISTORY: LLE EDEMA,HTN,DM,SMOKER,CVA,CAD,CLAUDICATION,REST PAIN FINDINGS: Ankle-brachial indices were obtained. The right PUMA is 1.0. The left PUMA is 1.0. IMPRESSION: ABIs are within normal limits bilaterally. Reviewed, Interpreted and Dictated by Regine Bradley MD Transcribed by Isabel Aguilera Authenticated and [facility]
== END 2024-10-03 23:59 | disposition home or self-care (01) ==
LOC: RT 09:37
PROVIDERS: PCP Nurse Practitioner Family; Visit Provider Nurse Practitioner Family
DX: N18.32 Chronic kidney disease, stage 3b (principal); R60.0 Localized edema; E13.9 Other specified diabetes mellitus without complications; E78.2 Mixed hyperlipidemia; I10 Essential (primary) hypertension; Z72.0 Tobacco use
CPT/HCPCS: 93923; 93971

== ENCOUNTER 2024-12-11 16:12 | Outpatient (CLI) | payer BC, SELFPAY ==
[2024-12-11 17:48] LABS: Anion Gap 18.4 mEq/L (5-15); Blood Urea Nitrogen 23 mg/dl (7-17); Calcium 9.8 mg/dl (8.4-10.2); Carbon Dioxide 23 mmol/L (22.0-30.0); Chloride 101 mmol/L (98-107); Creatinine,Serum 1.70 mg/dl (0.52-1.04); Estimated Glomerular Filt Rate 31 ml/min (>60); GFR (African American) 37 ML/MIN (>60); Glucose 287 mg/dl (74-100); Potassium 5.4 mmoL/L (3.5-5.1); Sodium 137 mmol/L (136-145)
[2024-12-11 18:49] LABS: Hemoglobin A1C 10.2 % (4.0-6.0)
--- OUTSIDE RECORDS SUMMARY | 2024-12-12 10:35 | XMS_ITS | Clinical Summary ---
Author Organization Healthcare Address [address] [place] [address] Care Team Providers Care Window Shade Cutter Name Role Phone Nat Barber APRN Primary Care Provider Allergies No known [...] Care Team (Late st Contact Info) Description 02/06/2025 11:40 AM EDT Office Visit [facility] [address] [place] [phone] [place] Hatfield, CEREAL POPPER [address] [phone] Health Maintenance Due Date Last Done Comments UKY-Depression Screening 1964 UKY-HIV Screening 1964 [facility]Y-Hepatitis C Screening 1964 UKY-/Child/Adol SDOH Screenings 1964 UKY- SDOH Screenings 01/22/1982 UKY-Adult SDOH Screenings 01/22/1982 UKY-DTaP,Tdap,and Td Vaccine s (1 - Tdap) 01/22/1983 UKY-Pneumococcal Vaccine: 50 + Years (1 of 2 - PCV) 01/22/1983 CT Colonography 01/22/2009 Colonoscopy 01/22/2009 FIT-DNA 01/22/2009 FIT 01/22/2009 FOBT 01/22/2009 Sigmoidoscopy 01/22/2009 UKY-Colorectal Cancer Screening 01/22/2009 UKY-Breast Cancer Screening 01/22/2014 UKY-Zoster Vaccines (1 of 2) 01/22/2014 [id number] Vaccine (1 - 20 24-25 season) 2024 UKY-Influenza Vaccine (#1) 2025 UKY-RSV Vaccine: 60+ Years o r (1 - 1-dose 75+ series) 01/22/2039 HPV Vaccines Aged Out No longer eligi ble based on patient's age to complete this topic UKY-HIB Vaccines Aged Out No longer e [...] age to complete this topic Care Teams Window Shade Cutter Relationship Specialty Start Date End Date aNt Barber, CEREAL POPPER [address] [place] [address] PCP - General 04/22/24
== END 2024-12-11 23:59 | disposition home or self-care (01) ==
LOC: LAB.DROPOF 12-12 10:33
PROVIDERS: PCP Nurse Practitioner Family; Visit Provider Nurse Practitioner Family
DX: E11.9 Type 2 diabetes mellitus without complications (principal)
CPT/HCPCS: 80048; 83036

== ENCOUNTER 2025-01-23 09:52 | Outpatient (CLI) | payer BC, SELFPAY ==
--- OUTSIDE RECORDS SUMMARY | 2025-01-23 09:55 | XMS_ITS | Clinical Summary ---
Author Organization Healthcare Address [address] [place] [address] Care Team Providers Care Head Sawyer Name Role Phone Nat Barber APRN Primary Care Provider [phone] Allergies No known active allergies Medications aspirin [...] Description 02/06/2025 11:40 AM EDT Office Visit [facility] [address] [place] [phone] Georgia Hatfield, GENETICIST [address] [phone] Health Maintenance Due Date Last [...] 01/22/2014 UKY-Zoster Vaccines (1 of 2) 01/22/2014 [id number] Vaccine (1 - 20 24-25 season) 2024 [...] age to complete this topic Care Teams Head Sawyer Relationship Specialty Start Date End Date Nat Barber, GENETICIST [address] [place] [address] PCP - General 04/22/24
[2025-01-23 10:31] LABS: Hematocrit 43.6 % (37.0-47.0); Hemoglobin 14.4 g/dL (12.2-16.2); Immature Granulocytes % 0.3 %; Mean Corpuscular HGB Conc 33.0 g/dL (31.8-35.4); Mean Corpuscular Hemoglobin 29.7 pg (27.0-31.2); Mean Corpuscular Volume 89.9 fl (81-99); Nucleated Red Blood Cells % 0 %; Platelet Count 277 K/mm3 (142-424); Red Blood Count 4.85 M/mm3 (4.20-5.40); Red Cell Distribution Width-SD 42.6 fL; White Blood Count 7.5 K/mm3 (4.8-10.8)
[2025-01-23 11:46] LABS: Albumin Level 4.4 g/dl (3.5-5.0); Chloride 107 mmol/L (98-107)
[2025-01-23 11:47] LABS: Potassium 5.0 mmoL/L (3.5-5.1); Sodium 138 mmol/L (136-145)
[2025-01-23 11:49] LABS: Alanine Aminotransferase 13 U/L (12-78); Anion Gap 11.0 mEq/L (5-15); Aspartate Amino Transferase 23 U/L (14-36); Bilirubin,Unconjugated 0.2 mg/dL (0.0-1.1); Blood Urea Nitrogen 26 mg/dl (7-17); Carbon Dioxide 25 mmol/L (22.0-30.0); Creatinine,Serum 1.60 mg/dl (0.52-1.04); Estimated Glomerular Filt Rate 33 ml/min (>60); GFR (African American) 40 ML/MIN (>60)
[2025-01-23 11:50] LABS: Alkaline Phosphatase 147 U/L (38-126); Bilirubin,Direct 0.2 mg/dl (0.0-0.4); Bilirubin,Indirect 0.2 mg/dL (0.0-0.9); Bilirubin,Total 0.4 mg/dl (0.2-1.3); Calcium 10.0 mg/dl (8.4-10.2); Cholesterol 193 mg/dl (140-200); Glucose 206 mg/dl (74-100); HDL Cholesterol 30 mg/dl (40-60); Magnesium 2.1 mg/dl (1.6-2.3); Total Protein,Serum 7.8 g/dl (6.3-8.2); Triglycerides 350 mg/dl (30-150)
[2025-01-23 12:08] LABS: Free T4 (Free Thyroxine) 1.26 ng/dl (0.78-2.19)
[2025-01-23 12:25] LABS: Thyroid Stimulating Hormone 1.00 uIU/mL (0.465-4.68)
== END 2025-01-23 23:59 | disposition home or self-care (01) ==
LOC: LAB 09:53
PROVIDERS: PCP Nurse Practitioner Family; Visit Provider Nurse Practitioner
DX: I11.9 Hypertensive heart disease without heart failure (principal); E78.2 Mixed hyperlipidemia; I43 Cardiomyopathy in diseases classified elsewhere
CPT/HCPCS: 36415; 80048; 80061; 80076; 83735; 84439; 84443; 85025